=== PATIENT | female | born 1935 | race Caucasian/White ===

== ENCOUNTER 2016-09-05 15:08 | Emergency (ER) | payer MEDICARE, BC ==
[2016-09-05 16:01] VITALS: RESP 16; TEMP 97.9
--- NOTE | 2016-09-05 16:52 | ED ---
General Adult HPI - General Chief complaint: Fall Stated complaint: Fall/Arm and hip pain Time Seen by Provider: 09/05/16 16:25 Source: patient, RN notes reviewed, old records reviewed Mode of arrival: wheelchair Limitations: no limitations - History of Present Illness Initial comments: This is a 81-year-old female here for evaluation. Patient's today for evaluation of fall. Patient has follow-up with inability to ambulate, right hip pain and right wrist pain. Denied or had no loss of consciousness no blood thinners. Patient's main complaint is right wrist pain and right hip pain - Related Data Home Medications Medication Instructions Recorded Confirmed Ascorbic Acid [Vitamin C] 500 mg PO DAILY 01/14/15 09/05/16 Cholecalciferol [Vitamin D3] 1,000 unit PO DAILY 01/14/15 09/05/16 Citalopram Hydrobromide 20 mg PO DAILY 01/14/15 09/05/16 [Citalopram HBr] Cyanocobalamin [Vitamin B-12] 500 mcg PO DAILY 01/14/15 09/05/16 Lisinopril 10 mg PO DAILY 01/14/15 09/05/16 Meloxicam 15 mg PO DAILY 01/14/15 09/05/16 Multivitamins, Thera [Multivitamin 1 tab PO DAILY 01/14/15 09/05/16 (formulary)] Omeprazole 20 mg PO DAILY 01/14/15 09/05/16 Calcium Carbonate [Calcium] 600 mg PO DAILY 09/05/16 09/05/16 Fluticasone/Salmeterol [Advair 1 puff INHALATION RT-BID 09/05/16 09/05/16 250-50 Diskus] L.acidoph,Paracasei, B.lactis 1 cap PO DAILY 09/05/16 09/05/16 [Probiotic] Simethicone [Gas-X] 125 - 250 mg PO DAILY PRN 09/05/16 09/05/16 traMADol HCL [Ultram] 50 - 100 mg PO Q6HR PRN 09/05/16 09/05/16 Previous Rx's Medication Instructions Recorded HYDROcodone/APAP 5-325MG [[place] 1 tab PO Q6HR PRN #30 tab 09/05/16 5-325] Allergies Allergy/AdvReac Type Severity Reaction Status Date / Time Sulfa (Sulfonamide Allergy Rash/Hives Verified 09/05/16 16:48 Antibiotics) Review of Systems ROS Statement: Those systems with pertinent positive or pertinent negative responses have been documented in the HPI. ROS Other: All systems not noted in ROS Statement are negative. Past Medical History Past Medical History: Chest Pain / Angina, COPD, Hypertension, Osteoarthritis ( OA), Pneumonia Additional Past Medical History / Comment(s): 01/14/15 Pt presented to [facility] ER via EMS with chest pain which was a tightness across chest. Pain began 1-2 hours before arrival to ER. Other HX: IBS, UTIs, chronic back pain, scoliosis , DDD, R sided pneumonia 2013. History of Any Multi-Drug Resistant Organisms: None Reported Past Surgical History: Cholecystectomy, Joint Replacement Additional Past Surgical History / Comment(s): ovarian cyst removed, right knee replacement, colonoscopy-normal. Past Anesthesia/Blood Transfusion Reactions: No Reported Reaction Additional Past Anesthesia/Blood Transfusion Reaction / Comment(s): Pt has never recieved blood. Past Psychological History: Anxiety, Depression Additional Psychological History / Comment(s): Pt resides with her son. She is independent. She uses a walker or cane only if walking a long distance. She drives a car. Smoking Status: Former smoker Past Alcohol Use History: None Reported Additional Past Alcohol Use History / Comment(s): Pt smoked less than a ppd for about 15-20 yrs. She quit smoking in 1987. Past Drug Use History: None Reported - Past Family History Father Family Medical History: Congestive Heart Failure (CHF), Myocardial Infarction ( [place]) Additional Family Medical History / Comment(s): Father of CHF at 68yrs of age. Mother Family Medical History: CVA/TIA Additional Family Medical History / Comment(s): Mother of a massive CVA General Exam Limitations: no limitations General appearance: alert, in no apparent distress Head exam: Present: atraumatic, normocephalic, normal inspection Eye exam: Present: normal appearance, PERRL, EOMI. Absent: scleral icterus, conjunctival injection, periorbital swelling ENT exam: Present: normal exam, mucous membranes moist Neck exam: Present: normal inspection. Absent: tenderness, meningismus, lymphadenopathy Respiratory exam: Present: normal lung sounds bilaterally. Absent: respiratory distress, wheezes, rales, rhonchi, stridor Cardiovascular Exam: Present: regular rate, normal rhythm, normal heart sounds. Absent: systolic murmur, diastolic murmur, rubs, gallop, clicks GI/Abdominal exam: Present: soft, normal bowel sounds. Absent: distended, tenderness, guarding, rebound, rigid Extremities exam: Present: normal inspection, full ROM, normal capillary refill. Absent: tenderness, pedal edema, joint swelling, calf tenderness Back exam: Present: normal inspection Neurological exam: Present: alert, oriented X3, CN II-XII intact Psychiatric exam: Present: normal affect, normal mood Skin exam: Present: warm, dry, intact, normal color. Absent: rash Course Vital Signs 09/05/16 09/05/16 15:57 18:24 Temperature 97.9 F 97.9 F Pulse Rate 68 64 Respiratory 16 16 Rate Blood Pressure 130/78 159/70 O2 Sat by Pulse 98 97 Oximetry - Reevaluation(s) Reevaluation #1: Spoke with on-call orthopedics regarding issue, patient will put in splint and discharged home Procedures - Orthopedic Splinting/Casting Injury #1 Side: right Upper Extremity Injury Location: wrist Upper Extremity Immobilizer: sugar tong splint Medical Decision Making - Medical Decision Making 81 female here status post fall, mechanical fall with right wrist pain right hip pain. No hip fracture, positive right wrist contusion, possible scapholunate dissociation, patient will follow-up with orthopedics tomorrow - Radiology Data Radiology results: report reviewed (X-ray right wrist shows curious for scapholunate fracture, x-ray right hip is negative for acute disease), image reviewed Disposition Clinical Impression: Fall, Sprain of wrist, right Disposition: HOME SELF-CARE Condition: Good Instructions: Fall Prevention for Older Adults (ED), Wrist Sprain (ED) Prescriptions: HYDROcodone/APAP 5-325MG [[place] 5-325] 1 tab PO Q6HR PRN #30 tab PRN Reason: Pain Referrals: Candido Chapepll MD [Primary Care Provider] - 1-2 days
--- NOTE | 2016-09-05 16:54 | XR ---
EXAMINATION TYPE: 4 views right wrist. AP view pelvis and 2 views right hip. DATE OF EXAM: 09/05/2016 4:42 PM COMPARISON: NONE HISTORY: 81-year-old female with wrist and hip pain after fall today FINDINGS: Right wrist: There is TFC and synovial based calcification. Some dorsal soft tissue swelling is noted with lucency seen through the dorsal triquetrum on the lateral view. There is borderline widening of the scapholu janett interval at 2.1 mm. No additional acute fracture seen. Pelvis and right hip: Degenerative changes lower lumbar spine. SI joints appear symmetric and intact. Degenerative changes of the pubic symphysis. There is osteopenia without displaced fracture seen. Mild degenerative change s at the right greater than left hip. IMPRESSION: 1. Right wrist: Findings suspicious for nondisplaced dorsal triquetral fracture. Borderline widening of the scapholunate interval suggests age-indeterminate scapholunate ligament sprain. Correlate for a ny wrist instability. TFC and synovial calcifications are nonspecific but can be seen with CPPD. 2. Pelvis and right hip: Osteopenia without displaced fracture.
[2016-09-05] MEDS ORDERED: HYDROcodone/APAP 5-325MG 1 EACH TAB PO STA (18:04)
[2016-09-05 18:26] VITALS: BP 159/70; PULSE 64
== END 2016-09-05 18:27 | disposition home or self-care (01) ==
LOC: EC 15:08
DX: S63.501A Unspecified sprain of right wrist, initial encounter (principal); M25.551 Pain in right hip; I10 Essential (primary) hypertension; J44.9 Chronic obstructive pulmonary disease, unspecified; M19.90 Unspecified osteoarthritis, unspecified site; F41.9 Anxiety disorder, unspecified; Z87.891 Personal history of nicotine dependence; Z79.1 Long term (current) use of non-steroidal anti-inflammatories (NSAID); Z79.51 Long term (current) use of inhaled steroids; Z79.899 Other long term (current) drug therapy; Z88.2 Allergy status to sulfonamides; Z86.79 Personal history of other diseases of the circulatory system; Z87.19 Personal history of other diseases of the digestive system; W18.30XA Fall on same level, unspecified, initial encounter; Y92.009 Unspecified place in unspecified non-institutional (private) residence as the place of occurrence of the external cause
CPT/HCPCS: 73502; 99283

== ENCOUNTER → 2017-10-25 | Outpatient (CLI) | payer MEDICARE, BC ==
--- NOTE | 2017-10-25 11:32 | US ---
EXAMINATION TYPE: US abdomen complete DATE OF EXAM: 10/25/2017 COMPARISON: MRCP January 16, 2015 CLINICAL HISTORY: R74.8 Abnormal level of liver enzymes. Pt age 82, overlying bowel loops and kyphotic , limited scan EXAM MEASUREMENTS: Liver Length: 11.2 cm Gallbladder Wall: Surgically absent cm CBD: not seen cm Spleen: 9.4 cm Right Kidney: 7.3 x 3.0 x 2.5 cm Left Kidney: 7.5 x 3.6 x 3.4 cm Pancreas: Obscured by bowel gas gallbladder is now surgically absent Liver: Central intrahepatic biliary dilatation Gallbladder: Surgically absent Evidence for sonographic Akhtar's sign: No CBD: extra hepatic dilatation Spleen: wnl Right Kidney: wnl Left Kidney: mass medial between spleen and left kidney unable to determine what source 1.4 x 1.1 x 1.3 cm non vascular Upper IVC: wnl Abd Aorta: Obscured by overlying bowel gas The liver is homogenous. Mild to moderate central intrahepatic biliary dilatation is felt present. Bauer boptimal visualization of extra hepatic biliary system noted on images saved. The intrahepatic portio n of the IVC is within normal limits. Suboptimal evaluation of aorta on images saved due to shadowing from bowel gas. Gallbladder is now surgically absent. Common bile duct is unremarkable. The pancre as is suboptimally evaluated on images saved as there is shadowing from overlying bowel gas. The spl een is unremarkable. Technologist tristan 1.4 cm splenule between left kidney and spleen which correlat es with ultrasound. Kidneys are symmetric and free of hydronephrosis. No renal lesions are seen. IMPRESSION: Suboptimal study, there is suspected persistent mild to moderate central intrahepatic and probable extrahepatic biliary dilatation. Follow-up with CT and/or MRI is advised.
== END | disposition home or self-care (01) ==
LOC: RADUSWWP 10:09
PROVIDERS: ATTEND Family Medicine
DX: R74.8 Abnormal levels of other serum enzymes (principal)
CPT/HCPCS: 76700

== ENCOUNTER 2018-11-23 17:36 | Inpatient (IN) | payer MEDICARE, BC ==
[2018-11-23] MEDS ORDERED: SODIUM CHLORIDE 0.9% 1,000 ML IV STA ×2 (17:42)
[2018-11-23 18:11] LABS: Anisocytosis Slight; Basophils % (A) 0 %; Eosinophils # (A) 0.3 k/uL (0-0.7); Eosinophils % (A) 3 %; HCT 35.8 % (34.0-46.0); HGB 10.7 gm/dL (11.4-16.0); Hypochromasia Moderate; Lymphocytes # (A) 0.5 k/uL (1.0-4.8); Lymphocytes % (A) 6 %; MCHC 29.9 g/dL (31.0-37.0); Monocytes # (A) 0.1 k/uL (0-1.0); Monocytes % (A) 2 %; Neutrophils # (A) 7.7 k/uL (1.3-7.7); Neutrophils % (A) 89 %; Platelet Count 321 k/uL (150-450); RBC 3.98 m/uL (3.80-5.40); RDW 17.8 % (11.5-15.5); WBC 8.6 k/uL (3.8-10.6)
[2018-11-23 18:19] LABS: Albumin 3.4 g/dL (3.5-5.0); Calcium 8.9 mg/dL (8.4-10.2); Magnesium 1.8 mg/dL (1.6-2.3); Phosphorus 3.4 mg/dL (2.5-4.5); Potassium 5.9 mmol/L (3.5-5.1); Total Bilirubin 10.1 mg/dL (0.2-1.3); Total Protein 6.7 g/dL (6.3-8.2)
--- NOTE | 2018-11-23 18:20 | ED ---
Weakness HPI - General Chief complaint: Weakness Stated complaint: weakness, jaundice, fever Time Seen by Provider: 11/23/18 17:42 Source: patient, RN notes reviewed, old records reviewed Mode of arrival: EMS Limitations: no limitations - History of Present Illness Initial comments: This is an 83-year-old female the ER for evaluation. Patient resents today for evaluation of significant jaundice fever and weakness. Patient is found to be very weak and not feeling well. No recent travel history or sick contacts. Patient has no prior history of similar. Does have history of stent placement, bile duct stent placement. Denying any abdominal pain currently MD Complaint: generalized weakness -: unknown Location: generalized Severity: severe Severity scale (1-10): 9 Consistency: constant Improves with: none Worsens with: none Context: history of similar Associated Symptoms: loss of appetite, nausea/vomiting, shortness of breath - Related Data Home Medications Medication Instructions Recorded Confirmed Ascorbic Acid [Vitamin C] 500 mg PO DAILY 01/14/15 11/23/18 Cholecalciferol [Vitamin D3 (25 1,000 unit PO DAILY 01/14/15 11/23/18 Mcg = 1000 Iu)] Cyanocobalamin [Vitamin B-12] 500 mcg PO DAILY 01/14/15 11/23/18 Lisinopril 10 mg PO DAILY 01/14/15 11/23/18 Meloxicam 15 mg PO DAILY 01/14/15 11/23/18 Multivitamins, Thera [Multivitamin 1 tab PO DAILY 01/14/15 11/23/18 (formulary)] Omeprazole 20 mg PO DAILY 01/14/15 11/23/18 Calcium Carbonate [Calcium] 600 mg PO DAILY 09/05/16 11/23/18 Fluticasone/Salmeterol [Advair 1 puff INHALATION RT-BID 09/05/16 11/23/18 250-50 Diskus] L.acidoph,Paracasei, B.lactis 1 cap PO DAILY 09/05/16 11/23/18 [Probiotic] Simethicone [Gas-X] 125 - 250 mg PO DAILY PRN 09/05/16 11/23/18 traMADol HCL [Ultram] 50 mg PO Q6HR PRN 09/05/16 11/23/18 Nystatin 1 applic TOPICAL BID 11/23/18 11/23/18 Sertraline [Zoloft] 50 mg PO DAILY 11/23/18 11/23/18 Allergies Allergy/AdvReac Type Severity Reaction Status Date / Time Sulfa (Sulfonamide Allergy Rash/Hives Verified 11/23/18 19:04 Antibiotics) Review of Systems ROS Statement: Those systems with pertinent positive or pertinent negative responses have been documented in the HPI. ROS Other: All systems not noted in ROS Statement are negative. Past Medical History Past Medical History: Chest Pain / Angina, COPD, Hypertension, Osteoarthritis (OA), Pneumonia Additional Past Medical History / Comment(s): 01/14/15 Pt presented to [facility] ER via EMS with chest pain which was a tightness across chest. Pain began 1-2 hours before arrival to ER. Other HX: IBS, UTIs, chronic back pain, scoliosis, DDD, R sided pneumonia 2013. History of Any Multi-Drug Resistant Organisms: None Reported Past Surgical History: Cholecystectomy, Joint Replacement Additional Past Surgical History / Comment(s): ovarian cyst removed, right knee replacement, colonoscopy-normal. Past Anesthesia/Blood Transfusion Reactions: No Reported Reaction Additional Past Anesthesia/Blood Transfusion Reaction / Comment(s): Pt has never recieved blood. Past Psychological History: Anxiety, Depression Smoking Status: Former smoker Past Alcohol Use History: None Reported Past Drug Use History: None Reported - Past Family History Father Family Medical History: Congestive Heart Failure (CHF), Myocardial Infarction ([place]) Additional Family Medical History / Comment(s): Father of CHF at 68yrs of age. Mother Family Medical History: CVA/TIA Additional Family Medical History / Comment(s): Mother of a massive CVA General Exam - General Exam Comments Initial Comments: jaundice Limitations: no limitations General appearance: alert, in no apparent distress Head exam: Present: atraumatic, normocephalic, normal inspection Eye exam: Present: normal appearance, PERRL, EOMI. Absent: scleral icterus, conjunctival injection, periorbital swelling ENT exam: Present: normal exam, mucous membranes moist Neck exam: Present: normal inspection. Absent: tenderness, meningismus, lymphadenopathy Respiratory exam: Present: normal lung sounds bilaterally. Absent: respiratory distress, wheezes, rales, rhonchi, stridor Cardiovascular Exam: Present: regular rate, normal rhythm, normal heart sounds. Absent: systolic murmur, diastolic murmur, rubs, gallop, clicks GI/Abdominal exam: Present: soft, normal bowel sounds. Absent: distended, tenderness, guarding, rebound, rigid Extremities exam: Present: normal inspection, full ROM, normal capillary refill. Absent: tenderness, pedal edema, joint swelling, calf tenderness Back exam: Present: normal inspection Neurological exam: Present: alert, oriented X3, CN II-XII intact Psychiatric exam: Present: normal affect, normal mood Skin exam: Present: warm, dry, intact, normal color. Absent: rash Course Vital Signs 11/23/18 11/23/18 11/23/18 17:45 17:47 18:20 Temperature 100.1 F H Pulse Rate 132 H 86 Pulse Rate [ 135 H Left Sitting Drafter (Cad) Electrical ] Respiratory 18 16 Rate Blood Pressure 111/70 116/61 O2 Sat by Pulse 96 100 Oximetry 11/23/18 11/23/18 11/23/18 19:05 21:24 23:24 Temperature 98.7 F 98.4 F Pulse Rate 92 101 H 70 Pulse Rate [ Left Sitting Drafter (Cad) Electrical ] Respiratory 16 18 18 Rate Blood Pressure 116/71 122/71 132/74 O2 Sat by Pulse 99 96 95 Oximetry - Reevaluation(s) Reevaluation #1: Medical records reviewed Patient is without distress Spoke with Dr. Jack will evaluate patient in regards to possible stent placement or change placement, evaluation for infection EKG Findings - EKG Comments: EKG Findings:: EKG shows A. fib rate of 96, QRS 80, QTC 429 Medical Decision Making - Medical Decision Making 83 female the ER for evaluation, patient has possible stent migration of bile duct versus infection, patient replace on antibiotics hydration to reevaluate lab values the morning and evaluation by GI - Lab Data Result diagrams: 11/23/18 17:55 11/24/18 05:00 Lab Results 11/23/18 11/23/18 11/23/18 Range/Units 17:55 17:55 17:55 WBC 8.6 (3.8-10.6) k/uL RBC 3.98 (3.80-5.40) m/uL Hgb 10.7 L (11.4-16.0) gm/dL Hct 35.8 (34.0-46.0) % MCV 90.0 (80.0-100.0) fL MCH 27.0 (25.0-35.0) pg MCHC 29.9 L (31.0-37.0) g/dL RDW 17.8 H (11.5-15.5) % Plt Count 321 (150-450) k/uL Neutrophils % 89 % Lymphocytes % 6 % Monocytes % 2 % Eosinophils % 3 % Basophils % 0 % Neutrophils # 7.7 (1.3-7.7) k/uL Lymphocytes # 0.5 L (1.0-4.8) k/uL Monocytes # 0.1 (0-1.0) k/uL Eosinophils # 0.3 (0-0.7) k/uL Basophils # 0.0 (0-0.2) k/uL Hypochromasia Moderate Anisocytosis Slight PT (9.0-12.0) sec INR (<1.2) APTT (22.0-30.0) sec Sodium 138 (137-145) mmol/L Potassium 5.9 H (3.5-5.1) mmol/L Chloride 108 H (98-107) mmol/L Carbon Dioxide 19 L (22-30) mmol/L Anion Gap 11 mmol/L BUN 39 H (7-17) mg/dL Creatinine 1.39 H (0.52-1.04) mg/dL Est GFR (CKD-EPI)AfAm 41 (>60 ml/min/1.73 sqM) Est GFR (CKD-EPI)NonAf 36 (>60 ml/min/1.73 sqM) Glucose 93 (74-99) mg/dL Plasma Lactic Acid Kenny 1.6 (0.7-2.0) mmol/L Calcium 8.9 (8.4-10.2) mg/dL Phosphorus 3.4 (2.5-4.5) mg/dL Magnesium 1.8 (1.6-2.3) mg/dL Total Bilirubin 10.1 H (0.2-1.3) mg/dL AST 228 H (14-36) U/L ALT 100 H (9-52) U/L Alkaline Phosphatase 895 H (38-126) U/L Creatine Kinase 53 (30-135) U/L Troponin I (0.000-0.034) ng/mL Total Protein 6.7 (6.3-8.2) g/dL Albumin 3.4 L (3.5-5.0) g/dL Amylase 36 (30-110) U/L Lipase 67 (23-300) U/L Blood Type Blood Type Confirm Blood Type Recheck Antibody Screen Spec Expiration Date 11/23/18 11/23/18 11/23/18 Range/Units 17:55 17:55 17:55 WBC (3.8-10.6) k/uL RBC (3.80-5.40) m/uL Hgb (11.4-16.0) gm/dL Hct (34.0-46.0) % MCV (80.0-100.0) fL MCH (25.0-35.0) pg MCHC (31.0-37.0) g/dL RDW (11.5-15.5) % Plt Count (150-450) k/uL Neutrophils % % Lymphocytes % % Monocytes % % Eosinophils % % Basophils % % Neutrophils # (1.3-7.7) k/uL Lymphocytes # (1.0-4.8) k/uL Monocytes # (0-1.0) k/uL Eosinophils # (0-0.7) k/uL Basophils # (0-0.2) k/uL Hypochromasia Anisocytosis PT 10.9 (9.0-12.0) sec INR 1.0 (<1.2) APTT 18.7 L (22.0-30.0) sec Sodium (137-145) mmol/L Potassium (3.5-5.1) mmol/L Chloride (98-107) mmol/L Carbon Dioxide (22-30) mmol/L Anion Gap mmol/L BUN (7-17) mg/dL Creatinine (0.52-1.04) mg/dL Est GFR (CKD-EPI)AfAm (>60 ml/min/1.73 sqM) Est GFR (CKD-EPI)NonAf (>60 ml/min/1.73 sqM) Glucose (74-99) mg/dL Plasma Lactic Acid Kenny (0.7-2.0) mmol/L Calcium (8.4-10.2) mg/dL Phosphorus (2.5-4.5) mg/dL Magnesium (1.6-2.3) mg/dL Total Bilirubin (0.2-1.3) mg/dL AST (14-36) U/L ALT (9-52) U/L Alkaline Phosphatase (38-126) U/L Creatine Kinase (30-135) U/L Troponin I 0.490 H* (0.000-0.034) ng/mL Total Protein (6.3-8.2) g/dL Albumin (3.5-5.0) g/dL Amylase (30-110) U/L Lipase (23-300) U/L Blood Type O Positive Blood Type Confirm Blood Type Recheck CABO Indicated Antibody Screen NEGATIVE Spec Expiration Date 11/26/2018235411/23/18 Range/Units 18:25 WBC (3.8-10.6) k/uL RBC (3.80-5.40) m/uL Hgb (11.4-16.0) gm/dL Hct (34.0-46.0) % MCV (80.0-100.0) fL MCH (25.0-35.0) pg MCHC (31.0-37.0) g/dL RDW (11.5-15.5) % Plt Count (150-450) k/uL Neutrophils % % Lymphocytes % % Monocytes % % Eosinophils % % Basophils % % Neutrophils # (1.3-7.7) k/uL Lymphocytes # (1.0-4.8) k/uL Monocytes # (0-1.0) k/uL Eosinophils # (0-0.7) k/uL Basophils # (0-0.2) k/uL Hypochromasia Anisocytosis PT (9.0-12.0) sec INR (<1.2) APTT (22.0-30.0) sec Sodium (137-145) mmol/L Potassium (3.5-5.1) mmol/L Chloride (98-107) mmol/L Carbon Dioxide (22-30) mmol/L Anion Gap mmol/L BUN (7-17) mg/dL Creatinine (0.52-1.04) mg/dL Est GFR (CKD-EPI)AfAm (>60 ml/min/1.73 sqM) Est GFR (CKD-EPI)NonAf (>60 ml/min/1.73 sqM) Glucose (74-99) mg/dL Plasma Lactic Acid Kenny (0.7-2.0) mmol/L Calcium (8.4-10.2) mg/dL Phosphorus (2.5-4.5) mg/dL Magnesium (1.6-2.3) mg/dL Total Bilirubin (0.2-1.3) mg/dL AST (14-36) U/L ALT (9-52) U/L Alkaline Phosphatase (38-126) U/L Creatine Kinase (30-135) U/L Troponin I (0.000-0.034) ng/mL Total Protein (6.3-8.2) g/dL Albumin (3.5-5.0) g/dL Amylase (30-110) U/L Lipase (23-300) U/L Blood Type Blood Type Confirm O Positive Blood Type Recheck Antibody Screen Spec Expiration Date - Radiology Data Radiology results: report reviewed (CT of abdomen pelvis shows possible migration of bowel duct stent, ultrasound gallbladder shows significant dilation of bile duct), image reviewed Critical Care Time Critical Care Time: Yes Total Critical Care Time: 31 Disposition Clinical Impression: Fever, Dehydration, Hyperbilirubinemia, Cholangitis Disposition: ADMITTED IP TO [facility] Condition: Fair Is patient prescribed a controlled substance at d/c from ED?: No
[2018-11-23 18:41] LABS: Prothrombin Time 10.9 sec (9.0-12.0)
[2018-11-23 18:44] LABS: Partial Thromboplastin Time 18.7 sec (22.0-30.0)
--- NOTE | 2018-11-23 20:23 | CT ---
EXAMINATION TYPE: CT abdomen pelvis wo con DATE OF EXAM: 11/23/2018 COMPARISON: None HISTORY: Weakness, fever and jaundice. CT DLP: 398.6 mGycm Automated exposure control for dose reduction was used. TECHNIQUE: Helical acquisition of images was performed from the lung bases through the pelvis. FINDINGS: There is coarse interstitial density at the lung bases. There is large hiatal hernia. There is intrat horacic stomach. There is no pericardial effusion. Spleen is intact. There is no evidence of pancreat ic mass. There is biliary stent. The bile ducts appear dilated. Common bile duct is 2.3 cm. There is no definite discrete liver mass. There is no adrenal mass. Kidneys have normal size. There is no hydronephrosis. There are several sma ll calculi in the right kidney to measure up to 3 mm. There is no hydronephrosis. There is no retrope ritoneal adenopathy. Abdominal aorta is atheromatous. Ureters are not dilated. Bladder distends adriana hly. There is no free fluid in the pelvis. There is no evidence of bowel obstruction. There is no int estinal wall thickening. There is thoracolumbar dextroscoliosis. There are spondylotic changes in the thoracic and lumbar spine. There is osteopenia. Bony pelvis appears intact. IMPRESSION: DILATED BILE DUCTS WITH BILIARY STENT THAT COULD BE MALPOSITIONED IN THE COMMON HEPATIC DUCT AND COMM ON BILE DUCT. STENT DOES NOT APPEAR TO BE IN THE DUODENUM. ATHEROSCLEROTIC VASCULAR DISEASE. FIBROTIC CHANGES AT THE LUNG BASES. LARGE HIATAL HERNIA.
[2018-11-23] MEDS ORDERED: PIPERACILLIN-TAZOBACTAM 3.375 GM in SODIUM CHLORIDE 0.9% 100 ML IVPB STA (20:54)
[2018-11-23] MEDS: SODIUM CHLORIDE 0.9% 500 ML 500 ML IV SCH (22:34)
--- NOTE | 2018-11-23 22:44 | US ---
EXAM: US Abdomen Complete CLINICAL HISTORY: ITS.REASON US Reason: Pain TECHNIQUE: Real-time ultrasound of the abdomen (complete) with image documentation. COMPARISON: CT abdomen/pelvis on 11/23/2018 FINDINGS: Liver: Measures 17.5 cm, mildly enlarged. Increased echogenicity is suggestive of hepatic steatosis. No focal lesion. Gallbladder: Prior cholecystectomy. Biliary tree: Enlarged common bile duct containing echogenic material and shadowing structure, concerning for choledocholithiasis. Intrahepatic biliary dilatation. Pancreas: Visualized portions are unremarkable. Right kidney: Measures 10.0 cm in length. No hydronephrosis or stone. No mass. Peritoneal space: Normal. No free fluid. IVC: Visualized portions are unremarkable. IMPRESSION: Enlarged common bile duct containing echogenic material and shadowing structure, concerning for choledocholithiasis. Intrahepatic biliary dilatation. Further evaluation could be performed with ERCP or MRCP if clinically indicated. Mild hepatomegaly.
[2018-11-24 00:10] LABS: Glucose,Whole Blood 92 mg/dL (75-99)
[2018-11-24 00:42] VITALS: BMI 23.2
[2018-11-24] MEDS: SODIUM CHLORIDE 0.9% 1,000 ML IV SCH ×3 (04:43→12:39)
[2018-11-24 05:35] LABS: ALT 84 U/L (9-52); AST 138 U/L (14-36); African American GFR (CKD) 44 (>60 ml/min/1.73 sqM); Albumin 2.5 g/dL (3.5-5.0); Alkaline Phosphatase 709 U/L (38-126); Anion Gap 8 mmol/L; Blood Urea Nitrogen 32 mg/dL (7-17); Calcium 8.4 mg/dL (8.4-10.2); Carbon Dioxide 19 mmol/L (22-30); Chloride 113 mmol/L (98-107); Glucose 80 mg/dL (74-99); Potassium 4.4 mmol/L (3.5-5.1); Sodium 140 mmol/L (137-145); Total Bilirubin 7.3 mg/dL (0.2-1.3); Total Protein 5.3 g/dL (6.3-8.2)
[2018-11-24 05:36] LABS: Amylase <30 U/L (30-110)
[2018-11-24] MEDS ORDERED: PANTOPRAZOLE 40 MG/10 ML VIAL IV SCH (09:00)
[2018-11-24] MEDS: PIPERACILLIN-TAZOBACTAM 3.375 GM in SODIUM CHLORIDE 0.9% 100 ML IVPB SCH ×2 (09:31→16:23)
[2018-11-24] MEDS ORDERED: traMADol 50 MG TAB PO PRN (12:10)
[2018-11-24] MEDS ORDERED: SODIUM CHLORIDE 0.45% 1,000 ML IV SCH (12:15)
--- NOTE | 2018-11-24 14:19 | P.HPIM ---
History of Present Illness 83-year-old female was brought in because of generalized weakness and jaundice and found to have highly elevated bilirubin of 7.1 and found to have choledocholithiasis and was febrile probably ascending cholangeitis patient had a biliary stent in 2013 which appears to be partly misplaced may be converted into her symptoms patient was started on Zosyn. Gastroenterology evaluated the patient patient probably need to be transferred to tertiary center for the stent removal. Patient denies significant abdominal pain abdomen is soft nontender. Patient has blood cultures that are positive for gram-negative bacilli. Repeat blood cultures will be obtained here. Review of Systems REVIEW OF SYSTEMS: CONSTITUTIONAL: As mentioned in HPI HEENT: No recent visual problems or hearing problems. Denied any sore throat. CARDIOVASCULAR: No chest pain, orthopnea, PND, no palpitations, no syncope. PULMONARY: No shortness of breath, no cough, no hemoptysis. GASTROINTESTINAL: No diarrhea, no nausea, no vomiting, no abdominal pain. NEUROLOGICAL: No headaches, no weakness, no numbness. HEMATOLOGICAL: Denies any bleeding or petechiae. GENITOURINARY: Denies any burning micturition, frequency, or urgency. MUSCULOSKELETAL/RHEUMATOLOGICAL: Denies any joint pain, swelling, or any muscle pain. ENDOCRINE: Denies any polyuria or polydipsia. The rest of the 14-point review of systems is negative. Past Medical History Past Medical History: Atrial Fibrillation, Chest Pain / Angina, COPD, Hypertension, Osteoarthritis (OA), Pneumonia Additional Past Medical History / Comment(s): Other HX: IBS, UTIs, chronic back pain, scoliosis, DDD, R sided pneumonia 2013. History of Any Multi-Drug Resistant Organisms: None Reported Past Surgical History: Cholecystectomy, Joint Replacement Additional Past Surgical History / Comment(s): ovarian cyst removed, right knee replacement, colonoscopy-normal. Past Anesthesia/Blood Transfusion Reactions: No Reported Reaction Additional Past Anesthesia/Blood Transfusion Reaction / Comment(s): Pt has never recieved blood. Past Psychological History: Anxiety, Depression Additional Psychological History / Comment(s): Pt resides with her son. She is independent. She uses a walker or cane only if walking a long distance. Smoking Status: Former smoker Past Alcohol Use History: None Reported Additional Past Alcohol Use History / Comment(s): Pt smoked less than a ppd for about 15-20 yrs. She quit smoking in 1987. Past Drug Use History: None Reported - Past Family History Father Family Medical History: Congestive Heart Failure (CHF), Myocardial Infarction ([place]) Additional Family Medical History / Comment(s): Father of CHF at 68yrs of age. Mother Family Medical History: CVA/TIA Additional Family Medical History / Comment(s): Mother of a massive CVA Medications and Allergies Home Medications Medication Instructions Recorded Confirmed Type Ascorbic Acid [Vitamin C] 500 mg PO DAILY 01/14/15 11/23/18 History Cholecalciferol [Vitamin D3 (25 1,000 unit PO DAILY 01/14/15 11/23/18 History Mcg = 1000 Iu)] Cyanocobalamin [Vitamin B-12] 500 mcg PO DAILY 01/14/15 11/23/18 History Lisinopril 10 mg PO DAILY 01/14/15 11/23/18 History Meloxicam 15 mg PO DAILY 01/14/15 11/23/18 History Multivitamins, Thera [Multivitamin 1 tab PO DAILY 01/14/15 11/23/18 History (formulary)] Omeprazole 20 mg PO DAILY 01/14/15 11/23/18 History Calcium Carbonate [Calcium] 600 mg PO DAILY 09/05/16 11/23/18 History Fluticasone/Salmeterol [Advair 1 puff INHALATION RT-BID 09/05/16 11/23/18 History 250-50 Diskus] L.acidoph,Paracasei, B.lactis 1 cap PO DAILY 09/05/16 11/23/18 History [Probiotic] Simethicone [Gas-X] 125 - 250 mg PO DAILY PRN 09/05/16 11/23/18 History traMADol HCL [Ultram] 50 mg PO Q6HR PRN 09/05/16 11/23/18 History Nystatin 1 applic TOPICAL BID 11/23/18 11/23/18 History Sertraline [Zoloft] 50 mg PO DAILY 11/23/18 11/23/18 History Allergies Allergy/AdvReac Type Severity Reaction Status Date / Time Sulfa (Sulfonamide Allergy Rash/Hives Verified 11/23/18 19:04 Antibiotics) Physical Exam Vitals: Vital Signs Temp Pulse Pulse Resp BP Pulse Ox 11/24/18 12:00 97.8 F 62 16 144/65 94 L 11/24/18 10:00 56 L 18 140/68 11/24/18 09:00 97.7 F 58 L 17 147/75 11/24/18 08:00 70 12 174/80 11/24/18 07:00 63 14 134/92 11/24/18 06:00 55 L 20 128/59 11/24/18 05:00 61 14 137/74 11/24/18 04:00 58 L 18 132/83 98 11/24/18 03:00 61 15 135/65 11/24/18 02:00 75 20 11/24/18 01:00 97.9 F 70 16 142/73 99 11/24/18 00:00 20 11/23/18 23:24 98.4 F 70 18 132/74 95 11/23/18 21:24 98.7 F 101 H 18 122/71 96 11/23/18 19:05 92 16 116/71 99 11/23/18 18:20 86 16 116/61 100 11/23/18 17:47 100.1 F H 132 H 18 111/70 96 11/23/18 17:45 135 H Intake and Output 11/23/18 11/24/18 11/24/18 22:59 06:59 14:59 Output Total 150 Balance -150 Output: Urine 150 Other: Voiding Method Bedpan Bedpan # Voids 1 # Bowel Movements 1 Weight 63.503 kg 65.1 kg PHYSICAL EXAMINATION: GENERAL: The patient is alert and oriented x3, not in any acute distress. Well developed, well nourished. HEENT: Pupils are round and equally reacting to light. EOMI. does have scleral icterus. No conjunctival pallor. Normocephalic, atraumatic. No pharyngeal erythema. No thyromegaly. CARDIOVASCULAR: S1 and S2 present. No murmurs, rubs, or gallops. PULMONARY: Chest is clear to auscultation, no wheezing or crackles. ABDOMEN: Soft, nontender, nondistended, normoactive bowel sounds. No palpable organomegaly. MUSCULOSKELETAL: No joint swelling or deformity. EXTREMITIES: No cyanosis, clubbing, or pedal edema. NEUROLOGICAL: Gross neurological examination did not reveal any focal deficits. SKIN: No rashes. Results CBC & Chem 7: 11/23/18 17:55 11/24/18 05:00 Labs: Abnormal Lab Results - Last 24 Hours (Table) 11/23/18 11/23/18 11/23/18 Range/Units 17:55 17:55 17:55 Hgb 10.7 L (11.4-16.0) gm/dL MCHC 29.9 L (31.0-37.0) g/dL RDW 17.8 H (11.5-15.5) % Lymphocytes # 0.5 L (1.0-4.8) k/uL APTT 18.7 L (22.0-30.0) sec Potassium 5.9 H (3.5-5.1) mmol/L Chloride 108 H (98-107) mmol/L Carbon Dioxide 19 L (22-30) mmol/L BUN 39 H (7-17) mg/dL Creatinine 1.39 H (0.52-1.04) mg/dL Total Bilirubin 10.1 H (0.2-1.3) mg/dL AST 228 H (14-36) U/L ALT 100 H (9-52) U/L Alkaline Phosphatase 895 H (38-126) U/L Troponin I (0.000-0.034) ng/mL Total Protein (6.3-8.2) g/dL Albumin 3.4 L (3.5-5.0) g/dL Amylase (30-110) U/L 11/23/18 11/24/18 Range/Units 17:55 05:00 Hgb (11.4-16.0) gm/dL MCHC (31.0-37.0) g/dL RDW (11.5-15.5) % Lymphocytes # (1.0-4.8) k/uL APTT (22.0-30.0) sec Potassium (3.5-5.1) mmol/L Chloride 113 H (98-107) mmol/L Carbon Dioxide 19 L (22-30) mmol/L BUN 32 H (7-17) mg/dL Creatinine 1.32 H (0.52-1.04) mg/dL Total Bilirubin 7.3 H (0.2-1.3) mg/dL AST 138 H (14-36) U/L ALT 84 H (9-52) U/L Alkaline Phosphatase 709 H (38-126) U/L Troponin I 0.490 H* (0.000-0.034) ng/mL Total Protein 5.3 L (6.3-8.2) g/dL Albumin 2.5 L (3.5-5.0) g/dL Amylase <30 L (30-110) U/L Microbiology - Last 24 Hours (Table) 11/23/18 17:55 Blood Culture Gram Stain - Preliminary Blood 11/23/18 17:55 Blood Culture - Final Blood Thrombosis Risk Factor Assmnt - Choose All That Apply Any of the Below Risk Factors Present?: Yes Each Factor Represents 1 point: Abnormal pulmonary function (COPD) Other Risk Factors: Yes Each Risk Factor Represents 3 Points: Age 75 years or older Thrombosis Risk Factor Assessment Total Risk Factor Score: 4 Thrombosis Risk Factor Assessment Level: Moderate Risk Assessment and Plan Plan: Sepsis and bacteremia probably secondary to ascending cholangitis and choledocholithiasis. Patient was admitted on Zosyn IV fluids, depending and GI recommendations patient patient probably needed to be transfer to tertiary facility that was the biliary stent that was placed in 2013. -Acute renal failure: Probably seconded to sepsis possibility of acute tubular necrosis or prerenal azotemia patient regarding on IV fluids and IV fluids will be switched to half-normal saline because of hyperchloremia -Nonanion on gap metabolic acidosis secondary to hyperchloremia -Elevated liver enzymes secondary to choledocholithiasis -Mild troponin elevation without any significant EKG changes although patient appears to have significant PVCs it was read as atrial fibrillation. We'll repeat the 2 more sets of troponins if they remain stable at that level of around 0.4 no further intervention is necessary. -Hypokalemia secondary to lisinopril and acute renal failure, TERENCE will be held -Gastroesophageal reflux disease -DVT prophylaxis with subcutaneous heparin
--- NOTE | 2018-11-24 15:22 | P.CONS ---
History of Present Illness - Reason for Consult Consult date: 11/24/18 obstructive jaundice Requesting physician: Sravan Marie - Chief Complaint abdominal pain jaundice - History of Present Illness 83-year-old female with a history of calculus cholecystectomy more than 35 years ago, choledocholithiasis 2014 status post ERCP with biliary stent placement presents with acute upper abdominal pain dark colored urine jaundice fever and weakness for the past few days. Admission white count 8.6. Hemoglobin 10.7. Platelet 321. INR 1.0. BUN 39. Creatinine 1.3. Total bilirubin 10.1. AST 228. ALT 100. AP 895. Lipase 67. T-max 100.1. Blood cultures preliminarily gram-negative bacteria. ERCP January 2015 secondary to abnormal liver enzymes and MRI reported a dilated common bile duct with a large filling defect consistent with a common bile duct stone measuring approximately 2 cm in diameter. Sphincterotomy was performed however stone was not extracted placement of a 7-Russian 7 cm biliary stent. Review of medical records liver function tests one year ago were within normal limits. LFTs today total bilirubin 7.3. AST 1:30. ALT 84. AP 709. CT reported dilated common bile duct 2.3 cm with evidence of biliary stent could be malpositioned in the common hepatic duct. No pancreatic mass. Large hiatal hernia. Ultrasound of large common bile duct containing echogenic material insuring structuring concerning for choledocholithiasis with intrahepatic biliary duct dilatation. Review of Systems RConstitutional: Reports fever, denies chills, sweats, weight gain, or loss. Weakness. HEENT: Negative for migraines, blurred vision or loss, earaches, drainage, tinni tus, oral mucosal lesions, dysphagia, or odynophagia. CARDIAC: Negative for chest pain, arrhythmias, or palpitation. RESPIRATORY: Negative for shortness of breath, hemoptysis, cough, or sputum production. GI: See HPI for pertinent findings. : Negative for hematuria, urgency, frequency, polyuria, or dysuria. GYNc: Denies possibility of . Negative vaginal discharge. MUSCULOSKELETAL: Negative for muscle aches, swelling, arthritis, and arthralgias. NEUROLOGIC: Negative for stroke or TIA. ENDOCRINE: Negative for thyroid problems. SKIN: Negative for rash or itching. PSYCHIATRIC: Negative history for depression and anxietyale Past Medical History Past Medical History: Atrial Fibrillation, Chest Pain / Angina, COPD, Hypertension, Osteoarthritis (OA), Pneumonia Additional Past Medical History / Comment(s): Other HX: IBS, UTIs, chronic back pain, scoliosis, DDD, R sided pneumonia 2013. History of Any Multi-Drug Resistant Organisms: None Reported Past Surgical History: Cholecystectomy, Joint Replacement Additional Past Surgical History / Comment(s): ovarian cyst removed, right knee replacement, colonoscopy-normal. Past Anesthesia/Blood Transfusion Reactions: No Reported Reaction Additional Past Anesthesia/Blood Transfusion Reaction / Comm: Pt has never recieved blood. Past Psychological History: Anxiety, Depression Additional Psychological History / Comment(s): Pt resides with her son. She is independent. She uses a walker or cane only if walking a long distance. Smoking Status: Former smoker Past Alcohol Use History: None Reported Additional Past Alcohol Use History / Comment(s): Pt smoked less than a ppd for about 15-20 yrs. She quit smoking in 1987. Past Drug Use History: None Reported - Past Family History Father Family Medical History: Congestive Heart Failure (CHF), Myocardial Infarction ([place]) Additional Family Medical History / Comment(s): Father of CHF at 68yrs of age. Mother Family Medical History: CVA/TIA Additional Family Medical History / Comment(s): Mother of a massive CVA Medications and Allergies Home Medications Medication Instructions Recorded Confirmed Type Ascorbic Acid [Vitamin C] 500 mg PO DAILY 01/14/15 11/23/18 History Cholecalciferol [Vitamin D3 (25 1,000 unit PO DAILY 01/14/15 11/23/18 History Mcg = 1000 Iu)] Cyanocobalamin [Vitamin B-12] 500 mcg PO DAILY 01/14/15 11/23/18 History Lisinopril 10 mg PO DAILY 01/14/15 11/23/18 History Meloxicam 15 mg PO DAILY 01/14/15 11/23/18 History Multivitamins, Thera [Multivitamin 1 tab PO DAILY 01/14/15 11/23/18 History (formulary)] Omeprazole 20 mg PO DAILY 01/14/15 11/23/18 History Calcium Carbonate [Calcium] 600 mg PO DAILY 09/05/16 11/23/18 History Fluticasone/Salmeterol [Advair 1 puff INHALATION RT-BID 09/05/16 11/23/18 History 250-50 Diskus] L.acidoph,Paracasei, B.lactis 1 cap PO DAILY 09/05/16 11/23/18 History [Probiotic] Simethicone [Gas-X] 125 - 250 mg PO DAILY PRN 09/05/16 11/23/18 History traMADol HCL [Ultram] 50 mg PO Q6HR PRN 09/05/16 11/23/18 History Nystatin 1 applic TOPICAL BID 11/23/18 11/23/18 History Sertraline [Zoloft] 50 mg PO DAILY 11/23/18 11/23/18 History Allergies Allergy/AdvReac Type Severity Reaction Status Date / Time Sulfa (Sulfonamide Allergy Rash/Hives Verified 11/23/18 19:04 Antibiotics) Physical Exam Vitals: Vital Signs Temp Pulse Pulse Resp BP Pulse Ox 11/24/18 12:00 97.8 F 62 16 144/65 94 L 11/24/18 10:00 56 L 18 140/68 11/24/18 09:00 97.7 F 58 L 17 147/75 11/24/18 08:00 70 12 174/80 11/24/18 07:00 63 14 134/92 11/24/18 06:00 55 L 20 128/59 11/24/18 05:00 61 14 137/74 11/24/18 04:00 58 L 18 132/83 98 11/24/18 03:00 61 15 135/65 11/24/18 02:00 75 20 11/24/18 01:00 97.9 F 70 16 142/73 99 11/24/18 00:00 20 11/23/18 23:24 98.4 F 70 18 132/74 95 11/23/18 21:24 98.7 F 101 H 18 122/71 96 11/23/18 19:05 92 16 116/71 99 11/23/18 18:20 86 16 116/61 100 11/23/18 17:47 100.1 F H 132 H 18 111/70 96 11/23/18 17:45 135 H Intake and Output 11/23/18 11/24/18 11/24/18 22:59 06:59 14:59 Output Total 150 Balance -150 Output: Urine 150 Other: Voiding Method Bedpan Bedpan # Voids 1 # Bowel Movements 1 Weight 63.503 kg 65.1 kg General appearance: The patient is alert, oriented, in no acute distress. Jaundice. HET: Head is normocephalic and atraumatic. Pupils are equal and reactive. Sclerae icterus. Oropharynx is clear without lesions. Neck: Supple without lymphadenopathy. Trachea midline. Heart: S1 S2. Regular rate and rhythm. Lungs: No crackles or wheezes are heard. Abdomen: Soft, minimal tenderness midepigastrium, nondistended with bowel sounds. No peritoneal signs. No palpable organomegaly or masses. Extremities: Jaundice. Normal skin color and turgor. No cyanosis, rash, ulceration, clubbing, or edema. Radial and pedal pulses are 2/4 bilaterally. Neurological: No focal deficits. Strength and sensation are grossly intact. Results CBC & Chem 7: 11/23/18 17:55 11/24/18 05:00 Labs: Abnormal Lab Results - Last 24 Hours (Table) 11/23/18 11/23/18 11/23/18 Range/Units 17:55 17:55 17:55 Hgb 10.7 L (11.4-16.0) gm/dL MCHC 29.9 L (31.0-37.0) g/dL RDW 17.8 H (11.5-15.5) % Lymphocytes # 0.5 L (1.0-4.8) k/uL APTT 18.7 L (22.0-30.0) sec Potassium 5.9 H (3.5-5.1) mmol/L Chloride 108 H (98-107) mmol/L Carbon Dioxide 19 L (22-30) mmol/L BUN 39 H (7-17) mg/dL Creatinine 1.39 H (0.52-1.04) mg/dL Total Bilirubin 10.1 H (0.2-1.3) mg/dL AST 228 H (14-36) U/L ALT 100 H (9-52) U/L Alkaline Phosphatase 895 H (38-126) U/L Troponin I (0.000-0.034) ng/mL Total Protein (6.3-8.2) g/dL Albumin 3.4 L (3.5-5.0) g/dL Amylase (30-110) U/L 11/23/18 11/24/18 Range/Units 17:55 05:00 Hgb (11.4-16.0) gm/dL MCHC (31.0-37.0) g/dL RDW (11.5-15.5) % Lymphocytes # (1.0-4.8) k/uL APTT (22.0-30.0) sec Potassium (3.5-5.1) mmol/L Chloride 113 H (98-107) mmol/L Carbon Dioxide 19 L (22-30) mmol/L BUN 32 H (7-17) mg/dL Creatinine 1.32 H (0.52-1.04) mg/dL Total Bilirubin 7.3 H (0.2-1.3) mg/dL AST 138 H (14-36) U/L ALT 84 H (9-52) U/L Alkaline Phosphatase 709 H (38-126) U/L Troponin I 0.490 H* (0.000-0.034) ng/mL Total Protein 5.3 L (6.3-8.2) g/dL Albumin 2.5 L (3.5-5.0) g/dL Amylase <30 L (30-110) U/L Microbiology - Last 24 Hours (Table) 11/23/18 17:55 Blood Culture Gram Stain - Preliminary Blood 11/23/18 17:55 Blood Culture - Final Blood CT scan - abdomen: report reviewed (Dr. Jack) US - abdomen: report reviewed (Dr. Fuentes) Assessment and Plan (1) Obstructive jaundice Narrative/Plan: 83-year-old female with a history of his cholecystectomy 1 and 35 years ago and previous history of obstructive jaundice secondary to choledocholithiasis 2015 status post ERCP with biliary stent placement unable to perform stone extraction admitted with weakness new-onset of jaundice fever with elevated liver enzymes and gram-negative bacteremia consistent with acute sepsis cholangitis most likely from persistent choledocholithiasis and/or possible biliary stent occlusion. CT abdominal imaging as well as ultrasound reported dilated common bile duct with echogenic material suggestive of choledocholithiasis with redemonstration of biliary stent which appears to be in the common hepatic duct. Current Visit: Yes Status: Acute Code(s): K83.1 - OBSTRUCTION OF BILE DUCT SNOMED Code(s): 16066545 (2) Choledocholithiasis Current Visit: Yes Status: Acute Code(s): K80.50 - CALCULUS OF BILE DUCT W/O CHOLANGITIS OR CHOLECYST W/O OBST SNOMED Code(s): 871914191 (3) Gram-negative bacteremia Current Visit: Yes Status: Acute Code(s): R78.81 - BACTEREMIA SNOMED Code(s): 134377690231 (4) Cholangitis Current Visit: Yes Status: Acute Code(s): K83.09 - OTHER CHOLANGITIS SNOMED Code(s): 00111432 (5) Fever Current Visit: Yes Status: Acute Code(s): R50.9 - FEVER, UNSPECIFIED SNOMED Code(s): 377744465 (6) History of biliary stent insertion Current Visit: Yes Status: Acute Code(s): Z98.890 - OTHER SPECIFIED POSTPROCEDURAL STATES SNOMED Code(s): 315663760 (7) History of cholecystectomy Current Visit: Yes Status: Acute Code(s): Z90.49 - ACQUIRED ABSENCE OF OTHER SPECIFIED PARTS OF DIGESTIVE TRACT SNOMED Code(s): 865608734 Plan: 1. Nothing by mouth. 2. Continue with IV antibiotics. 3. Dr. Jack is recommending transfer to tertiary center for ERCP/hepatobiliary consult. Thank you for this kind referral and the opportunity to participate in the care of your patient. This consultation was discussed with Dr. Jack. The impression and plan of care have been directed as dictated.
[2018-11-24 16:30] VITALS: BP 145/75
[2018-11-24] MEDS: SYMBICORT 80-4.5 MCG INHALER INHALATION SCH (19:31)
[2018-11-24 20:41] VITALS: PULSE 63; RESP 34; TEMP 98.4
[2018-11-24] MEDS ORDERED: NYSTATIN 100,000 UNIT/GM OINT 30 GM TUBE TOPICAL SCH (21:00)
[2018-11-25] MEDS: SYMBICORT 80-4.5 MCG INHALER INHALATION SCH (07:39)
[2018-11-25] MEDS ORDERED: SERTRALINE 50 MG TAB PO SCH (09:00)
--- NOTE | 2018-11-25 15:35 | P.DS ---
Providers Date of admission: 11/23/18 20:54 Expected date of discharge: 11/24/18 Attending physician: Joie Osuna Consults: 11/23/18 21:02 Consult Physician Routine Consulting Provider: Neo Jack Consult Reason/Comments: hyperbili Do you want consulting provider notified?: Yes Primary care physician: Candido Chappell [facility] Course: Patient was later transferred to [facility] for possible removal of biliary stent and requirement of higher level of care. Patient Condition at Discharge: Fair Plan - Discharge Summary New Discharge Prescriptions: No Action Omeprazole 20 mg PO DAILY Meloxicam 15 mg PO DAILY Lisinopril 10 mg PO DAILY Multivitamins, Thera [Multivitamin (formulary)] 1 tab PO DAILY Cyanocobalamin [Vitamin B-12] 500 mcg PO DAILY Cholecalciferol [Vitamin D3 (25 Mcg = 1000 Iu)] 1,000 unit PO DAILY Ascorbic Acid [Vitamin C] 500 mg PO DAILY traMADol HCL [Ultram] 50 mg PO Q6HR PRN PRN Reason: Pain Simethicone [Gas-X] 125 - 250 mg PO DAILY PRN PRN Reason: Indigestion Fluticasone/Salmeterol [Advair 250-50 Diskus] 1 puff INHALATION RT-BID Calcium Carbonate [Calcium] 600 mg PO DAILY L.acidoph,Paracasei, B.lactis [Probiotic] 1 cap PO DAILY Sertraline [Zoloft] 50 mg PO DAILY Nystatin 1 applic TOPICAL BID Discharge Medication List Ascorbic Acid [Vitamin C] 500 mg PO DAILY 01/14/15 [History] Cholecalciferol [Vitamin D3 (25 Mcg = 1000 Iu)] 1,000 unit PO DAILY 01/14/15 [History] Cyanocobalamin [Vitamin B-12] 500 mcg PO DAILY 01/14/15 [History] Lisinopril 10 mg PO DAILY 01/14/15 [History] Meloxicam 15 mg PO DAILY 01/14/15 [History] Multivitamins, Thera [Multivitamin (formulary)] 1 tab PO DAILY 01/14/15 [History] Omeprazole 20 mg PO DAILY 01/14/15 [History] Calcium Carbonate [Calcium] 600 mg PO DAILY 09/05/16 [History] Fluticasone/Salmeterol [Advair 250-50 Diskus] 1 puff INHALATION RT-BID 09/05/16 [History] L.acidoph,Paracasei, B.lactis [Probiotic] 1 cap PO DAILY 09/05/16 [History] Simethicone [Gas-X] 125 - 250 mg PO DAILY PRN 09/05/16 [History] traMADol HCL [Ultram] 50 mg PO Q6HR PRN 09/05/16 [History] Nystatin 1 applic TOPICAL BID 11/23/18 [History] Sertraline [Zoloft] 50 mg PO DAILY 11/23/18 [History] Follow up Appointment(s)/Referral(s): Candido Chappell MD [Primary Care Provider] - 1-2 days Discharge Disposition: OTHER INSTITUTION NOT DEFINED
== END 2018-11-24 21:30 | disposition short-term general hospital (02) | DRG 871 ==
LOC: EC 17:36 → 3SCARD 20:54 → 2SICU 11-24 00:11
PROVIDERS: ADMIT Hospitalist; ATTEND Hospitalist
DX: A41.50 Gram-negative sepsis, unspecified (principal); N17.0 Acute kidney failure with tubular necrosis; T85.520A Displacement of bile duct prosthesis, initial encounter; E87.2 Acidosis; K80.31 Calculus of bile duct with cholangitis, unspecified, with obstruction; Y73.8 Miscellaneous gastroenterology and urology devices associated with adverse incidents, not elsewhere classified; E86.0 Dehydration; E87.6 Hypokalemia; E87.8 Other disorders of electrolyte and fluid balance, not elsewhere classified; F32.9 Major depressive disorder, single episode, unspecified; F41.9 Anxiety disorder, unspecified; I10 Essential (primary) hypertension; I48.91 Unspecified atrial fibrillation; I49.3 Ventricular premature depolarization; J44.9 Chronic obstructive pulmonary disease, unspecified; K21.9 Gastro-esophageal reflux disease without esophagitis; K44.9 Diaphragmatic hernia without obstruction or gangrene; K58.9 Irritable bowel syndrome, unspecified; M41.9 Scoliosis, unspecified; T46.4X5A Adverse effect of angiotensin-converting-enzyme inhibitors, initial encounter; Z79.1 Long term (current) use of non-steroidal anti-inflammatories (NSAID); Z79.899 Other long term (current) drug therapy; Z82.3 Family history of stroke; Z82.49 Family history of ischemic heart disease and other diseases of the circulatory system; Z87.01 Personal history of pneumonia (recurrent); Z87.891 Personal history of nicotine dependence; Z90.49 Acquired absence of other specified parts of digestive tract; Z96.651 Presence of right artificial knee joint; Z88.2 Allergy status to sulfonamides
CPT/HCPCS: 36415; 74176; 76705; 80053; 82150; 82550; 83605; 83690; 83735; 84100; 84484; 85025; 85610; 85730; 86850; 86900; 86901; 87040; 87077; 87186; 93005; 94640; 96361; 96365; 96367; 99291

== ENCOUNTER 2019-01-23 14:09 | Inpatient (IN) | payer MEDICARE, BC ==
[2019-01-23] MEDS ORDERED: methylPREDNISolone SOD SUCCI 125 MG/2 ML VIAL IV STA (15:03)
[2019-01-23] MEDS ORDERED: IPRATROPIUM 0.5 MG/2.5 ML NEBU INHALATION STA (15:03)
[2019-01-23] MEDS ORDERED: ALBUTEROL NEBULIZED 2.5 MG/3 ML INHALATION STA (15:03)
[2019-01-23 15:26] LABS: Anisocytosis Slight; Basophils # (A) 0.1 k/uL (0-0.2); Basophils % (A) 2 %; Eosinophils # (A) 0.3 k/uL (0-0.7); Eosinophils % (A) 3 %; Hypochromasia Marked; Lymphocytes # (A) 1.2 k/uL (1.0-4.8); Lymphocytes % (A) 12 %; MCH 25.8 pg (25.0-35.0); MCHC 31.3 g/dL (31.0-37.0); Mean Platelet Volume 8.3; Monocytes # (A) 0.6 k/uL (0-1.0); Monocytes % (A) 6 %; Neutrophils # (A) 7.5 k/uL (1.3-7.7); Neutrophils % (A) 77 %; Platelet Count 319 k/uL (150-450); Poikilocytosis Slight; RBC 4.26 m/uL (3.80-5.40); RDW 17.2 % (11.5-15.5); WBC 9.8 k/uL (3.8-10.6)
[2019-01-23 15:33] LABS: Albumin 3.3 g/dL (3.5-5.0); Calcium 9.1 mg/dL (8.4-10.2); Magnesium 1.5 mg/dL (1.6-2.3); Potassium 4.5 mmol/L (3.5-5.1); Total Bilirubin 1.2 mg/dL (0.2-1.3); Total Protein 6.6 g/dL (6.3-8.2)
--- NOTE | 2019-01-23 15:34 | ED ---
General Adult HPI - General Chief complaint: Shortness of Breath Stated complaint: SOB/irregular heartbeat Time Seen by Provider: 01/23/19 14:10 Source: patient, RN notes reviewed Mode of arrival: wheelchair Limitations: no limitations - History of Present Illness Initial comments: This is an 83-year-old female presents emergency Department complaining of shortness of breath per patient states she has a history of COPD. Patient states this morning she woke up and she was short of breath and continues to be. Patient denies any chest pain or palpitations. Patient denies any fever chills or cough. Patient states this feels like a typical COPD. Patient denies any abdominal pain. Patient denies any vomiting or diarrhea. Patient denies headache patient denies numbness weakness. Patient denies any leg swelling or calf tenderness. Patient denies any recent injury or trauma. - Related Data Home Medications Medication Instructions Recorded Confirmed Cholecalciferol [Vitamin D3 (25 1,000 unit PO DAILY 01/14/15 01/23/19 Mcg = 1000 Iu)] Omeprazole 20 mg PO DAILY 01/14/15 01/23/19 traMADol HCL [Ultram] 50 mg PO Q6HR PRN 09/05/16 01/23/19 Sertraline [Zoloft] 50 mg PO DAILY 11/23/18 01/23/19 Apixaban [Eliquis] 2.5 mg PO BID 01/23/19 01/23/19 Metoprolol Tartrate [Lopressor] 25 mg PO BID 01/23/19 01/23/19 Allergies Allergy/AdvReac Type Severity Reaction Status Date / Time Sulfa (Sulfonamide Allergy Rash/Hives Verified 01/23/19 14:12 Antibiotics) Review of Systems ROS Statement: Those systems with pertinent positive or pertinent negative responses have been documented in the HPI. ROS Other: All systems not noted in ROS Statement are negative. Past Medical History Past Medical History: Atrial Fibrillation, Chest Pain / Angina, COPD, Hy pertension, Osteoarthritis (OA), Pneumonia Additional Past Medical History / Comment(s): 01/14/15 Pt presented to [facility] ER via EMS with chest pain which was a tightness across chest. Pain began 1-2 hours before arrival to ER. Other HX: IBS, UTIs, chronic back pain, scolios is, DDD, R sided pneumonia 2013. History of Any Multi-Drug Resistant Organisms: None Reported Past Surgical History: Cholecystectomy, Joint Replacement Additional Past Surgical History / Comment(s): ovarian cyst removed, right knee replacement, colonoscopy-normal. Past Anesthesia/Blood Transfusion Reactions: No Reported Reaction Additional Past Anesthesia/Blood Transfusion Reaction / Comment(s): Pt has never recieved blood. Past Psychological History: Anxiety, Depression Smoking Status: Former smoker Past Alcohol Use History: None Reported Past Drug Use History: None Reported - Past Family History Father Family Medical History: Congestive Heart Failure (CHF), Myocardial Infarction (DC) Additional Family Medical History / Comment(s): Father of CHF at 68yrs of age. Mother Family Medical History: CVA/TIA Additional Family Medical History / Comment(s): Mother of a massive CVA General Exam - General Exam Comments Initial Comments: GENERAL: Patient is well-developed and well-nourished. Patient is nontoxic and well- hydrated and is in mild distress. ENT: Neck is soft and supple. No significant lymphadenopathy is noted. Oropharynx is clear. Moist mucous membranes. Neck has full range of motion without eliciting any pain. EYES: The sclera were anicteric and conjunctiva were pink and moist. Extraocular movements were intact and pupils were equal round and reactive to light. Eyelids were unremarkable. PULMONARY: Patient has a very wheezing diffusely. CARDIOVASCULAR: There is a regular rate and rhythm without any murmurs gallops or rubs. ABDOMEN: Soft and nontender with normal bowel sounds. No palpable organomegaly was noted. There is no palpable pulsatile mass. SKIN: Skin is clear with no lesions or rashes and otherwise unremarkable. NEUROLOGIC: Patient is alert and oriented x3. Cranial nerves II through XII are grossly intact. Motor and sensory are also intact. Normal speech, volume and content. Symmetrical smile. MUSCULOSKELETAL: Normal extremities with adequate strength and full range of motion. No lower e xtremity swelling or edema. No calf tenderness. LYMPHATICS: No significant lymphadenopathy is noted PSYCHIATRIC: Normal psychiatric evaluation. Limitations: no limitations Course Vital Signs 01/23/19 01/23/19 01/23/19 14:12 14:36 15:48 Temperature 97.0 F L Pulse Rate 94 120 H 116 H Respiratory 18 16 Rate Blood Pressure 91/76 O2 Sat by Pulse 95 86 L Oximetry 01/23/19 01/23/19 01/23/19 15:50 16:06 17:01 Temperature Pulse Rate 116 H 112 H 122 H Respiratory 20 20 Rate Blood Pressure 111/53 107/61 O2 Sat by Pulse 96 98 Oximetry Medical Decision Making - Medical Decision Making EKG shows atrial fibrillation at a rate of 102 bpm QRS is 80 QT intervals 316 QTC is 427. Patient's EKG shows no ST segment elevation or depression. Chest x-ray showed pulmonary fibrosis. CT showed no pulmonary embolism but did again show pulmonary fibrosis and no signs of pulmonary edema. CT also showed a possible stomach volvulus however the patient was having no problems swallowing patient was having no chest pain or abdominal pain. I will back and if the patient received steroids and breathing treatments she felt considerably better with statin 95-96% on 3 L. I spoke with Dr. Chappell he agreed to admit the patient admitted the patient wrote admitting orders - Lab Data Result diagrams: 01/23/19 14:40 01/23/19 14:40 Lab Results 01/23/19 01/23/19 01/23/19 Range/Units 14:40 14:40 14:40 WBC 9.8 (3.8-10.6) k/uL RBC 4.26 (3.80-5.40) m/uL Hgb 11.0 L (11.4-16.0) gm/dL Hct 35.0 (34.0-46.0) % MCV 82.3 D (80.0-100.0) fL MCH 25.8 (25.0-35.0) pg MCHC 31.3 (31.0-37.0) g/dL RDW 17.2 H (11.5-15.5) % Plt Count 319 (150-450) k/uL Neutrophils % 77 % Lymphocytes % 12 % Monocytes % 6 % Eosinophils % 3 % Basophils % 2 % Neutrophils # 7.5 (1.3-7.7) k/uL Lymphocytes # 1.2 (1.0-4.8) k/uL Monocytes # 0.6 (0-1.0) k/uL Eosinophils # 0.3 (0-0.7) k/uL Basophils # 0.1 (0-0.2) k/uL Hypochromasia Marked Poikilocytosis Slight Anisocytosis Slight PT 10.8 (9.0-12.0) sec INR 1.0 (<1.2) APTT 27.2 (22.0-30.0) sec D-Dimer 1.57 H (<0.60) mg/L FEU Sodium 137 (137-145) mmol/L Potassium 4.5 (3.5-5.1) mmol/L Chloride 100 (98-107) mmol/L Carbon Dioxide 29 (22-30) mmol/L Anion Gap 8 mmol/L BUN 18 H (7-17) mg/dL Creatinine 0.78 (0.52-1.04) mg/dL Est GFR (CKD-EPI)AfAm 83 (>60 ml/min/1.73 sqM) Est GFR (CKD-EPI)NonAf 72 (>60 ml/min/1.73 sqM) Glucose 102 H (74-99) mg/dL Calcium 9.1 (8.4-10.2) mg/dL Magnesium 1.5 L (1.6-2.3) mg/dL Total Bilirubin 1.2 (0.2-1.3) mg/dL AST 30 (14-36) U/L ALT 12 (9-52) U/L Alkaline Phosphatase 86 (38-126) U/L Troponin I (0.000-0.034) ng/mL NT-Pro-B Natriuret Pep pg/mL Total Protein 6.6 (6.3-8.2) g/dL Albumin 3.3 L (3.5-5.0) g/dL Urine Color Urine Appearance (Clear) Urine pH (5.0-8.0) Ur Specific L[place]y (1.001-1.035) Urine Protein (Negative) Urine Glucose (UA) (Negative) Urine Ketones (Negative) Urine Blood (Negative) Urine Nitrite (Negative) Urine Bilirubin (Negative) Urine Urobilinogen (<2.0) mg/dL Ur Leukocyte Esterase (Negative) Urine RBC (0-5) /hpf Urine WBC (0-5) /hpf Ur Squamous Epith Cells (0-4) /hpf Urine Mucus (None) /hpf 01/23/19 01/23/19 01/23/19 Range/Units 14:40 14:40 17:20 WBC (3.8-10.6) k/uL RBC (3.80-5.40) m/uL Hgb (11.4-16.0) gm/dL Hct (34.0-46.0) % MCV (80.0-100.0) fL MCH (25.0-35.0) pg MCHC (31.0-37.0) g/dL RDW (11.5-15.5) % Plt Count (150-450) k/uL Neutrophils % % Lymphocytes % % Monocytes % % Eosinophils % % Basophils % % Neutrophils # (1.3-7.7) k/uL Lymphocytes # (1.0-4.8) k/uL Monocytes # (0-1.0) k/uL Eosinophils # (0-0.7) k/uL Basophils # (0-0.2) k/uL Hypochromasia Poikilocytosis Anisocytosis PT (9.0-12.0) sec INR (<1.2) APTT (22.0-30.0) sec D-Dimer (<0.60) mg/L FEU Sodium (137-145) mmol/L Potassium (3.5-5.1) mmol/L Chloride (98-107) mmol/L Carbon Dioxide (22-30) mmol/L Anion Gap mmol/L BUN (7-17) mg/dL Creatinine (0.52-1.04) mg/dL Est GFR (CKD-EPI)AfAm (>60 ml/min/1.73 sqM) Est GFR (CKD-EPI)NonAf (>60 ml/min/1.73 sqM) Glucose (74-99) mg/dL Calcium (8.4-10.2) mg/dL Magnesium (1.6-2.3) mg/dL Total Bilirubin (0.2-1.3) mg/dL AST (14-36) U/L ALT (9-52) U/L Alkaline Phosphatase (38-126) U/L Troponin I <0.012 (0.000-0.034) ng/mL NT-Pro-B Natriuret Pep 1520 pg/mL Total Protein (6.3-8.2) g/dL Albumin (3.5-5.0) g/dL Urine Color Yellow Urine Appearance Clear (Clear) Urine pH 6.0 (5.0-8.0) Ur Specific L[place] 1.022 (1.001-1.035) Urine Protein Negative (Negative) Urine Glucose (UA) Negative (Negative) Urine Ketones Negative (Negative) Urine Blood Negative (Negative) Urine Nitrite Negative (Negative) Urine Bilirubin Negative (Negative) Urine Urobilinogen 2.0 (<2.0) mg/dL Ur Leukocyte Esterase Small H (Negative) Urine RBC 6 H (0-5) /hpf Urine WBC 4 (0-5) /hpf Ur Squamous Epith Cells 1 (0-4) /hpf Urine Mucus Rare H (None) /hpf Disposition Clinical Impression: COPD exacerbation, Pulmonary fibrosis Disposition: ADMITTED IP TO THIS HOSP Referrals: Candido Chappell MD [Primary Care Provider] - 1-2 days Time of Disposition: 18:51
[2019-01-23 15:38] LABS: Partial Thromboplastin Time 27.2 sec (22.0-30.0); Prothrombin Time 10.8 sec (9.0-12.0)
[2019-01-23 15:41] LABS: MCV 82.3 fL (80.0-100.0)
--- NOTE | 2019-01-23 15:43 | XR ---
EXAMINATION TYPE: XR chest 2V DATE OF EXAM: 01/23/2019 COMPARISON: Chest x-ray January 14, 2015. HISTORY: Difficulty in breathing. TECHNIQUE: Frontal and lateral views of the chest are obtained. FINDINGS: There is background reticular interstitial changes with increasing lower lung alveolar int erstitial opacities extending along lateral aspect of the right lung. No pleural effusion or pneumoth orax is noted bilaterally. The cardiac silhouette size is felt upper limits of normal. Retrocardiac opacities consistent with moderate to large sized hiatal hernia is redemonstrated. The osseous stru ctures are intact. IMPRESSION: There is alveolar and interstitial edema and/or infiltrates lower lungs and periphery id entified bilaterally on background chronic parenchymal changes.
[2019-01-23 15:48] LABS: D-Dimer 1.57 mg/L FEU (<0.60)
[2019-01-23] MEDS ORDERED: FUROSEMIDE 10 MG/ML 4 ML VIAL IV STA (16:16)
--- NOTE | 2019-01-23 17:06 | CT ---
EXAMINATION TYPE: CT chest angio for PE DATE OF EXAM: 01/23/2019 COMPARISON: None HISTORY: Shortness of breath. CT DLP: 228.9 mGycm Automated exposure control for dose reduction was used. CONTRAST: CT Chest for pulmonary embolism performed with with IV Contrast, patient injected with 100 mL of Isov ue 370. FINDINGS: There are 3-D post processed images. There is large hiatal hernia with intrathoracic stomach. There i s possible volvulus of the stomach. There is extensive reticular interstitial infiltrate throughout the lungs with honeycomb pattern seen diffusely in the upper and lower lobes. There is lower lobe bronchiectasis. There is mild pulmonary emphysema. Thoracic aorta is atheromatous. There is no aneurysm. There is normal contrast opacification of the p ulmonary arteries. I see no filling defect. There are numerous mediastinal and bronchial lymph nodes that measure up to 2 cm. There is pleural thickening at the posterior lung bases. There is biliary st ent noted. There is air in the anterior biliary tree. IMPRESSION: Extensive pulmonary interstitial fibrosis. No evidence of pulmonary embolism. There is possible volvulus of the intrathoracic stomach. Limited upper GI exam would be helpful for f urther evaluation if clinically indicated. Stomach is not dilated and I do not see evidence of an obs truction.
[2019-01-23 17:37] LABS: Appearance,Urine Clear (Clear); Bilirubin,Urine Negative (Negative); Blood,Urine Negative (Negative); Color,Urine Yellow; Glucose,Urine (UA) Negative (Negative); Ketones,Urine Negative (Negative); Leukocyte Esterase,Urine Small (Negative); Mucus,Urine Rare /hpf; Nitrite,Urine Negative (Negative); Protein,Urine Negative (Negative); RBC,Urine 6 /hpf (0-5); Specific Gravity,Urine 1.022 (1.001-1.035); Squamous Epithelial Cell,Urine 1 /hpf (0-4)
[2019-01-23] MEDS ORDERED: IPRATROPIUM-ALBUTEROL 3 ML NEB INHALATION PRN (18:52)
[2019-01-23] MEDS ORDERED: METOPROLOL TARTRATE 25 MG TAB PO STA (19:07)
[2019-01-23] MEDS ORDERED: traMADol 50 MG TAB PO PRN (20:27)
--- NOTE | 2019-01-23 21:42 | HP ---
HISTORY AND PHYSICAL DATE OF SERVICE: 01/23/2019 CHIEF COMPLAINT: Shortness of breath. HISTORY OF PRESENT ILLNESS: This 83-year-old woman with a past medical history of multiple medical illnesses, atrial fibrillation, history of COPD, history of DJD, history of hypertension, history of pneumonia, history of cholecystectomy, being followed by Dr. Candido Chappell in the outpatient setting, the patient was recently admitted to [facility] with cholangitis, sepsis, and patient was transferred to [facility] where a biliary stent was removed and replaced. Currently after getting out from [facility], the patient was having weakness, shortness of breath. The patient was receiving rehab in [facility], but because of increased shortness of breath, the patient came to [facility] and was admitted for further evaluation and treatment. The patient underwent a CT angio of the chest which showed no evidence of pulmonary embolism, but showed multiple other findings including large hiatal hernia with intrathoracic stomach and possible volvulus and also extensive reticular interstitial infiltrates through the lungs with honeycomb appearance and numerous mediastinal bronchial lymph nodes also noted. The patient admitted for further evaluation and treatment. There is no history of fever, rigors or chills. No history of headache, loss of consciousness or seizures at this time. PAST MEDICAL HISTORY: History of atrial fibrillation, history of chest pain, CHF, COPD, hypertension, DJD, history of pneumonia, cholecystectomy, anxiety, depression. MEDICATIONS: Home medications are: 1. Ultram 50 mg q.6h p.r.n. 2. Zoloft 50 mg p.o. daily. 3. Omeprazole 20 mg p.o. daily. 4. Lopressor 25 mg p.o. b.i.d. 5. Vitamin D3 1000 daily. 6. Eliquis 2.5 mg p.o. b.i.d. ALLERGIES: SULFA. FAMILY HISTORY: History of CHF, myocardial infarction. SOCIAL HISTORY: Previous history of smoking. No history of current smoking or alcohol intake. REVIEW OF SYSTEMS: ENT diminished hearing. Diminished vision. CARDIOVASCULAR as mentioned earlier. RESPIRATORY: As mentioned earlier. GI as mentioned earlier. : No dysuria or hematuria. NERVOUS SYSTEM: No numbness or weakness. ALLERGY/IMMUNOLOGY: No asthma or hayfever. MUSCULOSKELETAL as mentioned earlier. HEMATOLOGY/ONCOLOGY: No history of anemia. ENDOCRINE: No history of diabetes or hypothyroidism. CONSTITUTIONAL: As mentioned earlier. DERMATOLOGY: Negative. RHEUMATOLOGY negative. PSYCHIATRY as mentioned earlier. PHYSICAL EXAMINATION: The patient is alert and oriented x3. Pulse is 125, irregular. Blood pressure 120/66, respirations 29, temperature normal. Pulse ox 98% on 3 L. HEENT is conjunctivae normal. Oral mucosa moist. Neck is no jugular venous distention. No carotid bruit. No lymph node enlargement. Cardiovascular system: S1, S2, tachycardic irregular. RESPIRATIONS: Breath sounds diminished in the bases. Bilateral scattered rhonchi and crackles. Expiratory wheezing also present. ABDOMEN: Soft, mild diffuse distention. Nontender. No guarding. No rigidity. No mass palpable. LEGS: No edema, no swelling. NERVOUS SYSTEM: Higher functions as mentioned earlier. Moves all 4 limbs. No focal motor or sensory deficits. LYMPHATICS: No lymph nodes palpable in the neck, axillae or groin. SKIN: No ulcer, no rashes and no bleeding. JOINTS: No active deforming arthropathy. LAB STUDIES: WBC 9.2, hemoglobin 11. D-dimer is 1.57. Glucose is 102, magnesium is 1.5, albumin is 3.3. ASSESSMENT: 1. Shortness of breath with possible chronic obstructive pulmonary disease acute exacerbation with acute bilateral bronchopneumonia possibly hospital-acquired. 2. Anemia. 3. Elevated D-dimer with no evidence of pulmonary embolism. 4. Large hiatal hernia with intrathoracic stomach with suspicious volvulus. 5. Hypomagnesemia. 6. History of recent ERCP and stent replacement from [facility]. 7. Atrial fibrillation with fast ventricular rate. 8. History of chronic obstructive pulmonary disease. 9. Hypertension. 10.History of degenerative joint disease. 11.History of pneumonia. 12.History of multiple urinary tract infections. 13.History of back pain/degenerative joint disease. 14.History of cholecystectomy. 15.History of anxiety, depression. 16.Remote history of nicotine dependence. RECOMMENDATIONS AND DISCUSSION: In this 83-year-old woman who presented with multiple complex medical issues, we will monitor the patient closely. Continue the current medications, management and symptomatic treatment. We will initiate broad-spectrum IV antibiotics, bronchodilators, IV steroids. Also recommend cardiology and cardiothoracic surgery evaluation also. The overall prognosis guarded because of multiple complex medical issues and further recommendations to follow and we will resume the home medications. DVT prophylaxis. See orders for details. Proton pump inhibitors. Copy of this dictation being forwarded to Dr. Candido Chappell who is the primary physician. MMODL / IJN: [id number] /
[2019-01-23 22:00] VITALS: BMI 24.3
[2019-01-23] MEDS: METOPROLOL TARTRATE 25 MG TAB PO SCH (22:15)
[2019-01-23] MEDS: APIXABAN 2.5 MG TABLET PO SCH (22:43)
[2019-01-23] MEDS: PANTOPRAZOLE 40 MG/10 ML VIAL IVP SCH (22:43)
[2019-01-23] MEDS: PIPERACILLIN-TAZOBACTAM 3.375 GM in SODIUM CHLORIDE 0.9% 100 ML IVPB SCH (23:26)
[2019-01-23] MEDS: methylPREDNISolone SOD SUCCI 125 MG/2 ML VIAL IV SCH (23:26)
[2019-01-24] MEDS: METOPROLOL TARTRATE 25 MG TAB PO SCH ×3 (00:21→21:41)
[2019-01-24] MEDS: methylPREDNISolone SOD SUCCI 125 MG/2 ML VIAL IV SCH ×2 (05:08→12:14)
[2019-01-24 07:05] LABS: Glucose,Whole Blood 162 mg/dL (75-99)
[2019-01-24 07:24] LABS: Anisocytosis Slight; Basophils % (A) 1 %; Eosinophils % (A) 1 %; HCT 33.3 % (34.0-46.0); HGB 10.4 gm/dL (11.4-16.0); Hypochromasia Moderate; Lymphocytes # (A) 1.1 k/uL (1.0-4.8); Lymphocytes % (A) 18 %; MCH 25.2 pg (25.0-35.0); MCHC 31.2 g/dL (31.0-37.0); MCV 80.7 fL (80.0-100.0); Mean Platelet Volume 7.4; Microcytosis Slight; Monocytes # (A) 0.1 k/uL (0-1.0); Monocytes % (A) 2 %; Neutrophils # (A) 4.5 k/uL (1.3-7.7); Neutrophils % (A) 78 %; Platelet Count 289 k/uL (150-450); RBC 4.12 m/uL (3.80-5.40); RDW 17.2 % (11.5-15.5); WBC 5.7 k/uL (3.8-10.6)
[2019-01-24 07:41] LABS: Calcium 9.1 mg/dL (8.4-10.2)
[2019-01-24] MEDS: APIXABAN 2.5 MG TABLET PO SCH ×2 (09:00→21:41)
[2019-01-24] MEDS: PANTOPRAZOLE 40 MG/10 ML VIAL IVP SCH (09:00)
[2019-01-24] MEDS: PIPERACILLIN-TAZOBACTAM 3.375 GM in SODIUM CHLORIDE 0.9% 100 ML IVPB SCH (09:00)
[2019-01-24] MEDS: CHOLECALCIFEROL 1,000 UNIT TAB PO SCH (09:01)
[2019-01-24] MEDS: SERTRALINE 50 MG TAB PO SCH (09:01)
[2019-01-24] MEDS: BUDESONIDE 1 MG/2 ML NEBU INHALATION SCH ×2 (09:06→21:09)
[2019-01-24] MEDS: IPRATROPIUM-ALBUTEROL 3 ML NEB INHALATION SCH ×4 (09:06→21:09)
[2019-01-24] MEDS: FORMOTEROL FUMARATE 20 MCG/2 ML NEBU INHALATION SCH ×2 (09:06→21:09)
--- NOTE | 2019-01-24 10:07 | CDI ---
Documentation Clarification Form Date: 01/24/2019 9:57:18 AM From: Renetta Mcarthur RN, CCDS Admit Date: 01/23/2019 6:52:00 PM Patient Name: Christy Glover Visit Number: [id number] ATTENTION: The Clinical Documentation Specialists (CDI) and [facility] Coding Staff appreciate your assistance in clarifying documentation. Please respond to the clarification below the line at the bottom and electronically sign. The CDI & [facility] Coding staff will review the response and follow-up if needed. Please note: Queries are made part of the Legal Health Record. If you have any questions, please contact the author of this message via ITS. Dr. Osuna A diagnosis of anemia lacks specificity to accurately reflect your patients severity of condition and clarification is needed. History/Risk Factors: COPD, Bronchopneumonia, Atrial FIb Clinical indicators: 01/23 H&P: "Anemia" Hemoglobin: 11/10.4 Hematocrit: 35/33.3 Treatment: Monitoring labs In order to capture the severity of condition, please clarify the type of anemia and etiology if known: Acute blood loss anemia Acute on chronic blood loss anemia Chronic blood loss anemia Iron deficiency anemia Drug induced anemia Nutritional anemia Anemia of chronic disease Unable to determine Other, please specify (Last Revision: February 2017) Anemia of chronic disease MTDD
--- NOTE | 2019-01-24 10:15 | CDI ---
Documentation Clarification Form Date: 01/24/2019 10:07:45 AM From: Renetta Mcarthur RN, CCDS Admit Date: 01/23/2019 6:52:00 PM Patient Name: Christy Glover Visit Number: [id number] ATTENTION: The Clinical Documentation Specialists (CDI) and [facility] Coding Staff appreciate your assistance in clarifying documentation. Please respond to the clarification below the line at the bottom and electronically sign. The CDI & [facility] Coding staff will review the response and follow-up if needed. Please note: Queries are made part of the Legal Health Record. If you have any questions, please contact the author of this message via ITS. Dr. Joie Osuna Atrial Fibrillation is documented in the H& and requires further specificity History/Risk Factors: Atrial Fib, Chest pain, CHF, COPD, HTN, Anxiety, depression Clinical Indicators: EKG/telemetry: Atrial Fib with RVR Treatment: Consults: cardiology Eliquis 2.5 mg PO BID Lopressor 25 mg PO BID In your professional opinion, can you please clarify the type of Atrial Fibrillation, if known? Chronic/Permanent Paroxysmal Persistent Other, please specify Unable to determine (Last Revision: August 2017) Chronic/Permanent MTDD
--- NOTE | 2019-01-24 10:57 | P.GSCN ---
History of Present Illness Consult date: 01/24/19 Reason for Consult: Hiatal hernia, surgical recommendations Requesting physician: Joie Osuna History of present illness: This is an 83-year-old female patient who follows on an outpatient basis with Dr. Candido Chappell. She has a previous medical history of hypertension, COPD with home oxygen use at 2 L/m, deep pressure, pneumonia, recent diagnosis of new onset atrial fibrillation on Eliquis for anticoagulation, previous tobacco dependence, and cholangitis with ERCP and stent placement at [facility]. She is also debilitated, she lives with her son, and has been wheel-chair dependent for quite a while. She was recently hospitalized in November 2018 [facility] for cholangitis and sepsis and was transferred to [facility] where previous biliary stent was removed and replaced. Upon discharge from [facility] she went to a rehab facility and has been home from that facility for the previous 2 weeks. She presented to [facility] emergency room again yesterday after a visiting nurse was concerned regarding her heart rate and breathing. Per the patient she has been short of breath with exertion for the previous 6 months. She did also complain of lightheadedness, dizziness, and palpitations. She does complain of lower back pain with standing and attempting to walk which has been ongoing for quite some time. She denied any abdominal pain, nausea, or vomiting. Chest x-ray was completed in the emergency room demonstrating alveolar and interstitial edema. Chest CTA was also completed which ruled out pulmonary embolism, however she was noted to have pulmonary chronic interstitial fibrosis and a large hiatal hernia with intrathoracic stomach with possible volvulus of the stomach. EKG showed uncontrolled atrial fibrillation with heart rate in the low 100s. She was admitted for evaluation and treatment of acute exacerbation of COPD. Due to hiatal hernia consultation was placed to Dr. Norman from cardiothoracic surgery for treatment recommendations. Review of Systems Review of systems was completed and was negative except as noted. - Constitutional Reports weakness - Cardiovascular Reports dyspnea on exertion, Reports irregular heart beat, Reports lightheadedness - Musculoskeletal Reports low back pain Past Medical History Past Medical History: Atrial Fibrillation, Chest Pain / Angina, COPD, Hypertension, Osteoarthritis (OA), Pneumonia Additional Past Medical History / Comment(s): 01/14/15 Pt presented to [facility] ER via EMS with chest pain which was a tightness across chest. Pain began 1-2 hours before arrival to ER. Other HX: IBS, UTIs, chronic back pain, scoliosis, DDD, R sided pneumonia 2013. History of Any Multi-Drug Resistant Organisms: None Reported Past Surgical History: Cholecystectomy, Joint Replacement Additional Past Surgical History / Comment(s): ovarian cyst removed, right knee replacement, colonoscopy-normal. Past Anesthesia/Blood Transfusion Reactions: No Reported Reaction Additional Past Anesthesia/Blood Transfusion Reaction / Comm: Pt has never recieved blood. Past Psychological History: Anxiety, Depression Additional Psychological History / Comment(s): Pt resides with her son. She is independent. She uses a walker or cane only if walking a long distance. Smoking Status: Former smoker Past Alcohol Use History: None Reported Additional Past Alcohol Use History / Comment(s): Pt smoked less than a ppd for about 15-20 yrs. She quit smoking in 1987. Past Drug Use History: None Reported - Past Family History Father Family Medical History: Congestive Heart Failure (CHF), Myocardial Infarction (DC) Additional Family Medical History / Comment(s): Father of CHF at 68yrs of age. Mother Family Medical History: CVA/TIA Additional Family Medical History / Comment(s): Mother of a massive CVA Sister(s) Family Medical History: Diabetes Mellitus Medications and Allergies Home Medications Medication Instructions Recorded Confirmed Type Cholecalciferol [Vitamin D3 (25 1,000 unit PO DAILY 01/14/15 01/23/19 History Mcg = 1000 Iu)] Omeprazole 20 mg PO DAILY 01/14/15 01/23/19 History traMADol HCL [Ultram] 50 mg PO Q6HR PRN 09/05/16 01/23/19 History Sertraline [Zoloft] 50 mg PO DAILY 11/23/18 01/23/19 History Apixaban [Eliquis] 2.5 mg PO BID 01/23/19 01/23/19 History Metoprolol Tartrate [Lopressor] 25 mg PO BID 01/23/19 01/23/19 History Allergies Allergy/AdvReac Type Severity Reaction Status Date / Time Sulfa (Sulfonamide Allergy Rash/Hives Verified 01/23/19 14:12 Antibiotics) Surgical - Exam Vital Signs Pulse Resp Pulse Ox 94 18 95 01/23/19 14:12 01/23/19 14:12 09/17/19 14:12 - General well developed, well nourished, no distress, no pain - Eyes normal ocular movement - ENT decreased hearing - Neck no masses, no bruits, trachea midline - Respiratory Lungs sounds diminished bilaterally. Respirations even, nonlabored. Currently on 2 L nasal cannula with oxygen saturation 100%. - Cardiovascular S1, S2 present. Irregular rate and rhythm, atrial fibrillation on telemetry. Palpable peripheral pulses bilaterally. No edema present. No calf pain or tenderness noted. - Abdomen No organomegaly Abdomen: soft, non tender, bowel sounds - Genitourinary Deferred - Rectum Deferred - Integumentary no rash, no growths - Neurologic normal sensation - Musculoskeletal normal posture - Psychiatric oriented to time, oriented to person, oriented to place, speech is normal, memory intact Results - Labs 01/24/19 06:55 01/24/19 06:55 Abnormal Lab Results - Last 24 Hours (Table) 01/23/19 01/23/19 01/23/19 Range/Units 14:40 14:40 14:40 Hgb 11.0 L (11.4-16.0) gm/dL Hct (34.0-46.0) % RDW 17.2 H (11.5-15.5) % D-Dimer 1.57 H (<0.60) mg/L FEU Carbon Dioxide (22-30) mmol/L BUN 18 H (7-17) mg/dL Glucose 102 H (74-99) mg/dL POC Glucose (mg/dL) (75-99) mg/dL Magnesium 1.5 L (1.6-2.3) mg/dL Albumin 3.3 L (3.5-5.0) g/dL Ur Leukocyte Esterase (Negative) Urine RBC (0-5) /hpf Urine Mucus (None) /hpf 01/23/19 01/24/19 01/24/19 Range/Units 17:20 06:53 06:55 Hgb 10.4 L (11.4-16.0) gm/dL Hct 33.3 L (34.0-46.0) % RDW 17.2 H (11.5-15.5) % D-Dimer (<0.60) mg/L FEU Carbon Dioxide (22-30) mmol/L BUN (7-17) mg/dL Glucose (74-99) mg/dL POC Glucose (mg/dL) 162 H (75-99) mg/dL Magnesium (1.6-2.3) mg/dL Albumin (3.5-5.0) g/dL Ur Leukocyte Esterase Small H (Negative) Urine RBC 6 H (0-5) /hpf Urine Mucus Rare H (None) /hpf 01/24/19 Range/Units 06:55 Hgb (11.4-16.0) gm/dL Hct (34.0-46.0) % RDW (11.5-15.5) % D-Dimer (<0.60) mg/L FEU Carbon Dioxide 32 H (22-30) mmol/L BUN 22 H (7-17) mg/dL Glucose 149 H (74-99) mg/dL POC Glucose (mg/dL) (75-99) mg/dL Magnesium (1.6-2.3) mg/dL Albumin (3.5-5.0) g/dL Ur Leukocyte Esterase (Negative) Urine RBC (0-5) /hpf Urine Mucus (None) /hpf Diabetes panel 01/23/19 01/24/19 Range/Units 14:40 06:55 Sodium 137 139 (137-145) mmol/L Potassium 4.5 4.0 (3.5-5.1) mmol/L Chloride 100 99 (98-107) mmol/L Carbon Dioxide 29 32 H (22-30) mmol/L BUN 18 H 22 H (7-17) mg/dL Creatinine 0.78 0.97 (0.52-1.04) mg/dL Glucose 102 H 149 H (74-99) mg/dL Calcium 9.1 9.1 (8.4-10.2) mg/dL AST 30 (14-36) U/L ALT 12 (9-52) U/L Alkaline Phosphatase 86 (38-126) U/L Total Protein 6.6 (6.3-8.2) g/dL Albumin 3.3 L (3.5-5.0) g/dL Calcium panel 01/23/19 01/24/19 Range/Units 14:40 06:55 Calcium 9.1 9.1 (8.4-10.2) mg/dL Albumin 3.3 L (3.5-5.0) g/dL Pituitary panel 01/23/19 01/24/19 Range/Units 14:40 06:55 Sodium 137 139 (137-145) mmol/L Potassium 4.5 4.0 (3.5-5.1) mmol/L Chloride 100 99 (98-107) mmol/L Carbon Dioxide 29 32 H (22-30) mmol/L BUN 18 H 22 H (7-17) mg/dL Creatinine 0.78 0.97 (0.52-1.04) mg/dL Glucose 102 H 149 H (74-99) mg/dL Calcium 9.1 9.1 (8.4-10.2) mg/dL Adrenal panel 01/23/19 01/24/19 Range/Units 14:40 06:55 Sodium 137 139 (137-145) mmol/L Potassium 4.5 4.0 (3.5-5.1) mmol/L Chloride 100 99 (98-107) mmol/L Carbon Dioxide 29 32 H (22-30) mmol/L BUN 18 H 22 H (7-17) mg/dL Creatinine 0.78 0.97 (0.52-1.04) mg/dL Glucose 102 H 149 H (74-99) mg/dL Calcium 9.1 9.1 (8.4-10.2) mg/dL Total Bilirubin 1.2 (0.2-1.3) mg/dL AST 30 (14-36) U/L ALT 12 (9-52) U/L Alkaline Phosphatase 86 (38-126) U/L Total Protein 6.6 (6.3-8.2) g/dL Albumin 3.3 L (3.5-5.0) g/dL - Imaging Chest x-ray: report reviewed, image reviewed CT scan - chest: report reviewed, image reviewed EKG: image reviewed Assessment and Plan Assessment: 1. Large hiatal hernia 2. Acute on chronic COPD, home O2 dependent 3. History of hypertension 4. History of pneumonia 5. Atrial fibrillation on Eliquis for anticoagulation 6. Previous tobacco 7. Recent cholangitis with ERCP and stent replacement at [facility] Plan: The patient was seen and examined at the bedside. Chart/diagnostics were reviewed, including a previous CT of the chest that was completed in November [address] The case was discussed in detail with Dr. Norman by phone, and she will be seen and films reviewed by Dr. Chandler today. At this time the patient is in no acute distress, she is sitting up in bed and denies any pain. She is tolerating oral diet. She is debilitated and has other diagnoses which are more acute. No surgical intervention is warranted at this time. She may follow-up outpatient. Medical management of other comorbidities per primary care service. Dr. Osuna for this consult. Please call us with any further questions. Time with Patient: Greater than 30
[2019-01-24 11:58] LABS: Glucose,Whole Blood 163 mg/dL (75-99)
[2019-01-24] MEDS ORDERED: Magnesium Replacement Protocol 1 EACH MISC MISCELLANE PRN (12:17)
--- NOTE | 2019-01-24 12:28 | P.CRDCN ---
History of Present Illness History of present illness: This is a pleasant 83-year-old female past medical history significant for paroxysmal atrial fibrillation on longterm anticoagulation, COPD, hypertension and recent biliary stent replacement at November 2018. She denies history of coronary artery disease, dyslipidemia or diabetes mellitus in the past. We have been asked to see her in consultation for atrial fibrillation. She has a visiting nurse coming to the house and was noted to have hypoxia and elevated blood pressure. She was advised to come in to the ED. Upon arrival her heart rate was 120 and blood pressure 91/76. Telemetry tracings and EKG reveal underlying sinus mechanism with multi-focal atrial tachycardia. She states she was diagnosed with a-fib at [facility] and was placed on anti-coagulation. EKG reveals sinus mechanism with multifocal atrial tachycardia. Chest x-ray alveolar and interstitial edema/infiltrates of the bilateral lower lungs, chronic parenchymal changes noted. CTA chest reveals extensive pulmonary interstitial fibrosis, no evidence of pulmonary embolism. Erythematous thoracic aorta with no aneurysm noted. Laboratory data reviewed, WBC 5.7, hemoglobin 10.4, platelets 289, d-dimer 1.57, sodium 139, potassium 4.0, creatinine 0.97, magnesium 1.5, proBNP 1520, cardiac enzymes negative 1. Current daily cardiac medications include Eliquis 2.5 mg twice a day, Lopressor 25 mg twice a day. Most recent stress test performed in 2014 reveals preserved LV systolic function with ejection fraction 55-60%, apical septal LV wall motion hypokinesia. Most recent stress test performed in 2015 with a Lexiscan stress test was negative for reversible cardiac ischemia. At the time of my exam: CONSTITUTIONAL: Denies fever. Denies chills. EYES: Denies blurred vision. Denies vision changes. Denies eye pain. EARS, NOSE, MOUTH & THROAT: Denies headache. Denies sore throat. Denies ear pain. CARDIOVASCULAR: Denies chest pain. Complains of shortness of breath. Denies orthopnea. Denies PND. Denies palpitations. RESPIRATORY: Complains of cough. GASTROINTESTINAL: Denies abdominal pain. Denies diarrhea. Denies constipation. Denies nausea. Denies vomiting. MUSCULOSKELETAL: Denies myalgias. INTEGUMENTARY: Denies pruitis. Denies rash. NEUROLOGIC: Denies numbness. Denies tingling. Denies weakness. PSYCHIATRIC: Denies anxiety. Denies depression. ENDOCRINE: Denies fatigue. Denies weight change. Denies polydipsia. Denies polyurina. GENITOURINARY: Denies burning, hematuria or urgency with micturation. HEMATOLOGIC: Denies history of anemia. Denies bleeding. Blood pressure 121/66 heart rate 104, afebrile maintaining oxygen saturation on nasal cannula GENERAL: This is a 83-year-old female in no apparent distress at the time of my examination. HEENT: Head is atraumatic, normocephalic. Pupils are equal, round. Sclerae anicteric. Conjunctivae are clear. Mucous membranes of the mouth are moist. Neck is supple. There is no jugular venous distention. No carotid bruit is heard. LUNGS: Scattered rhonchi, faint rales bibasilar, no wheezes. No chest wall tenderness is noted on palpation or with deep breathing. HEART: Irregular rate and rhythm without murmurs, rubs or gallops. S1 and S2 heard. ABDOMEN: Soft, nontender. Bowel sounds are heard. No organomegaly noted. EXTREMITIES: No evidence of peripheral edema and no calf tenderness noted. VASCULAR: Radial and dorsalis pedis pulses palpated, no evidence of clubbing. NEUROLOGIC: Patient is awake, alert and oriented x3. ASSESSMENT Paroxysmal atrial fibrillation on long-term anticoagulation. Per the patient th is was diagnosed by Dr. Chappell and then reconfirmed at . EKG and telemetry tracings reviewed, multifocal atrial tachycardia with underlying sinus rhythm. Hypertension Pulmonary fibrosis Hypomagnesemia COPD, acute on chronic Bilateral pneumonia PLAN Thus far on review of EKG's present and past as well as telemetry tracings reveal multi-focal atrial tachycardia. No a-fib seen. There may be an underlying a-fib that was previously diagnosed however there has been no atrial fibril lation noted here. We have requested records from [facility] for further review. Replace magnesium per protocol. Obtain 2D echocardiogram and doppler study to assess cardiac structure and function. Further recommendations to follow. Thank you kindly for this consultation. Nurse Practitioner note has been reviewed, I agree with a documented findings and plan of care. Patient was seen and examined. Past Medical History Past Medical History: Atrial Fibrillation, Chest Pain / Angina, COPD, Hypertension, Osteoarthritis (OA), Pneumonia Additional Past Medical History / Comment(s): 01/14/15 Pt presented to [facility] ER via EMS with chest pain which was a tightness across chest. Pain began 1-2 hours before arrival to ER. Other HX: IBS, UTIs, chronic back pain, scoliosis, DDD, R sided pneumonia 2013. History of Any Multi-Drug Resistant Organisms: None Reported Past Surgical History: Cholecystectomy, Joint Replacement Additional Past Surgical History / Comment(s): ovarian cyst removed, right knee replacement, colonoscopy-normal. Past Anesthesia/Blood Transfusion Reactions: No Reported Reaction Additional Past Anesthesia/Blood Transfusion Reaction / Comment(s): Pt has never recieved blood. Past Psychological History: Anxiety, Depression Additional Psychological History / Comment(s): Pt resides with her son. She is independent. She uses a walker or cane only if walking a long distance. Smoking Status: Former smoker Past Alcohol Use History: None Reported Additional Past Alcohol Use History / Comment(s): Pt smoked less than a ppd for about 15-20 yrs. She quit smoking in 1987. Past Drug Use History: None Reported - Past Family History Sister(s) Family Medical History: Diabetes Mellitus Father Family Medical History: Congestive Heart Failure (CHF), Myocardial Infarction (SC) Additional Family Medical History / Comment(s): Father of CHF at 68yrs of age. Mother Family Medical History: CVA/TIA Additional Family Medical History / Comment(s): Mother of a massive CVA Medications and Allergies Home Medications Medication Instructions Recorded Confirmed Type Cholecalciferol [Vitamin D3 (25 1,000 unit PO DAILY 01/14/15 01/23/19 History Mcg = 1000 Iu)] Omeprazole 20 mg PO DAILY 01/14/15 01/23/19 History traMADol HCL [Ultram] 50 mg PO Q6HR PRN 09/05/16 01/23/19 History Sertraline [Zoloft] 50 mg PO DAILY 11/23/18 01/23/19 History Apixaban [Eliquis] 2.5 mg PO BID 01/23/19 01/23/19 History Metoprolol Tartrate [Lopressor] 25 mg PO BID 01/23/19 01/23/19 History Allergies Allergy/AdvReac Type Severity Reaction Status Date / Time Sulfa (Sulfonamide Allergy Rash/Hives Verified 01/23/19 14:12 Antibiotics) Physical Exam Vitals: Vital Signs Temp Pulse Pulse Resp BP BP Pulse Ox 01/24/19 09:27 104 H 01/24/19 09:17 100 01/24/19 09:16 100 01/24/19 09:06 100 01/24/19 08:35 66 15 01/24/19 07:00 97.6 F 89 16 121/66 100 01/24/19 03:28 14 01/24/19 01:09 98.0 F 66 18 107/69 97 01/23/19 23:04 80 15 01/23/19 21:43 98.7 F 80 15 116/51 97 01/23/19 21:24 77 16 100/53 96 01/23/19 19:05 112 H 20 111/67 98 01/23/19 18:30 138 H 32 H 107/65 98 01/23/19 18:00 125 H 29 H 128/61 100 01/23/19 17:30 123 H 16 104/69 98 01/23/19 17:01 122 H 20 107/61 98 01/23/19 16:30 99 22 109/55 97 01/23/19 16:06 112 H 01/23/19 16:00 93 18 111/53 99 01/23/19 15:50 116 H 20 111/53 96 01/23/19 15:48 116 H 01/23/19 15:00 120 H 12 91/76 98 01/23/19 14:36 97.0 F L 120 H 16 91/76 86 L 01/23/19 14:15 22 01/23/19 14:12 94 18 95 Intake and Output 01/23/19 01/24/19 01/24/19 22:59 06:59 14:59 Intake Total 100 Balance 100 Intake: Intake, IV Titration 100 Amount Piperacillin-Tazobactam 3 100 .375 gm In Sodium Chloride 0.9% 100 ml @ 25 mls/hr IVPB Q8HR [facility] Rx# :[id number] Other: Voiding Method Toilet Toilet Bedpan Bedpan # Voids 1 2 Results 01/24/19 06:55 01/24/19 06:55 Cardiac Enzymes 01/23/19 01/23/19 Range/Units 14:40 14:40 AST 30 (14-36) U/L Troponin I <0.012 (0.000-0.034) ng/mL Coagulation 01/23/19 Range/Units 14:40 PT 10.8 (9.0-12.0) sec APTT 27.2 (22.0-30.0) sec CBC 01/23/19 01/24/19 Range/Units 14:40 06:55 WBC 9.8 5.7 (3.8-10.6) k/uL RBC 4.26 4.12 (3.80-5.40) m/uL Hgb 11.0 L 10.4 L (11.4-16.0) gm/dL Hct 35.0 33.3 L (34.0-46.0) % Plt Count 319 289 (150-450) k/uL Comprehensive Metabolic Panel 01/23/19 01/24/19 Range/Units 14:40 06:55 Sodium 137 139 (137-145) mmol/L Potassium 4.5 4.0 (3.5-5.1) mmol/L Chloride 100 99 (98-107) mmol/L Carbon Dioxide 29 32 H (22-30) mmol/L BUN 18 H 22 H (7-17) mg/dL Creatinine 0.78 0.97 (0.52-1.04) mg/dL Glucose 102 H 149 H (74-99) mg/dL Calcium 9.1 9.1 (8.4-10.2) mg/dL AST 30 (14-36) U/L ALT 12 (9-52) U/L Alkaline Phosphatase 86 (38-126) U/L Total Protein 6.6 (6.3-8.2) g/dL Albumin 3.3 L (3.5-5.0) g/dL Current Medications Generic Name Dose Route Start Last Admin Trade Name Freq PRN Reason Stop Dose Admin Albuterol/Ipratropium 3 ml 01/23/19 18:52 Duoneb 0.5 Mg-3 Mg/3 Ml Soln INHALATION RT-Q4H PRN Shortness Of Breath Or Wheezing Albuterol/Ipratropium 3 ml 01/24/19 08:00 01/24/19 09:06 Duoneb 0.5 Mg-3 Mg/3 Ml Soln INHALATION 3 ml RT-QID ALLIE Administration Apixaban 2.5 mg 01/23/19 21:00 01/24/19 09:00 Eliquis PO 2.5 mg BID ALLIE Administration Budesonide 1 mg 01/24/19 08:00 01/24/19 09:06 Pulmicort INHALATION 1 mg RT-BID ALLIE Administration Cholecalciferol 1,000 unit 01/24/19 09:00 01/24/19 09:01 Vitamin D3 (25 Mcg = 1000 Iu) PO 1,000 unit DAILY ALLIE Administration Formoterol Fumarate 20 mcg 01/24/19 08:00 01/24/19 09:06 Perforomist INHALATION 20 mcg RT-BID ALLIE Administration Piperacillin Sod/Tazobactam 100 mls @ 25 mls/hr 01/24/19 00:00 01/24/19 09:00 Sod 3.375 gm/ Sodium Chloride IVPB 25 mls/hr Q8HR ALLIE Administration Methylprednisolone Sodium Succinate 60 mg 01/24/19 00:00 01/24/19 05:08 Solu-Medrol IV 60 mg Q6HR ALLIE Administration Metoprolol Tartrate 25 mg 01/23/19 21:00 01/24/19 09:01 Lopressor PO 25 mg BID [facility] Administration Pantoprazole Sodium 40 mg 01/23/19 20:30 01/24/19 09:00 Protonix IVP 40 mg DAILY ALLIE Administration Sertraline HCl 50 mg 01/24/19 09:00 01/24/19 09:01 Zoloft PO 50 mg DAILY ALLIE Administration Tramadol HCl 50 mg 01/23/19 20:27 Ultram PO Q6HR PRN Pain Intake and Output 01/23/19 01/24/19 01/24/19 22:59 06:59 14:59 Intake Total 100 Balance 100 Intake: Intake, IV Titration 100 Amount Piperacillin-Tazobactam 3 100 .375 gm In Sodium Chloride 0.9% 100 ml @ 25 mls/hr IVPB Q8HR [facility] Rx# :[id number] Other: Voiding Method Toilet Toilet Bedpan Bedpan # Voids 1 2 01/24/19 06:55 01/24/19 06:55
--- NOTE | 2019-01-24 12:52 | ECHOF ---
Referral Reason:afib MEASUREMENTS -------- HEIGHT: 157.5 cm WEIGHT: 58.1 kg BP: RVIDd: 2.4 cm (< 3.3) IVSd: 1.7 cm (0.6 - 1.1) LVIDd: 2.6 cm (3.9 - 5.3) LVPWd: 1.5 cm (0.6 - 1.1) IVSs: 2.0 cm LVIDs: 1.7 cm LVPWs: 1.7 cm LAESV Index (A-L): 45.05 ml/m Ao Diam: 3.1 cm (2.0 - 3.7) AV Cusp: 1.8 cm (1.5 - 2.6) EPSS: 0.9 cm MV E Jayden: 0.74 m/s MV DecT: 241 ms MV A Jayden: 0.90 m/s MV E/A Ratio: 0.83 RAP: 5.00 mmHg RVSP: 43.39 mmHg MV EF SLOPE: 31.20 mm/s (70 - 150) MV EXCURSION: 1.05 cm (> 18.000) FINDINGS -------- Sinus rhythm with extra systolic beats. This was a technically adequate study. The left ventricular size is normal. There is moderate concentric left ventricular hypertrophy. O verall left ventricular systolic function is low-normal with, an EF between 50 - 55 %. The diastoli c filling pattern is normal for the age of the patient. The right ventricle is normal in size. Left atrium is severely dilated by volume. The right atrial size is normal. Interatrial and interventricular septum intact. The aortic valve was not well visualized. There is no evidence of aortic regurgitation. There is no evidence of aortic stenosis. The mitral valve leaflets are mildly thickened. [id number] mitral regurgitation is present. Mild tricuspid regurgitation present. There is mild pulmonary hypertension. The right ventricular systolic pressure, as measured by Doppler, is 43.39mmHg. The pulmonic valve was not well visualized. There is no pulmonic regurgitation present. The aortic root size is normal. IVC not well visualized There is no pericardial effusion. CONCLUSIONS -------- 1. Sinus rhythm with extra systolic beats. 2. The left ventricular size is normal. 3. There is moderate concentric left ventricular hypertrophy. 4. Overall left ventricular systolic function is low-normal with, an EF between 50 - 55 %. 5. The diastolic filling pattern is normal for the age of the patient. 6. Left atrium is severely dilated by volume. 7. The aortic valve was not well visualized. 8. There is no evidence of aortic regurgitation. 9. There is no evidence of aortic stenosis. 10. [id number] mitral regurgitation is present. 11. Mild tricuspid regurgitation present. 12. There is mild pulmonary hypertension. 13. There is no pulmonic regurgitation present. 14. The aortic root size is normal. 15. IVC not well visualized 16. There is no pericardial effusion. VP INFORMATICS: Bhakti Fallon RDCS
--- NOTE | 2019-01-24 16:37 | XR ---
EXAMINATION TYPE: XR chest 1V portable DATE OF EXAM: 01/24/2019 COMPARISON: Yesterday HISTORY: Short of breath TECHNIQUE: Single frontal view of the chest is obtained. FINDINGS: There is extensive pulmonary interstitial density. There is poor inspiration and elevated right diaphragm. Heart appears borderline enlarged. Pulmonary vascularity is difficult to evaluate be cause of extensive interstitial lung disease. There are chest leads. There is no definite pleural eff usion. IMPRESSION: Pulmonary interstitial fibrosis. Mild heart failure not entirely excluded. No significan t change compared to yesterday.
[2019-01-24 16:46] LABS: Glucose,Whole Blood 123 mg/dL (75-99)
[2019-01-24] MEDS: FUROSEMIDE 10 MG/ML 4 ML VIAL IV SCH (17:10)
[2019-01-24] MEDS: MAGNESIUM SULFATE-D5W PMX 1 GM in DEXTROSE/WATER 1 100ML.BAG IVPB SCH ×2 (17:10→18:59)
--- NOTE | 2019-01-24 18:37 | PN ---
PROGRESS NOTE DATE OF SERVICE: 01/24/2019 This 83-year-old woman who was admitted with shortness of breath with COPD, acute exacerbation, with acute bilateral bronchopneumonia, possibly hospital-acquired, is being closely monitored at this time. The patient is still short of breath. D-dimer was elevated, but there was no evidence of pulmonary embolism. A 2D echo with Doppler was done which showed an ejection fraction about 50% to 55% and severe dilation of the left atrium, mild to moderate mitral regurgitation. The patient is being closely monitored at this time. Past medical history reviewed. Cardiothoracic Surgery has seen the patient and recommended continuing with the current medications; no surgical intervention currently. REVIEW OF SYSTEMS: CARDIOVASCULAR SYSTEM: No angina, palpitations. RESPIRATORY SYSTEM: As mentioned earlier. GI: As mentioned earlier. : No dysuria or retention. NERVOUS SYSTEM: No numbness, weakness. CURRENT MEDICATIONS: Reviewed. They include: 1. DuoNeb q.i.d. and p.r.n. 2. Augmentin 500 mg p.o. b.i.d. 3. Eliquis 2.5 mg b.i.d. 4. Pulmicort 1 mg b.i.d. 5. Vitamin D3 1000 daily. 6. Perforomist 20 mg b.i.d. 7. Lopressor 25 mg b.i.d. 8. Magnesium protocol. 9. Protonix 40 mg daily. 10.Zoloft 50 mg daily. 11.Ultram 50 mg q.6 p.r.n. PHYSICAL EXAMINATION: Patient is alert, oriented x3. Pulse 62, blood pressure 106/67, respirations 16, temperature 98.7, pulse ox 79% on room air. HEENT: Conjunctivae normal. Oral mucosa moist. NECK: No jugular venous distention. No carotid bruit. No lymph node enlargement. CARDIOVASCULAR SYSTEM: S1, S2 muffled. RESPIRATORY SYSTEM: Breath sounds diminished at the bases. A few scattered rhonchi and crackles. ABDOMEN: Soft, non-tender. No mass palpable. LEGS: No edema. No swelling. NERVOUS SYSTEM: Mild diffuse weakness. LYMPHATICS: No lymph node palpable in neck, axillae or groin. SKIN: No ulcer, rash, bleeding. LABS: Labs at this time show WBC 5.6, hemoglobin 10.4. Sodium 139, potassium 3.9. ASSESSMENT: 1. Shortness of breath; possibly chronic obstructive pulmonary disease, acute exacerbation, as well as acute bilateral bronchopneumonia, possibly hospital- acquired. 2. Rule out congestive heart failure, acute exacerbation, with acute on chronic diastolic dysfunction. 3. Paroxysmal atrial fibrillation. 4. Anemia. 5. Elevated D-dimer with no evidence of pulmonary embolism. 6. Large hiatal hernia with intrathoracic stomach with suspicious volvulus, on medical treatment per Cardiothoracic Surgery. 7. Hypomagnesemia. 8. History of recent ERCP and stent replacement in [facility]. 9. Atrial fibrillation with fast ventricular rate. 10.History of chronic obstructive pulmonary disease. 11.Hypertension. 12.History of degenerative joint disease. 13.History of pneumonia. 14.History of multiple urinary tract infections. 15.History of back pain and degenerative joint disease. 16.History of cholecystectomy. 17.History of anxiety, depression. 18.Remote history of nicotine dependence. RECOMMENDATIONS AND DISCUSSION: In this 83-year-old woman who presented with multiple complex medical issues, we will monitor the patient closely, continue the current management, continue with symptomatic treatment. I would recommend adding diuretics to the current regimen. Will check magnesium. Also recommend cardiology consultation for re-evaluation of the CHF and atrial fibrillation. Otherwise, we will continue to monitor. See orders for further details. Guarded prognosis. Further recommendations to follow. Continue the rest of the medications. Overall prognosis guarded. PT/OT evaluation. DAMEON / KRISTI: [id number] /
[2019-01-24 20:31] LABS: Glucose,Whole Blood 234 mg/dL (75-99)
[2019-01-24] MEDS: INSULIN ASPART (NovoLOG) 100 UNIT/ML VIAL SQ SCH (20:33)
--- NOTE | 2019-01-24 20:49 | CONS ---
CONSULTATION PULMONARY/CRITICAL CARE CONSULTATION: This is an 83-year-old female who looks much older even than her stated age of 83. She apparently presented to the emergency room via wheelchair with complaints of increasing shortness of breath. She has had shortness of breath for a number of months now, and apparently it has gotten much worse. She states that her shortness of breath occurs primarily when she exerts herself. She is not particularly active, though. She also has a bit of a dry non-productive cough. She denied any chest pain or pressure. She denied any fever, chills or phlegm production. The patient apparently has a vague diagnosis of COPD. She did smoke in the past. I do not believe she has ever seen a lung doctor. Her primary care physician, I believe, is Dr. Candido Chappell. She denies any headache. There is no nausea, vomiting or diarrhea. No genitourinary complaints. No leg swelling or calf tenderness. The patient's chest x-ray and CT scan in my opinion show primarily interstitial lung disease/pulmonary fibrosis. There may be a component of COPD as well. She did smoke for about 30 years many years back. She has never seen a lung doctor or had pulmonary function testing. MEDICATIONS: Currently her medications include: 1. Vitamin D3. 2. Omeprazole. 3. Ultram. 4. Zoloft. 5. Eliquis. 6. Lopressor. ALLERGIES: ALLERGIES include SULFA ANTIBIOTICS. MEDICAL HISTORY: Medical history includes: 1. Atrial fibrillation. 2. Occasional angina. 3. Possible COPD. 4. Hypertension. 5. DJD. 6. Pneumonia. 7. Probable interstitial lung disease/pulmonary fibrosis. 8. Irritable bowel syndrome. 9. Chronic back pain. 10.UTIs. 11.Scoliosis. 12.Degenerative disc disease. 13.A prior episode of pneumonia back in 2013. SURGICAL HISTORY: Surgical history includes: 1. Cholecystectomy. 2. Joint replacement. 3. Ovarian cyst removal. 4. Right knee replacement. 5. Colonoscopy. SOCIAL HISTORY: Positive for previous tobacco use. She smoked for about 30 years. She started at a young age of about 12 and quit smoking when she was about 42. She has not smoked since about the age of 42 or 43. She has smoked much less than a pack a day. She denies any alcohol or illicit drug use. FAMILY HISTORY: Father with congestive heart failure and myocardial infarction. Mother had a stroke. REVIEW OF SYSTEMS: CONSTITUTIONAL: Negative. NEUROLOGIC: Negative. HEENT: Negative. CARDIOVASCULAR: Negative. PULMONARY: Shortness of breath and dry cough. GI: Negative. : Negative. RHEUMATOLOGIC: Negative. IMMUNOLOGIC: Negative. ENDOCRINOLOGIC: Negative. DERMATOLOGIC: Negative. PHYSICAL EXAMINATION: VITAL SIGNS: Current vital signs are reviewed. Temperature is 97, heart rate 62, respiratory rate 16, blood pressure 106/67, mean 80, and saturations on nasal cannula are in the mid to high 80s. GENERAL: Appears in no acute distress. No conversational dyspnea. No audible wheezing. No use of accessory muscles. HEENT: HEENT examination is grossly unremarkable. Mucous membranes are moist. No oral lesions. NECK: Supple. Full range of motion. No adenopathy or thyromegaly. Neck veins are flat. CARDIOVASCULAR: Cardiovascular examination reveals regular rhythm and rate. Heart rate in the mid 60s. S1, S2 normal. No distinct murmur noted. Heart sounds are distant. LUNGS: Lungs reveal some bibasilar crackles. She is restricted in her breathing. No rhonchi or wheezes. Breath sounds are equal bilaterally. ABDOMEN: Soft. Bowel sounds are heard. EXTREMITIES: Intact. No cyanosis, clubbing or edema. SKIN: Without rash. NEUROLOGIC: Neurologic examination is brief but nonfocal. IMAGING: Her chest x-ray shows, in my opinion, diffuse interstitial changes which could be consistent with interstitial fibrosis and/or interstitial edema. A CT angiogram was done. It showed no evidence of pulmonary embolism. There was extensive pulmonary interstitial fibrosis. LAB DATA: Lab data include a white count of 5.7, hemoglobin 10.4, hematocrit 33.3, platelet count 389,000. Sodium, potassium, chloride normal. CO2 32. Anion gap 8. BUN and creatinine were 22 and 0.97. Urine is essentially negative. N-terminal proBNP 1520. Troponin less than 0.012. MEDICATIONS: Medications are reviewed. She is on: 1. Eliquis. 2. Pulmicort. 3. Vitamin D3. 4. Perforomist. 5. DuoNeb. 6. Magnesium replacement. 7. Solu-Medrol. 8. Metoprolol. 9. Protonix. 10.Zosyn. 11.Zoloft. 12.Tramadol. ASSESSMENT: 1. Shortness of breath, likely multifactorial, but predominantly caused by interstitial lung disease/pulmonary fibrosis which is likely quite severe, as well as possible underlying chronic obstructive pulmonary disease from 30 years of tobacco use. I believe the COPD is a minor component as it relates to her chronic and progressive shortness of breath. 2. No evidence of pulmonary embolism on CT angiogram. 3. History of atrial fibrillation. 4. History of angina pectoris. 5. History of hypertension. 6. Degenerative joint disease. 7. Prior history of pneumonia. 8. Degenerative disc disease. 9. Chronic back pain. 10.Irritable bowel syndrome. 11.History of urinary tract infections. PLAN: The patient's medications are reviewed. The corticosteroid can be discontinued. Additional recommendations and suggestions are forthcoming. I believe, because of the patient's age, a lung biopsy would be unnecessary and too extreme. In addition, corticosteroids have not been shown to be beneficial in patients with idiopathic pulmonary fibrosis or interstitial lung disease in general. The updrafts are okay. Do not feel that she needs to use them all the time. There is probably a component of COPD. The only way to sort that out would be to do pulmonary function testing in our office. Additional recommendations and suggestions are forthcoming. I gave her my card. She can feel free to see me in the office after discharge. Additional recommendations and suggestions are forthcoming. Prognosis is guarded. MMODL / IJN: [id number] /
[2019-01-24] MEDS: AMOXIC-POT CLAV 500-125 MG 1 EACH TAB PO SCH (21:41)
[2019-01-24] MEDS ORDERED: METOPROLOL TARTRATE 25 MG TAB PO STA (23:22)
[2019-01-25 07:05] LABS: Glucose,Whole Blood 106 mg/dL (75-99)
[2019-01-25] MEDS: INSULIN ASPART (NovoLOG) 100 UNIT/ML VIAL SQ SCH ×4 (07:25→20:46)
[2019-01-25] MEDS: CHOLECALCIFEROL 1,000 UNIT TAB PO SCH (07:41)
[2019-01-25] MEDS: METOPROLOL TARTRATE 25 MG TAB PO SCH ×2 (07:41→20:47)
[2019-01-25] MEDS: AMOXIC-POT CLAV 500-125 MG 1 EACH TAB PO SCH ×2 (07:41→20:55)
[2019-01-25] MEDS: FUROSEMIDE 10 MG/ML 4 ML VIAL IV SCH (07:41)
[2019-01-25] MEDS: SERTRALINE 50 MG TAB PO SCH (07:41)
[2019-01-25] MEDS: PANTOPRAZOLE 40 MG TABLET PO SCH (07:42)
[2019-01-25] MEDS: APIXABAN 2.5 MG TABLET PO SCH ×2 (07:42→20:47)
[2019-01-25 08:22] LABS: Anisocytosis Slight; Basophils # (A) 0.1 k/uL (0-0.2); Basophils % (A) 0 %; Eosinophils % (A) 0 %; HCT 33.9 % (34.0-46.0); Hypochromasia Moderate; Lymphocytes # (A) 1.4 k/uL (1.0-4.8); Lymphocytes % (A) 10 %; MCH 26.1 pg (25.0-35.0); MCHC 32.3 g/dL (31.0-37.0); MCV 80.7 fL (80.0-100.0); Mean Platelet Volume 7.6; Microcytosis Slight; Monocytes # (A) 0.8 k/uL (0-1.0); Monocytes % (A) 6 %; Neutrophils # (A) 11.3 k/uL (1.3-7.7); Neutrophils % (A) 83 %; Platelet Count 333 k/uL (150-450); RDW 17.6 % (11.5-15.5); WBC 13.6 k/uL (3.8-10.6)
[2019-01-25 08:25] LABS: Calcium 8.8 mg/dL (8.4-10.2); Magnesium 2.1 mg/dL (1.6-2.3); Potassium 3.2 mmol/L (3.5-5.1)
[2019-01-25] MEDS: BUDESONIDE 1 MG/2 ML NEBU INHALATION SCH ×2 (09:26→20:09)
[2019-01-25] MEDS: IPRATROPIUM-ALBUTEROL 3 ML NEB INHALATION SCH ×4 (09:26→20:09)
[2019-01-25] MEDS: FORMOTEROL FUMARATE 20 MCG/2 ML NEBU INHALATION SCH ×2 (09:26→20:09)
[2019-01-25 11:36] LABS: Glucose,Whole Blood 96 mg/dL (75-99)
--- NOTE | 2019-01-25 13:53 | P.PN ---
Subjective Progress Note Date: 01/25/19 Principal diagnosis: Shortness of breath multifactorial, related to interstitial lung disease/pulmonary fibrosis and COPD On 01/25/2019 patient seen in follow-up on medical surgical floor. She is calm and comfortable, in no acute distress, she remains on supplemental oxygen, cu rrently at 3 L. Denies any worsening dyspnea, she is afebrile, hemodynamically stable, noncompressive chest pain, patient has been ambulating in the room, tolerating activity fairly well, today's chest x-ray has been reviewed showing no significant change compared to yesterday. No acute events overnight, today's labs have been reviewed, showing white blood cell count of 13.6, hemoglobin of 11.0, serum sodium of 139, potassium is 3.2, chloride is 95, CO2 is 37, BUN of 25 creatinine is 1.08. Objective - Vital Signs Vital signs: Vital Signs Temp 98.8 F 01/25/19 07:00 Pulse 70 01/25/19 13:32 Resp 16 01/25/19 08:00 BP 140/58 01/25/19 07:00 Pulse Ox 97 01/25/19 07:00 Intake & Output 01/24/19 01/25/19 01/25/19 18:59 06:59 18:59 Intake Total 120 1280 Balance 120 1280 Intake: Intake, IV Titration 200 Amount Magnesium Sulfate-D5w Pmx 200 1 gm In Dextrose/Water 1 100ml.bag @ 100 mls/hr IVPB Q1H [facility], [facility]–1983 Rx#: [id number] Oral 120 1080 Other: Voiding Method Toilet Toilet Bedpan Bedpan # Voids 1 1 3 # Bowel Movements 1 1 - Exam GENERAL EXAM: Alert, oriented 3, 83-year-old female, on 3 L of oxygen the pulse ox of 97% comfortable in no apparent distress. HEAD: Normocephalic/atraumatic. EYES: Normal reaction of pupils, equal size. Conjunctiva pink, sclera white. NOSE: Clear with pink turbinates. THROAT: No erythema or exudates. NECK: No masses, no JVD, no thyroid enlargement, no adenopathy. CHEST: No chest wall deformity. Symmetrical expansion. LUNGS: Equal air entry with bibasilar crackles, but no wheeze, no rhonchi or dullness. CVS: Regular rate and rhythm, normal S1 and S2, no gallops, no murmurs, no rubs ABDOMEN: Soft, nontender. No hepatosplenomegaly, normal bowel sounds, no guarding or rigidity. EXTREMITIES: No clubbing, no edema, no cyanosis, 2+ pulses and upper and lower extremities. MUSCULOSKELETAL: Muscle strength and tone normal. SPINE: No scoliosis or deformity SKIN: No rashes CENTRAL NERVOUS SYSTEM: Alert and oriented -3. No focal deficits, tone is normal in all 4 extremities. PSYCHIATRIC: Alert and oriented -3. Appropriate affect. Intact judgment and insight. - Labs CBC & Chem 7: 01/25/19 07:13 01/25/19 07:13 Labs: Abnormal Lab Results - Last 24 Hours (Table) 01/24/19 01/24/19 01/25/19 Range/Units 16:41 20:19 07:03 WBC (3.8-10.6) k/uL Hgb (11.4-16.0) gm/dL Hct (34.0-46.0) % RDW (11.5-15.5) % Neutrophils # (1.3-7.7) k/uL Potassium (3.5-5.1) mmol/L Chloride (98-107) mmol/L Carbon Dioxide (22-30) mmol/L BUN (7-17) mg/dL Creatinine (0.52-1.04) mg/dL POC Glucose (mg/dL) 123 H 234 H 106 H (75-99) mg/dL 01/25/19 01/25/19 Range/Units 07:13 07:13 WBC 13.6 H (3.8-10.6) k/uL Hgb 11.0 L (11.4-16.0) gm/dL Hct 33.9 L (34.0-46.0) % RDW 17.6 H (11.5-15.5) % Neutrophils # 11.3 H (1.3-7.7) k/uL Potassium 3.2 L (3.5-5.1) mmol/L Chloride 95 L (98-107) mmol/L Carbon Dioxide 37 H (22-30) mmol/L BUN 25 H (7-17) mg/dL Creatinine 1.08 H (0.52-1.04) mg/dL POC Glucose (mg/dL) (75-99) mg/dL Microbiology - Last 24 Hours (Table) 01/23/19 15:48 Blood Culture - Preliminary Blood No Growth after 24 hours Assessment and Plan Plan: Assessment: #1. Shortness of breath, multifactorial, predominantly related to interstitial lung disease/pulmonary fibrosis, which is likely quite severe, as well as possibility of underlying chronic obstructive pulmonary disease from 30 years of tobacco use. #2. Mildly elevated d-dimer, but his CT chest without evidence of pulmonary embolism #3. History of atrial fibrillation #4. History of angina pectoris #5. History of hypertension #6. Degenerative joint disease #7. Prior history of pneumonia #8. Chronic back pain #9. Irritable bowel syndrome #10. History of UTIs Plan: Continue current medical treatment, breathing treatments, and antibiotics, patient is currently pretty comfortable, in no acute distress, she has been up to the bedside commode, tolerating activity fairly well, no acute events overnight. Breathing is improving, will need outpatient follow-up with Dr. Dr. Poon in the office I performed a history & physical examination of the patient and discussed their management with my nurse practitioner, Marisela Yee. I reviewed the nurse practitioner's note and agree with the documented findings and plan of care. Lung sounds are positive for a few scattered rhonchi. The findings and the impression was discussed with the patient. I attest to the documentation by the nurse practitioner. Time with Patient: Less than 30
--- NOTE | 2019-01-25 14:01 | P.PN ---
Subjective This is a pleasant 83-year-old female past medical history significant for paroxysmal atrial fibrillation on skilled nursing anticoagulation, COPD, hypertension and recent biliary stent replacement at [facility] November 2018. She denies history of coronary artery disease, dyslipidemia or diabetes mellitus in the past. We have been asked to see her in consultation for atrial fibrillation. She is seen and examined sitting up in the chair in no acute distress. She continues to have some mild shortness of breath that is improving. She denies chest pain, palpitations or dizziness. No PND or orthopnea. Laboratory data reviewed, WBC 13.6, hgb 11.0, plt 333, sodium 139, potassium 3.2, creatinine 1.08 and magnesium 2.1. Blood pressure 140/58 heart rate 76 afebrile and maintaining oxygen saturation nasal cannula. Repeat chest xray reveals pulmonary fibrosis. Echocardiogram obtained preserved LV systolic function with ejection fraction 50-55%, severely dilated left atrium, mild to moderate mitral regurgitation, mild tricuspid regurgitation and mild pulmonary hypertension with an RVSP of 43 mmHg. Documents obtained from reviewed, unfortunately they did not send an EKG. We would like to see this specifically. Thus far there has been no documented atrial fibrillation only mult-focal atrial tachycardia. It is quite possible this has been misinterpreted in the past and a-fib diagnosis placed. GENERAL: This is a 83-year-old female in no apparent distress at the time of my examination. HEENT: Head is atraumatic, normocephalic. Pupils are equal, round. Sclerae anicteric. Conjunctivae are clear. Mucous membranes of the mouth are moist. Neck is supple. There is no jugular venous distention. No carotid bruit is heard. LUNGS: Scattered rhonchi, no rales or wheezes. No chest wall tenderness is noted on palpation or with deep breathing. HEART: Irregular rate and rhythm without murmurs, rubs or gallops. S1 and S2 heard. EXTREMITIES: No evidence of peripheral edema and no calf tenderness noted. ASSESSMENT Multi-focal atrial tachycardia. No documented a-fib Hypertension Pulmonary fibrosis Hypomagnesemia COPD, acute on chronic Bilateral pneumonia PLAN Thus far there has been no documented atrial fibrillation only mult-focal atrial tachycardia. It is quite possible this has been misinterpreted in the past and a-fib diagnosis placed. We will again request an EKG from for review. If this diagnosis cannot be confirmed there is no need for skilled nursing anti- coagulation. Nurse Practitioner note has been reviewed, I agree with a documented findings and plan of care. Patient was seen and examined. Objective - Vital Signs Vital signs: Vital Signs Temp 98.8 F 01/25/19 07:00 Pulse 70 01/25/19 13:32 Resp 16 01/25/19 08:00 BP 140/58 01/25/19 07:00 Pulse Ox 97 01/25/19 07:00 Intake & Output 01/24/19 01/25/19 01/25/19 18:59 06:59 18:59 Intake Total 120 1280 Balance 120 1280 Intake: Intake, IV Titration 200 Amount Magnesium Sulfate-D5w Pmx 200 1 gm In Dextrose/Water 1 100ml.bag @ 100 mls/hr IVPB Q1H [facility] Rx#: [id number] Oral 120 1080 Other: Voiding Method Toilet Toilet Bedpan Bedpan # Voids 1 1 3 # Bowel Movements 1 1 - Labs CBC & Chem 7: 01/25/19 07:13 01/25/19 07:13 Labs: Abnormal Lab Results - Last 24 Hours (Table) 01/24/19 01/24/19 01/25/19 Range/Units 16:41 20:19 07:03 WBC (3.8-10.6) k/uL Hgb (11.4-16.0) gm/dL Hct (34.0-46.0) % RDW (11.5-15.5) % Neutrophils # (1.3-7.7) k/uL Potassium (3.5-5.1) mmol/L Chloride (98-107) mmol/L Carbon Dioxide (22-30) mmol/L BUN (7-17) mg/dL Creatinine (0.52-1.04) mg/dL POC Glucose (mg/dL) 123 H 234 H 106 H (75-99) mg/dL 01/25/19 01/25/19 Range/Units 07:13 07:13 WBC 13.6 H (3.8-10.6) k/uL Hgb 11.0 L (11.4-16.0) gm/dL Hct 33.9 L (34.0-46.0) % RDW 17.6 H (11.5-15.5) % Neutrophils # 11.3 H (1.3-7.7) k/uL Potassium 3.2 L (3.5-5.1) mmol/L Chloride 95 L (98-107) mmol/L Carbon Dioxide 37 H (22-30) mmol/L BUN 25 H (7-17) mg/dL Creatinine 1.08 H (0.52-1.04) mg/dL POC Glucose (mg/dL) (75-99) mg/dL Microbiology - Last 24 Hours (Table) 01/23/19 15:48 Blood Culture - Preliminary Blood No Growth after 24 hours
--- NOTE | 2019-01-25 16:20 | PN ---
PROGRESS NOTE DATE OF SERVICE: 01/25/2019 This 83-year-old woman who was admitted with shortness of breath is being evaluated for possible CHF, also. The patient is being treated with multiple medications. Multiple consultants are following the patient closely. The patient also has a significant hiatal hernia. No surgical treatment is being planned at this time. A chest x-ray showed still significant lesions at this time. Multiple consultants are following the patient closely, including Pulmonary and Cardiology. Past medical history reviewed. CT angio showed no evidence of pulmonary embolism. REVIEW OF SYSTEMS: CARDIOVASCULAR SYSTEM: No angina, palpitations. RESPIRATORY SYSTEM: As mentioned earlier. GI: No nausea, vomiting. : No dysuria or retention. NERVOUS SYSTEM: No numbness, weakness. CURRENT MEDICATIONS: 1. DuoNeb q.i.d. and p.r.n. 2. Augmentin 500 mg b.i.d. 3. Eliquis 2.5 mg b.i.d. 4. Pulmicort 1 mg b.i.d. 5. Vitamin D3 1000 daily. 6. Perforomist 20 mg b.i.d. 7. Lasix 40 mg IV daily. 8. NovoLog. 9. Lopressor 25 mg b.i.d. 10.Magnesium protocols. 11.Protonix. 12.Zoloft. 13.Ultram. PHYSICAL EXAMINATION: Patient is alert and oriented x3. Pulse 59, blood pressure 103/66, respirations 16, temperature 98.6, pulse ox 93% on room air. HEENT: Conjunctivae normal. NECK: No jugular venous distention. CARDIOVASCULAR SYSTEM: S1, S2 muffled. RESPIRATORY SYSTEM: Breath sounds diminished at the bases. A few scattered rhonchi and crackles. ABDOMEN: Soft, non-tender. No mass palpable. LEGS: No edema. No swelling. NERVOUS SYSTEM: No focal deficit. LABS: WBC 13.6, hemoglobin 11. Sodium 139, potassium 3.2. ASSESSMENT: 1. Shortness of breath; possible chronic obstructive pulmonary disease, acute exacerbation, as well as bilateral bronchopneumonia, possibly hospital-acquired. 2. Congestive heart failure, acute exacerbation, possibly acute on chronic diastolic dysfunction. 3. Paroxysmal atrial fibrillation. 4. Anemia. 5. Elevated D-dimer with no evidence of pulmonary embolus. 6. Large hiatal hernia with intrathoracic stomach with volvulus unlikely per Cardiothoracic Surgery, on medical treatment. 7. Hypomagnesemia. 8. History of recent ERCP and stent replacement in [facility]. 9. Atrial fibrillation with fast ventricular rate. 10.History of chronic obstructive pulmonary disease. 11.Hypertension. 12.History of degenerative joint disease. 13.History of pneumonia. 14.History of multiple urinary tract infections. 15.History of back pain and degenerative joint disease. 16.History of cholecystectomy. 17.History of anxiety, depression. 18.Remote history of nicotine dependence. RECOMMENDATIONS AND DISCUSSION: At this time I recommend to continue current medications, continue with the monitoring, symptomatic treatment. Continue with the bronchodilators. Continue with diuretics. Also continue with empiric antibiotics. Closely follow. PT/OT evaluation. Evaluate for the home rehab. Follow closely with multiple consultants. Guarded prognosis. Further recommendations to follow. MMLEELA / KEITHN: [id number] /
[2019-01-25 16:51] LABS: Glucose,Whole Blood 137 mg/dL (75-99)
[2019-01-25 20:14] LABS: Glucose,Whole Blood 103 mg/dL (75-99)
[2019-01-25] MEDS ORDERED: METOPROLOL TARTRATE 25 MG TAB PO STA (21:47)
[2019-01-26 07:26] LABS: Glucose,Whole Blood 106 mg/dL (75-99)
[2019-01-26] MEDS: INSULIN ASPART (NovoLOG) 100 UNIT/ML VIAL SQ SCH ×2 (07:45→14:16)
[2019-01-26 07:56] LABS: Anisocytosis Slight; Basophils # (A) 0.1 k/uL (0-0.2); Basophils % (A) 1 %; Eosinophils # (A) 0.5 k/uL (0-0.7); Eosinophils % (A) 4 %; HCT 38.8 % (34.0-46.0); HGB 12.6 gm/dL (11.4-16.0); Hypochromasia Moderate; Lymphocytes # (A) 1.8 k/uL (1.0-4.8); Lymphocytes % (A) 17 %; MCH 26.4 pg (25.0-35.0); MCHC 32.4 g/dL (31.0-37.0); MCV 81.5 fL (80.0-100.0); Mean Platelet Volume 7.3; Microcytosis Slight; Monocytes # (A) 0.8 k/uL (0-1.0); Monocytes % (A) 7 %; Neutrophils # (A) 7.6 k/uL (1.3-7.7); Neutrophils % (A) 70 %; Platelet Count 379 k/uL (150-450); RBC 4.76 m/uL (3.80-5.40); RDW 17.6 % (11.5-15.5); WBC 10.8 k/uL (3.8-10.6)
[2019-01-26] MEDS: METOPROLOL TARTRATE 25 MG TAB PO SCH ×2 (08:05→20:18)
[2019-01-26] MEDS: CHOLECALCIFEROL 1,000 UNIT TAB PO SCH (08:05)
[2019-01-26] MEDS: AMOXIC-POT CLAV 500-125 MG 1 EACH TAB PO SCH ×2 (08:06→20:18)
[2019-01-26] MEDS: SERTRALINE 50 MG TAB PO SCH (08:06)
[2019-01-26] MEDS: FUROSEMIDE 10 MG/ML 4 ML VIAL IV SCH (08:06)
[2019-01-26] MEDS: APIXABAN 2.5 MG TABLET PO SCH ×2 (08:06→20:18)
[2019-01-26] MEDS: PANTOPRAZOLE 40 MG TABLET PO SCH (08:06)
[2019-01-26 08:09] LABS: Potassium 3.4 mmol/L (3.5-5.1)
[2019-01-26] MEDS: IPRATROPIUM-ALBUTEROL 3 ML NEB INHALATION SCH ×4 (08:57→19:08)
[2019-01-26] MEDS: FORMOTEROL FUMARATE 20 MCG/2 ML NEBU INHALATION SCH (08:57)
[2019-01-26] MEDS: BUDESONIDE 1 MG/2 ML NEBU INHALATION SCH (08:58)
--- NOTE | 2019-01-26 11:37 | P.PN ---
Subjective Progress Note Date: 01/26/19 Principal diagnosis: Shortness of breath multifactorial, related to interstitial lung disease/pulmonary fibrosis and COPD On 01/25/2019 patient seen in follow-up on medical surgical floor. She is calm and comfortable, in no acute distress, she remains on supplemental oxygen, cu rrently at 3 L. Denies any worsening dyspnea, she is afebrile, hemodynamically stable, noncompressive chest pain, patient has been ambulating in the room, tolerating activity fairly well, today's chest x-ray has been reviewed showing no significant change compared to yesterday. No acute events overnight, today's labs have been reviewed, showing white blood cell count of 13.6, hemoglobin of 11.0, serum sodium of 139, potassium is 3.2, chloride is 95, CO2 is 37, BUN of 25 creatinine is 1.08. On 01/26/2019 patient seen in follow-up on medical surgical floor. She is awake and alert, in no acute distress, vital signs are stable, pulse ox on 2 L of oxygen is 97%. Complaints of worsening dyspnea, no complaint of chest pain, no significant cough or congestion, lung sounds reveal Velcro-like crackles at bilateral lower lobes, and up to the middle lobe. Vital signs are stable, patient has been afebrile, today's labs have been reviewed, showing limits oh, 10.8, hemoglobin 12.6, serum sodium is 139, potassium is 3.4, chloride is 94, CO2 37, B1 is 27, creatinine is 1.06. Blood culture showed no growth, no acute events overnight. Objective - Vital Signs Vital signs: Vital Signs Temp 97.6 F 01/26/19 07:00 Pulse 74 01/26/19 09:20 Resp 16 01/26/19 08:00 BP 111/69 01/26/19 07:00 Pulse Ox 97 01/26/19 08:58 Intake & Output 01/25/19 01/26/19 01/26/19 18:59 06:59 18:59 Intake Total 440 Output Total 500 400 Balance -500 40 Intake: Oral 440 Output: Urine 500 400 Other: Voiding Method Toilet Toilet Bedpan Bedpan # Voids 5 # Bowel Movements 1 - Exam GENERAL EXAM: Alert, oriented 3, 83-year-old female, on 2 L of oxygen the pulse ox of 97% comfortable in no apparent distress. HEAD: Normocephalic/atraumatic. EYES: Normal reaction of pupils, equal size. Conjunctiva pink, sclera white. NOSE: Clear with pink turbinates. THROAT: No erythema or exudates. NECK: No masses, no JVD, no thyroid enlargement, no adenopathy. CHEST: No chest wall deformity. Symmetrical expansion. LUNGS: Equal air entry with bibasilar crackles, but no wheeze, no rhonchi or dullness. CVS: Regular rate and rhythm, normal S1 and S2, no gallops, no murmurs, no rubs ABDOMEN: Soft, nontender. No hepatosplenomegaly, normal bowel sounds, no guarding or rigidity. EXTREMITIES: No clubbing, no edema, no cyanosis, 2+ pulses and upper and lower extremities. MUSCULOSKELETAL: Muscle strength and tone normal. SPINE: No scoliosis or deformity SKIN: No rashes CENTRAL NERVOUS SYSTEM: Alert and oriented -3. No focal deficits, tone is normal in all 4 extremities. PSYCHIATRIC: Alert and oriented -3. Appropriate affect. Intact judgment and insight. - Labs CBC & Chem 7: 01/26/19 07:29 01/26/19 07:29 Labs: Abnormal Lab Results - Last 24 Hours (Table) 01/25/19 01/25/19 01/26/19 Range/Units 16:48 20:13 07:21 WBC (3.8-10.6) k/uL RDW (11.5-15.5) % Potassium (3.5-5.1) mmol/L Chloride (98-107) mmol/L Carbon Dioxide (22-30) mmol/L BUN (7-17) mg/dL Creatinine (0.52-1.04) mg/dL POC Glucose (mg/dL) 137 H 103 H 106 H (75-99) mg/dL 01/26/19 01/26/19 Range/Units 07:29 07:29 WBC 10.8 H (3.8-10.6) k/uL RDW 17.6 H (11.5-15.5) % Potassium 3.4 L (3.5-5.1) mmol/L Chloride 94 L (98-107) mmol/L Carbon Dioxide 37 H (22-30) mmol/L BUN 27 H (7-17) mg/dL Creatinine 1.06 H (0.52-1.04) mg/dL POC Glucose (mg/dL) (75-99) mg/dL Microbiology - Last 24 Hours (Table) 01/23/19 15:48 Blood Culture - Preliminary Blood No Growth after 48 hours Assessment and Plan Plan: Assessment: #1. Shortness of breath, multifactorial, predominantly related to interstitial lung disease/pulmonary fibrosis, which is likely quite severe, as well as possibility of underlying chronic obstructive pulmonary disease from 30 years of tobacco use. #2. Mildly elevated d-dimer, but his CT chest without evidence of pulmonary embolism #3. History of atrial fibrillation #4. History of angina pectoris #5. History of hypertension #6. Degenerative joint disease #7. Prior history of pneumonia #8. Chronic back pain #9. Irritable bowel syndrome #10. History of UTIs Plan: Patient remains stable, breathing is improving, no acute events overnight, no fever or chills, from pulmonary perspective she can be considered for discharge home today on oral antibiotics, DuoNeb breathing treatments and Symbicort. Follow-up with Dr. Poon in the office in 7-10 days. I performed a history & physical examination of the patient and discussed their management with my nurse practitioner, Marisela Yee. I reviewed the nurse practitioner's note and agree with the documented findings and plan of care. Lung sounds are positive for a few scattered rhonchi. The findings and the imp ression was discussed with the patient. I attest to the documentation by the nurse practitioner. Time with Patient: Less than 30
--- NOTE | 2019-01-26 13:03 | PN ---
PROGRESS NOTE Mrs. Glover is an 83-year-old female who was admitted to the hospital with symptoms of progressive dyspnea. She has history of pulmonary fibrosis as well as COPD. She is feeling better this morning. Her breathing is stable. She denies any symptoms of chest pain. She denies any dizziness or palpitations. I reviewed the EKGs that are available to me from [facility] and I have only seen sinus mechanism. Patient here had episode of multifocal atrial tachycardia, but no evidence of atrial fibrillation documented. She continues to be at this time on Eliquis 2.5 mg twice a day, metoprolol 25 mg twice a day and Lasix 40 mg IV daily. PHYSICAL EXAMINATION: Blood pressure 111/60 with the heart rate in the 60s. LUNGS: With mild rhonchi, no wheezes. HEART: Regular rate and rhythm. S1, S2. No S3. No rub. ABDOMEN: Soft, nontender. EXTREMITIES: No edema. LAB DATA: Lab data revealed BUN and creatinine 27 and 1.06, potassium 3.4, hemoglobin 12.6. IMPRESSION: 1. Symptoms of progressive dyspnea, most likely related to exacerbation of chronic obstructive pulmonary disease and pulmonary fibrosis. 2. Atrial arrhythmia with multifocal atrial tachycardia, but no documented atrial fibrillation available to me so far. 3. History of biliary stent followed at [facility]. RECOMMENDATION: From the cardiac standpoint, I will stop her IV Lasix, switch her to low-dose oral. I will leave it up to her primary care physician regarding the indication for anticoagulation. At this time from the cardiac standpoint, I do not see clear indication for anticoagulation based on the EKGs available to me. MMODL / IJN: [id number] /
--- NOTE | 2019-01-26 17:57 | P.PN ---
Subjective Progress Note Date: 01/26/19 01/26/2019 patient seen in follow-up on medical surgical floor. She is awake and alert, in no acute distress, vital signs are stable, pulse ox on 2 L of oxygen is 97%. Complaints of worsening dyspnea, no complaint of chest pain, no significant cough or congestion, lung sounds reveal Velcro-like crackles at bilateral lower lobes, and up to the middle lobe. Vital signs are stable, patient has been afebrile, today's labs have been reviewed, showing limits oh, 10.8, hemoglobin 12.6, serum sodium is 139, potassium is 3.4, chloride is 94, CO2 37, B1 is 27, creatinine is 1.06. Blood culture showed no growth, no acute events overnight Objective - Vital Signs Vital signs: Vital Signs Temp 97.6 F 01/26/19 07:00 Pulse 74 01/26/19 09:20 Resp 16 01/26/19 08:00 BP 111/69 01/26/19 07:00 Pulse Ox 97 01/26/19 08:58 Intake & Output 01/25/19 01/26/19 01/26/19 18:59 06:59 18:59 Intake Total 440 Output Total 500 400 Balance -500 40 Intake: Oral 440 Output: Urine 500 400 Other: Voiding Method Toilet Toilet Bedpan Bedpan # Voids 5 # Bowel Movements 1 - Exam PHYSICAL EXAMINATION: GENERAL: The patient is alert and oriented x3, not in any acute distress. Well developed, well nourished. HEENT: Pupils are round and equally reacting to light. EOMI. No scleral icterus. No conjunctival pallor. Normocephalic, atraumatic. No pharyngeal erythema. No thyromegaly. CARDIOVASCULAR: S1 and S2 present. No murmurs, rubs, or gallops. PULMONARY: Chest is clear to auscultation, no wheezing or crackles. ABDOMEN: Soft, nontender, nondistended, normoactive bowel sounds. No palpable organomegaly. MUSCULOSKELETAL: No joint swelling or deformity. EXTREMITIES: No cyanosis, clubbing, or pedal edema. NEUROLOGICAL: Gross neurological examination did not reveal any focal deficits. SKIN: No rashes. - Labs CBC & Chem 7: 01/26/19 07:29 01/26/19 07:29 Labs: Abnormal Lab Results - Last 24 Hours (Table) 01/25/19 01/25/19 01/26/19 Range/Units 16:48 20:13 07:21 WBC (3.8-10.6) k/uL RDW (11.5-15.5) % Potassium (3.5-5.1) mmol/L Chloride (98-107) mmol/L Carbon Dioxide (22-30) mmol/L BUN (7-17) mg/dL Creatinine (0.52-1.04) mg/dL POC Glucose (mg/dL) 137 H 103 H 106 H (75-99) mg/dL 01/26/19 01/26/19 Range/Units 07:29 07:29 WBC 10.8 H (3.8-10.6) k/uL RDW 17.6 H (11.5-15.5) % Potassium 3.4 L (3.5-5.1) mmol/L Chloride 94 L (98-107) mmol/L Carbon Dioxide 37 H (22-30) mmol/L BUN 27 H (7-17) mg/dL Creatinine 1.06 H (0.52-1.04) mg/dL POC Glucose (mg/dL) (75-99) mg/dL Microbiology - Last 24 Hours (Table) 01/23/19 15:48 Blood Culture - Preliminary Blood No Growth after 48 hours Assessment and Plan Assessment: 1. Shortness of breath, multifactorial, predominantly related to interstitial lung disease/pulmonary fibrosis, which is likely quite severe, as well as possibility of underlying chronic obstructive pulmonary disease from 30 years of tobacco use. 2. Mildly elevated d-dimer, but his CT chest without evidence of pulmonary embolism 3. History of atrial fibrillation 4. Hypertension 5. Degenerative joint disease 6. Chronic back pain 7. Irritable bowel syndrome 8. History of UTIs Plan: Patient remains on DuoNeb nebulizer treatments and Symbicort; patient has been/to oral antibiotics by pulmonary service; we will continue with current management; possible discharge in next 24-48 hours if remains stable Time with Patient: Greater than 30
[2019-01-26] MEDS: SYMBICORT 160-4.5 MCG INHALER INHALATION SCH (19:08)
[2019-01-27] MEDS: SERTRALINE 50 MG TAB PO SCH (08:09)
[2019-01-27] MEDS: CHOLECALCIFEROL 1,000 UNIT TAB PO SCH (08:09)
[2019-01-27] MEDS: PANTOPRAZOLE 40 MG TABLET PO SCH (08:09)
[2019-01-27] MEDS: FUROSEMIDE 20 MG TAB PO SCH (08:09)
[2019-01-27] MEDS: METOPROLOL TARTRATE 25 MG TAB PO SCH ×2 (08:09→20:58)
[2019-01-27] MEDS: AMOXIC-POT CLAV 500-125 MG 1 EACH TAB PO SCH ×2 (08:09→20:58)
[2019-01-27] MEDS: APIXABAN 2.5 MG TABLET PO SCH ×2 (08:09→20:58)
[2019-01-27] MEDS: SYMBICORT 160-4.5 MCG INHALER INHALATION SCH ×2 (08:25→20:23)
[2019-01-27] MEDS: IPRATROPIUM-ALBUTEROL 3 ML NEB INHALATION SCH ×4 (08:25→20:22)
[2019-01-27 09:41] LABS: Anisocytosis Slight; Basophils # (A) 0.1 k/uL (0-0.2); Basophils % (A) 1 %; Eosinophils # (A) 1.2 k/uL (0-0.7); Eosinophils % (A) 11 %; HCT 38.2 % (34.0-46.0); HGB 12.4 gm/dL (11.4-16.0); Hypochromasia Moderate; Lymphocytes # (A) 2.4 k/uL (1.0-4.8); Lymphocytes % (A) 21 %; MCH 26.4 pg (25.0-35.0); MCHC 32.4 g/dL (31.0-37.0); MCV 81.4 fL (80.0-100.0); Mean Platelet Volume 7.3; Microcytosis Slight; Monocytes # (A) 0.7 k/uL (0-1.0); Monocytes % (A) 6 %; Neutrophils # (A) 6.7 k/uL (1.3-7.7); Neutrophils % (A) 60 %; Platelet Count 364 k/uL (150-450); RDW 17.5 % (11.5-15.5); WBC 11.3 k/uL (3.8-10.6)
[2019-01-27 09:57] LABS: Calcium 9.1 mg/dL (8.4-10.2); Potassium 3.5 mmol/L (3.5-5.1)
--- NOTE | 2019-01-27 13:09 | P.PN ---
Subjective Progress Note Date: 01/27/19 Principal diagnosis: Dyspnea; multifactorial; interstitial lung disease/pulmonary fibrosis; COPD Acute onset diarrhea; rule out C. diff colitis 01/26/2019 patient seen in follow-up on medical surgical floor. She is awake and alert, in no acute distress, vital signs are stable, pulse ox on 2 L of oxygen is 97%. Complaints of worsening dyspnea, no complaint of chest pain, no significant cough or congestion, lung sounds reveal Velcro-like crackles at bilateral lower lobes, and up to the middle lobe. Vital signs are stable, patient has been afebrile, today's labs have been reviewed, showing limits oh, 10.8, hemoglobin 12.6, serum sodium is 139, potassium is 3.4, chloride is 94, CO2 37, B1 is 27, creatinine is 1.06. Blood culture showed no growth, no acute events overnight 01/27/2019 Patient is seen and evaluated in the room at bedside; continues to complain of multiple episodes of diarrhea; complains of extreme weakness Vital signs remained stable with a temperature of 98.1, pulse 117 improving to 60, respiration 12 and blood pressure of 144/80 Laboratory review shows continued L4 trend and white blood count from 10.8 yesterday to 11.3 this morning; sodium 139 with potassium of 3.5, BUN/creatinine of 23/1.08 We will send stool for C. diff toxin; continue with IV fluid hydration; continue with oral antibiotic therapy in form of Augmentin 5001 25 mg twice a day Possible discharge in next 24 hours if remains stable Objective - Vital Signs Vital signs: Vital Signs Temp 98.1 F 01/27/19 06:44 Pulse 60 01/27/19 08:39 Resp 12 01/27/19 06:44 BP 144/80 01/27/19 06:44 Pulse Ox 97 01/27/19 08:25 Intake & Output 01/26/19 01/27/19 01/27/19 18:59 06:59 18:59 Intake Total 220 Balance 220 Intake: Oral 220 Other: Voiding Method Toilet Toilet Bedside Commode Bedpan Bedpan # Voids 2 # Bowel Movements 2 - Exam PHYSICAL EXAMINATION: GENERAL: The patient is alert and oriented x3, not in any acute distress. Well developed, well nourished. HEENT: Pupils are round and equally reacting to light. EOMI. No scleral icterus. No conjunctival pallor. Normocephalic, atraumatic. No pharyngeal erythema. No thyromegaly. CARDIOVASCULAR: S1 and S2 present. No murmurs, rubs, or gallops. PULMONARY: Chest is clear to auscultation, no wheezing or crackles. ABDOMEN: Soft, nontender, nondistended, normoactive bowel sounds. No palpable organomegaly. MUSCULOSKELETAL: No joint swelling or deformity. EXTREMITIES: No cyanosis, clubbing, or pedal edema. NEUROLOGICAL: Gross neurological examination did not reveal any focal deficits. SKIN: No rashes. - Labs CBC & Chem 7: 01/27/19 09:18 01/27/19 09:18 Labs: Microbiology - Last 24 Hours (Table) 01/23/19 15:48 Blood Culture - Preliminary Blood No Growth after 72 hours Assessment and Plan Assessment: 1. Shortness of breath, multifactorial, predominantly related to interstitial lung disease/pulmonary fibrosis, which is likely quite severe, as well as possibility of underlying chronic obstructive pulmonary disease from 30 years of tobacco use. 2. Mildly elevated d-dimer, but his CT chest without evidence of pulmonary embolism 3. History of atrial fibrillation 4. Hypertension 5. Degenerative joint disease 6. Chronic back pain 7. Irritable bowel syndrome 8. History of UTIs Plan: Patient remains on DuoNeb nebulizer treatments and Symbicort; patient has been/to oral antibiotics by pulmonary service; we will continue with current management; possible discharge in next 24-48 hours if remains stable
[2019-01-28 07:17] VITALS: BP 118/62; TEMP 97.6
[2019-01-28 07:55] VITALS: RESP 18
[2019-01-28] MEDS: IPRATROPIUM-ALBUTEROL 3 ML NEB INHALATION SCH (08:50)
[2019-01-28] MEDS: SYMBICORT 160-4.5 MCG INHALER INHALATION SCH (08:50)
[2019-01-28 08:57] VITALS: PULSE 68
[2019-01-28] MEDS: APIXABAN 2.5 MG TABLET PO SCH (09:16)
[2019-01-28] MEDS: PANTOPRAZOLE 40 MG TABLET PO SCH (09:16)
[2019-01-28] MEDS: AMOXIC-POT CLAV 500-125 MG 1 EACH TAB PO SCH (09:16)
[2019-01-28] MEDS: SERTRALINE 50 MG TAB PO SCH (09:16)
[2019-01-28] MEDS: METOPROLOL TARTRATE 25 MG TAB PO SCH (09:16)
[2019-01-28] MEDS: CHOLECALCIFEROL 1,000 UNIT TAB PO SCH (09:16)
[2019-01-28] MEDS: FUROSEMIDE 20 MG TAB PO SCH (09:16)
--- NOTE | 2019-01-28 12:00 | P.DS ---
Providers Date of admission: 01/23/19 18:52 Expected date of discharge: 01/28/19 Attending physician: Candido Chappell Consults: 01/23/19 18:52 Consult Physician Routine Consulting Provider: Demian Poon Consult Reason/Comments: COPD, pulmonary fibrosis Do you want consulting provider notified?: Yes 01/23/19 20:27 Consult Physician Routine Consulting Provider: Stacey Beard Consult Reason/Comments: afib Do you want consulting provider notified?: Yes Consult Physician Routine Consulting Provider: Brian Norman Consult Reason/Comments: hiatal hernia Do you want consulting provider notified?: Yes Primary care physician: Candido Chappell Hospital Course: 83-year-old female past medical history significant for paroxysmal atrial fibrillation on half-way anticoagulation, COPD, hypertension and recent biliary stent replacement at [facility] November 2018. She denies history of coronary artery disease, dyslipidemia or diabetes mellitus in the past. We have been asked to see her in consultation for atrial fibrillation. She is seen and examined sitting up in the chair in no acute distress. She continues to have some mild shortness of breath that is improving. She denies chest pain, palpitations or dizziness. No PND or orthopnea. Laboratory data reviewed, WBC 13.6, hgb 11.0, plt 333, sodium 139, potassium 3.2, creatinine 1.08 and magnesium 2.1. Blood pressure 140/58 heart rate 76 afebrile and maintaining oxygen saturation nasal cannula. Repeat chest xray reveals pulmonary fibrosis. Echocardiogram obtained preserved LV systolic function with ejection fraction 50-55%, severely dilated left atrium, mild to moderate mitral regurgitation, mild tricuspid regurgitation and mild pulmonary hypertension with an RVSP of 43 mmHg. Documents obtained from HF reviewed, unfortunately they did not send an EKG. We would like to see this specifically. Thus far there has been no documented atrial fibrillation only mult-focal atrial tachycardia. It is quite possible this has been misinterpreted in the past and a-fib diagnosis placed. 01/26/2019 patient seen in follow-up on medical surgical floor. She is awake and alert, in no acute distress, vital signs are stable, pulse ox on 2 L of oxygen is 97%. Complaints of worsening dyspnea, no complaint of chest pain, no significant cough or congestion, lung sounds reveal Velcro-like crackles at bilateral lower lobes, and up to the middle lobe. Vital signs are stable, patient has been afebrile, today's labs have been reviewed, showing limits oh, 10.8, hemoglobin 12.6, serum sodium is 139, potassium is 3.4, chloride is 94, CO2 37, B1 is 27, creatinine is 1.06. Blood culture showed no growth, no acute events overnight 01/27/2019 Patient is seen and evaluated in the room at bedside; continues to complain of multiple episodes of diarrhea; complains of extreme weakness Vital signs remained stable with a temperature of 98.1, pulse 117 improving to 60, respiration 12 and blood pressure of 144/80 Laboratory review shows continued L4 trend and white blood count from 10.8 yesterday to 11.3 this morning; sodium 139 with potassium of 3.5, BUN/creatinine of 23/1.08 We will send stool for C. diff toxin; continue with IV fluid hydration; continue with oral antibiotic therapy in form of Augmentin 5001 25 mg twice a day Possible discharge in next 24 hours if remains stable 01/28/2019; patient remained stable without any specific complaints; has been/to oral antibiotic therapy; C. diff toxin is negative; diarrhea is resolved; discharge patient home in a stable condition Plan - Discharge Summary Discharge Rx Participant: No New Discharge Prescriptions: New Amoxic-Pot Clav 500-125 mg [Augmentin 500-125 mg] 1 each PO BID #4 tab Furosemide [Lasix] 20 mg PO DAILY #30 tab Budesonide-Formot 160-4.5 Mcg [Symbicort 160-4.5 Mcg Inhaler] 2 puff INHALATION RT-BID #1 puff Continue Omeprazole 20 mg PO DAILY Cholecalciferol [Vitamin D3 (25 Mcg = 1000 Iu)] 1,000 unit PO DAILY traMADol HCL [Ultram] 50 mg PO Q6HR PRN PRN Reason: Pain Sertraline [Zoloft] 50 mg PO DAILY Metoprolol Tartrate [Lopressor] 25 mg PO BID Apixaban [Eliquis] 2.5 mg PO BID Discharge Medication List Cholecalciferol [Vitamin D3 (25 Mcg = 1000 Iu)] 1,000 unit PO DAILY 01/14/15 [History] Omeprazole 20 mg PO DAILY 01/14/15 [History] traMADol HCL [Ultram] 50 mg PO Q6HR PRN 09/05/16 [History] Sertraline [Zoloft] 50 mg PO DAILY 11/23/18 [History] Apixaban [Eliquis] 2.5 mg PO BID 01/23/19 [History] Metoprolol Tartrate [Lopressor] 25 mg PO BID 01/23/19 [History] Amoxic-Pot Clav 500-125 mg [Augmentin 500-125 mg] 1 each PO BID #4 tab 01/28/19 [Rx] Budesonide-Formot 160-4.5 Mcg [Symbicort 160-4.5 Mcg Inhaler] 2 puff INHALATION RT-BID #1 puff 01/28/19 [Rx] Furosemide [Lasix] 20 mg PO DAILY #30 tab 01/28/19 [Rx] Follow up Appointment(s)/Referral(s): Candido Chappell MD [Primary Care Provider] - 1-2 days (Office closed at time of discharge. Please call office and make appt.) [facility] [NON-STAFF] - As Needed Patient Instructions/Handouts: Pulmonary Fibrosis (DC), COPD (Chronic Obstructive Pulmonary Disease) (DC) Discharge Disposition: HOME WITH HOME HEALTH SERVICES
== END 2019-01-28 11:59 | disposition home health service (06) | DRG 196 ==
LOC: EC 14:09 → 4SSUR 18:52
PROVIDERS: ADMIT Family Medicine; ATTEND Family Medicine
DX: J84.10 Pulmonary fibrosis, unspecified (principal); I50.33 Acute on chronic diastolic (congestive) heart failure; I47.1 Supraventricular tachycardia; J44.1 Chronic obstructive pulmonary disease with (acute) exacerbation; D64.9 Anemia, unspecified; E83.42 Hypomagnesemia; G89.29 Other chronic pain; I27.20 Pulmonary hypertension, unspecified; I34.0 Nonrheumatic mitral (valve) insufficiency; K44.9 Diaphragmatic hernia without obstruction or gangrene; I11.0 Hypertensive heart disease with heart failure; K58.9 Irritable bowel syndrome, unspecified; M19.90 Unspecified osteoarthritis, unspecified site; M41.9 Scoliosis, unspecified; Z96.651 Presence of right artificial knee joint; Z79.899 Other long term (current) drug therapy; Z79.01 Long term (current) use of anticoagulants; Z82.49 Family history of ischemic heart disease and other diseases of the circulatory system; Z82.3 Family history of stroke; Z83.3 Family history of diabetes mellitus; Z87.01 Personal history of pneumonia (recurrent); Z87.440 Personal history of urinary (tract) infections; Z87.891 Personal history of nicotine dependence; Z90.49 Acquired absence of other specified parts of digestive tract; Z99.81 Dependence on supplemental oxygen; Z88.2 Allergy status to sulfonamides
CPT/HCPCS: 36415; 71045; 71046; 71275; 80048; 80053; 81001; 83735; 83880; 84484; 85025; 85379; 85610; 85730; 87040; 87324; 93005; 93306; 94640; 94760; 96374; 96375; 99285

== ENCOUNTER 2019-03-13 07:54 | Inpatient (IN) | payer MEDICARE, BC ==
[2019-03-13] MEDS ORDERED: IPRATROPIUM-ALBUTEROL 3 ML NEB INHALATION STA (08:14)
--- NOTE | 2019-03-13 08:31 | ED ---
SOB HPI - General Source: patient, EMS, RN notes reviewed Mode of arrival: EMS Limitations: physical limitation <Cam Cobos - Last Filed: 03/13/19 10:15> <Zachery Prince - Last Filed: 03/13/19 10:33> - General Chief Complaint: Shortness of Breath Stated Complaint: NARENDRA Time Seen by Provider: 03/13/19 08:09 - History of Present Illness Initial Comments: This is an 83-year-old female presents emergency department via EMS chief complaint of increased shortness of breath. Patient states last 24 hours she's had no swelling crease of breath. She does wear home O2 and which she states she is on 2 and half liters. Patient has known COPD. Patient denies any current fever, chills, leg swelling no history of CHF. Patient states she has a slight cough and mild discomfort associated with this. Patient states that her oxygen does help her. She has not been recently recently. Patient offers no other complaints at this time. (Cam Cobos) - Related Data Home Medications Medication Instructions Recorded Confirmed Cholecalciferol [Vitamin D3 (25 1,000 unit PO DAILY 01/14/15 03/13/19 Mcg = 1000 Iu)] Omeprazole 20 mg PO DAILY 01/14/15 03/13/19 traMADol HCL [Ultram] 50 mg PO Q6HR PRN 09/05/16 03/13/19 Apixaban [Eliquis] 2.5 mg PO BID 01/23/19 03/13/19 Metoprolol Tartrate [Lopressor] 25 mg PO BID 01/23/19 03/13/19 Albuterol Inhaler [Ventolin Hfa 2 puff INHALATION RT-Q6H PRN 03/13/19 03/13/19 Inhaler] Fluticasone/Umeclidin/Vilanter 1 puff INHALATION RT-BID 03/13/19 03/13/19 [Trelegy Ellipta 100-62.5-25] Ipratropium [place] 0.06%Nasal 1 spray EA NOSTRIL DAILY 03/13/19 03/13/19 [Atrovent Nasal 0.06%] Sertraline HCl [Zoloft] 100 mg PO DAILY 03/13/19 03/13/19 Previous Rx's Medication Instructions Recorded Furosemide [Lasix] 20 mg PO DAILY #30 tab 01/28/19 Allergies Allergy/AdvReac Type Severity Reaction Status Date / Time Sulfa (Sulfonamide Allergy Rash/Hives Verified 03/13/19 09:01 Antibiotics) Review of Systems ROS Other: All systems not noted in ROS Statement are negative. <Cam Cobos - Last Filed: 03/13/19 10:15> ROS Other: All systems not noted in ROS Statement are negative. <Zachery Prince - Last Filed: 03/13/19 10:33> ROS Statement: Those systems with pertinent positive or pertinent negative responses have been documented in the HPI. Past Medical History Past Medical History: Atrial Fibrillation, Chest Pain / Angina, COPD, Hypertension, Osteoarthritis (OA), Pneumonia Additional Past Medical History / Comment(s): 01/14/15 Pt presented to [facility] ER via EMS with chest pain which was a tightness across chest. Pain began 1-2 hours before arrival to ER. Other HX: IBS, UTIs, chronic back pain, scoliosis, DDD, R sided pneumonia 2013. History of Any Multi-Drug Resistant Organisms: None Reported Past Surgical History: Cholecystectomy, Joint Replacement Additional Past Surgical History / Comment(s): ovarian cyst removed, right knee replacement, colonoscopy-normal. Past Anesthesia/Blood Transfusion Reactions: No Reported Reaction Additional Past Anesthesia/Blood Transfusion Reaction / Comment(s): Pt has never recieved blood. Past Psychological History: Anxiety, Depression Smoking Status: Former smoker Past Alcohol Use History: None Reported Past Drug Use History: None Reported - Past Family History Sister(s) Family Medical History: Diabetes Mellitus Father Family Medical History: Congestive Heart Failure (CHF), Myocardial Infarction ([place]) Additional Family Medical History / Comment(s): Father of CHF at 68yrs of age. Mother Family Medical History: CVA/TIA Additional Family Medical History / Comment(s): Mother of a massive CVA <Cam Cobos - Last Filed: 03/13/19 10:15> General Exam Limitations: physical limitation General appearance: alert, in no apparent distress Head exam: Present: atraumatic, normocephalic, normal inspection Eye exam: Present: normal appearance, PERRL, EOMI. Absent: scleral icterus, conjunctival injection, periorbital swelling ENT exam: Present: normal oropharynx, mucous membranes moist, TM's normal bilaterally, other. Absent: normal exam Neck exam: Present: normal inspection, full ROM. Absent: tenderness, meningismus, lymphadenopathy Respiratory exam: Present: wheezes (Minimal), decreased breath sounds. Absent: normal lung sounds bilaterally, respiratory distress (No distress), rales, rhonchi, stridor Cardiovascular Exam: Present: regular rate, normal rhythm, normal heart sounds. Absent: systolic murmur, diastolic murmur, rubs, gallop, clicks <Cam Cobos - Last Filed: 03/13/19 10:15> Course Vital Signs 03/13/19 03/13/19 03/13/19 07:56 08:35 08:45 Temperature 97.5 F L Pulse Rate 85 77 78 Respiratory 20 Rate Blood Pressure 120/74 O2 Sat by Pulse 94 L Oximetry Medical Decision Making - Lab Data Result diagrams: 03/13/19 08:15 03/13/19 08:15 - EKG Data -: EKG Interpreted by Wi <Cam Cobos - Last Filed: 03/13/19 10:15> - Lab Data Result diagrams: 03/13/19 08:15 03/13/19 08:15 <Zachery Prince - Last Filed: 03/13/19 10:33> - Medical Decision Making Chest x-ray shows chronic changes. Patient continues to have some dyspnea and mild wheezing. Patient will be admitted for IV steroids, breathing treatments. (Cam Cobos) Patient reexamined and reevaluated by myself, Dr. Prince. I do agree with PAs findings. This includes diagnostic interpretation treatment plan. Patient has decreased air exchange. Patient states she does feel somewhat better than previous. Case was discussed in detail with Dr. Chappell, who will admit his patient with consult for Dr. thakkar who has previously seen this patient. (Zachery Prince) - Lab Data Lab Results 03/13/19 03/13/19 03/13/19 Range/Units 08:15 08:15 08:15 WBC 8.0 (3.8-10.6) k/uL RBC 4.31 (3.80-5.40) m/uL Hgb 10.7 L (11.4-16.0) gm/dL Hct 34.8 (34.0-46.0) % MCV 80.8 (80.0-100.0) fL MCH 24.7 L (25.0-35.0) pg MCHC 30.6 L (31.0-37.0) g/dL RDW 17.8 H (11.5-15.5) % Plt Count 299 (150-450) k/uL Neutrophils % 72 % Lymphocytes % 15 % Monocytes % 5 % Eosinophils % 6 % Basophils % 1 % Neutrophils # 5.8 (1.3-7.7) k/uL Lymphocytes # 1.2 (1.0-4.8) k/uL Monocytes # 0.4 (0-1.0) k/uL Eosinophils # 0.4 (0-0.7) k/uL Basophils # 0.1 (0-0.2) k/uL Hypochromasia Marked Anisocytosis Slight Microcytosis Slight PT (9.0-12.0) sec INR (<1.2) APTT (22.0-30.0) sec Sodium 138 (137-145) mmol/L Potassium 3.9 (3.5-5.1) mmol/L Chloride 100 (98-107) mmol/L Carbon Dioxide 29 (22-30) mmol/L Anion Gap 9 mmol/L BUN 25 H (7-17) mg/dL Creatinine 0.92 (0.52-1.04) mg/dL Est GFR (CKD-EPI)AfAm 68 (>60 ml/min/1.73 sqM) Est GFR (CKD-EPI)NonAf 59 (>60 ml/min/1.73 sqM) Glucose 68 L (74-99) mg/dL Calcium 9.1 (8.4-10.2) mg/dL Magnesium 1.8 (1.6-2.3) mg/dL Total Bilirubin 0.8 (0.2-1.3) mg/dL AST 30 (14-36) U/L ALT 20 (9-52) U/L Alkaline Phosphatase 97 (38-126) U/L Troponin I (0.000-0.034) ng/mL NT-Pro-B Natriuret Pep 1520 pg/mL Total Protein 6.4 (6.3-8.2) g/dL Albumin 3.4 L (3.5-5.0) g/dL 03/13/19 03/13/19 Range/Units 08:15 08:15 WBC (3.8-10.6) k/uL RBC (3.80-5.40) m/uL Hgb (11.4-16.0) gm/dL Hct (34.0-46.0) % MCV (80.0-100.0) fL MCH (25.0-35.0) pg MCHC (31.0-37.0) g/dL RDW (11.5-15.5) % Plt Count (150-450) k/uL Neutrophils % % Lymphocytes % % Monocytes % % Eosinophils % % Basophils % % Neutrophils # (1.3-7.7) k/uL Lymphocytes # (1.0-4.8) k/uL Monocytes # (0-1.0) k/uL Eosinophils # (0-0.7) k/uL Basophils # (0-0.2) k/uL Hypochromasia Anisocytosis Microcytosis PT 10.6 (9.0-12.0) sec INR 1.0 (<1.2) APTT 28.1 (22.0-30.0) sec Sodium (137-145) mmol/L Potassium (3.5-5.1) mmol/L Chloride (98-107) mmol/L Carbon Dioxide (22-30) mmol/L Anion Gap mmol/L BUN (7-17) mg/dL Creatinine (0.52-1.04) mg/dL Est GFR (CKD-EPI)AfAm (>60 ml/min/1.73 sqM) Est GFR (CKD-EPI)NonAf (>60 ml/min/1.73 sqM) Glucose (74-99) mg/dL Calcium (8.4-10.2) mg/dL Magnesium (1.6-2.3) mg/dL Total Bilirubin (0.2-1.3) mg/dL AST (14-36) U/L ALT (9-52) U/L Alkaline Phosphatase (38-126) U/L Troponin I 0.016 (0.000-0.034) ng/mL NT-Pro-B Natriuret Pep pg/mL Total Protein (6.3-8.2) g/dL Albumin (3.5-5.0) g/dL - EKG Data EKG Comments: EKG performed at 8:25 sinus rhythm rate of 83 AL 134 QRS 76 QT status QTC 374/439 (Cam Cobos) Disposition <Cam Cobos - Last Filed: 03/13/19 10:15> <Zachery Prince - Last Filed: 03/13/19 10:33> Clinical Impression: COPD exacerbation, Pulmonary fibrosis Disposition: ADMITTED IP TO THIS HOSP Condition: Fair Referrals: Candido Chappell MD [Primary Care Provider] - 1-2 days
[2019-03-13 08:32] LABS: Anisocytosis Slight; Basophils # (A) 0.1 k/uL (0-0.2); Basophils % (A) 1 %; Eosinophils # (A) 0.4 k/uL (0-0.7); Eosinophils % (A) 6 %; HCT 34.8 % (34.0-46.0); HGB 10.7 gm/dL (11.4-16.0); Hypochromasia Marked; Lymphocytes # (A) 1.2 k/uL (1.0-4.8); Lymphocytes % (A) 15 %; MCH 24.7 pg (25.0-35.0); MCHC 30.6 g/dL (31.0-37.0); MCV 80.8 fL (80.0-100.0); Mean Platelet Volume 6.6; Microcytosis Slight; Monocytes # (A) 0.4 k/uL (0-1.0); Monocytes % (A) 5 %; Neutrophils # (A) 5.8 k/uL (1.3-7.7); Neutrophils % (A) 72 %; Platelet Count 299 k/uL (150-450); RBC 4.31 m/uL (3.80-5.40); RDW 17.8 % (11.5-15.5)
[2019-03-13 08:39] LABS: Albumin 3.4 g/dL (3.5-5.0); Calcium 9.1 mg/dL (8.4-10.2); Magnesium 1.8 mg/dL (1.6-2.3); Partial Thromboplastin Time 28.1 sec (22.0-30.0); Potassium 3.9 mmol/L (3.5-5.1); Prothrombin Time 10.6 sec (9.0-12.0); Total Bilirubin 0.8 mg/dL (0.2-1.3); Total Protein 6.4 g/dL (6.3-8.2)
--- NOTE | 2019-03-13 09:19 | XR ---
EXAMINATION TYPE: XR chest 2V DATE OF EXAM: 03/13/2019 COMPARISON: Chest x-ray January 24, 2019. CT chest January 23, 2019. HISTORY: Difficulty in breathing. TECHNIQUE: Frontal and lateral views of the chest are obtained. FINDINGS: Osseous structures remain demineralized. Exaggerated thoracic kyphosis redemonstrated. Car diac silhouette size is stable and within normal limits. Retrocardiac opacity consistent with moderat e to large size hiatal hernia again seen background reticular fibrotic changes most prominent in the lower lungs redemonstrated some right-sided volume loss with mediastinal shift again seen. No new foc al airspace opacity, pleural effusion, or pneumothorax. Overlying EKG leads. IMPRESSION: Chronic parenchymal fibrotic changes without new acute pulmonary process.
[2019-03-13] MEDS ORDERED: methylPREDNISolone SOD SUCCI 125 MG/2 ML VIAL IV STA (10:17)
[2019-03-13] MEDS ORDERED: AZITHROMYCIN 500 MG in SODIUM CHLORIDE 0.9% 250 ML IVPB STA (10:18)
--- NOTE | 2019-03-13 11:11 | P.HPIM ---
History of Present Illness 83-year-old female presented to the emergency room with complaints of increasing shortness of breath. Worse last night. Patient has chronic COPD with home O2 at 2-1/2 L. Patient has a history of atrial fibrillation hypertension anxiety depression Review of Systems Respiratory: Reports cough, Reports dyspnea Gastrointestinal: Reports loss of appetite Past Medical History Past Medical History: Atrial Fibrillation, Chest Pain / Angina, COPD, Hypertension, Osteoarthritis (OA), Pneumonia Additional Past Medical History / Comment(s): 01/14/15 Pt presented to [facility] ER via EMS with chest pain which was a tightness across chest. Pain began 1-2 hours before arrival to ER. Other HX: IBS, UTIs, chronic back pain, scoliosis, DDD, R sided pneumonia 2013. History of Any Multi-Drug Resistant Organisms: None Reported Past Surgical History: Cholecystectomy, Joint Replacement Additional Past Surgical History / Comment(s): ovarian cyst removed, right knee replacement, colonoscopy-normal. Past Anesthesia/Blood Transfusion Reactions: No Reported Reaction Additional Past Anesthesia/Blood Transfusion Reaction / Comment(s): Pt has never recieved blood. Past Psychological History: Anxiety, Depression Smoking Status: Former smoker Past Alcohol Use History: None Reported Past Drug Use History: None Reported - Past Family History Sister(s) Family Medical History: Diabetes Mellitus Father Family Medical History: Congestive Heart Failure (CHF), Myocardial Infarction ([place]) Additional Family Medical History / Comment(s): Father of CHF at 68yrs of age. Mother Family Medical History: CVA/TIA Additional Family Medical History / Comment(s): Mother of a massive CVA Medications and Allergies Home Medications Medication Instructions Recorded Confirmed Type Cholecalciferol [Vitamin D3 (25 1,000 unit PO DAILY 01/14/15 03/13/19 History Mcg = 1000 Iu)] Omeprazole 20 mg PO DAILY 01/14/15 03/13/19 History traMADol HCL [Ultram] 50 mg PO Q6HR PRN 09/05/16 03/13/19 History Apixaban [Eliquis] 2.5 mg PO BID 01/23/19 03/13/19 History Metoprolol Tartrate [Lopressor] 25 mg PO BID 01/23/19 03/13/19 History Furosemide [Lasix] 20 mg PO DAILY #30 tab 01/28/19 03/13/19 Rx Albuterol Inhaler [Ventolin Hfa 2 puff INHALATION RT-Q6H PRN 03/13/19 03/13/19 History Inhaler] Fluticasone/Umeclidin/Vilanter 1 puff INHALATION RT-BID 03/13/19 03/13/19 History [Treleyvette Ellipta 100-62.5-25] Ipratropium [place] 0.06%Nasal 1 spray EA NOSTRIL DAILY 03/13/19 03/13/19 History [Atrovent Nasal 0.06%] Sertraline HCl [Zoloft] 100 mg PO DAILY 03/13/19 03/13/19 History Allergies Allergy/AdvReac Type Severity Reaction Status Date / Time Sulfa (Sulfonamide Allergy Rash/Hives Verified 03/13/19 09:01 Antibiotics) Physical Exam Vitals: Vital Signs Temp Pulse Resp BP Pulse Ox 03/13/19 08:45 78 03/13/19 08:35 77 03/13/19 07:56 97.5 F L 85 20 120/74 94 L Intake and Output 03/12/19 03/13/19 03/13/19 22:59 06:59 14:59 Other: Weight 54.431 kg - Constitutional General appearance: mild distress - EENT Eyes: PERRLA Ears: bilateral: normal - Neck Neck: normal ROM - Respiratory Respiratory: bilateral: diminished - Cardiovascular Rhythm: regularly irregular - Gastrointestinal General gastrointestinal: normal bowel sounds, soft - Integumentary Integumentary: normal - Neurologic Neurologic: CNII-XII intact - Musculoskeletal Kyphosis Musculoskeletal: generalized weakness - Psychiatric Psychiatric: A&O x's 3, appropriate affect, intact judgment & insight Results CBC & Chem 7: 03/13/19 08:15 03/13/19 08:15 Labs: Abnormal Lab Results - Last 24 Hours (Table) 03/13/19 03/13/19 Range/Units 08:15 08:15 Hgb 10.7 L (11.4-16.0) gm/dL MCH 24.7 L (25.0-35.0) pg MCHC 30.6 L (31.0-37.0) g/dL RDW 17.8 H (11.5-15.5) % BUN 25 H (7-17) mg/dL Glucose 68 L (74-99) mg/dL Albumin 3.4 L (3.5-5.0) g/dL Abdominal x-ray: report reviewed (No acute changes chronic) Assessment and Plan Plan: Assessment Acute on chronic COPD on home O2 Pulmonary fibrosis History of intermittent atrial fibrillation Hypertension Osteoarthritis Anxiety/depression Plan Consultation with Dr. Poon On antibiotics steroids and bronchodilators
[2019-03-13] MEDS ORDERED: INFLUENZA VACCINE (6 MOS+) 60 MCG/0.5 ML SYRINGE IM ONE (11:37)
--- NOTE | 2019-03-13 12:09 | P.CNPUL ---
History of Present Illness Consult date: 03/13/19 Reason for consult: dyspnea, COPD, pulmonary fibrosis History of present illness: Is an 83-year-old female patient with COPD and pulmonary fibrosis and chronic hypoxic respiratory failure maintained on oxygen at 2-1/2 L per minute nasal cannula. The patient also has severe kyphoscoliosis of the thoracolumbar spine, a large hiatal hernia with difficulties with swallowing and episodic reflux and she has been gradually losing weight. At other medical problems and comorbidities include chronic atrial fibrillation, hypertension, and chronic a nxiety/depression. Patient was also in the hospital back in November 2018 for a biliary stone that was unable to be extracted by gastroenterology and based on that the patient was transferred to [facility] with the procedure was done successfully. At that time the patient was also septic with gram-negative bacillus. Following that she has been hospitalization back in January 2019 for an acute worsening of her chronic shortness of breath attributed to be related to exacerbation of COPD/pulmonary fibrosis. Her echocardiogram showed a moderate LVH with an ejection fraction of 55% and there is no significant valvular abnormalities During this current admission, the patient become progressively more weak, her oral intake has diminished and the patient has been losing weight. She has been having exertional dyspnea. No chest pain. No pleurisy. No hemoptysis. She has a chronic cough without any significant sputum production. No fever. No chills. The renal function is stable. No significant leukocytosis. Correlation profile is within normal limits. EKG showing a normal sinus rhythm. The chest x-ray is showing chronic parenchymal fibrotic changes without any acute cardio pulmonary process. Review of Systems Constitutional: Reports fatigue, Reports poor appetite, Reports weakness, Reports weight loss Eyes: denies blurred vision, denies bulging eye, denies decreased vision Ears: deny: decreased hearing, ear discharge, earache, tinnitus Ears, nose, mouth and throat: Denies headache, Denies sore throat Cardiovascular: Reports decreased exercise tolerance, Reports shortness of breath Respiratory: Reports cough, Reports dyspnea Gastrointestinal: Reports as per HPI (Large hiatal hernia), Reports heartburn Genitourinary: Reports as per HPI Menstruation: Reports as per HPI Musculoskeletal: Reports as per HPI Musculoskeletal: absent: ankle pain, ankle stiffness, ankle swelling Integumentary: Reports as per HPI Neurological: Reports as per HPI Psychiatric: Reports as per HPI Endocrine: Reports as per HPI, Reports fatigue Hematologic/Lymphatic: Reports as per HPI Allergic/Immunologic: Reports as per HPI Past Medical History Past Medical History: Atrial Fibrillation, Chest Pain / Angina, COPD, GERD/Reflux, Hypertension, Osteoarthritis (OA), Pneumonia Additional Past Medical History / Comment(s): Paroxysmal Afib, echo 01/2019 showed EF 50-55%, chronic respiratory failure with home oxygen at 2.5L/NC ATC, pulmonary fibrosis, chronic entire back pain, scoliosis, DDD, IBS, UTIs, seasonal allergies. History of Any Multi-Drug Resistant Organisms: None Reported Past Surgical History: Cholecystectomy, Joint Replacement Additional Past Surgical History / Comment(s): 11/2018 biliary stent at [facility], ovarian cyst removed, right knee replacement, colonoscopy-normal. Past Anesthesia/Blood Transfusion Reactions: No Reported Reaction Additional Past Anesthesia/Blood Transfusion Reaction / Comment(s): Pt has never recieved blood. Smoking Status: Former smoker - Past Family History Sister(s) Family Medical History: Diabetes Mellitus Father Family Medical History: Congestive Heart Failure (CHF), Myocardial Infarction ([place]) Additional Family Medical History / Comment(s): Father of CHF at 68yrs of age. Mother Family Medical History: CVA/TIA Additional Family Medical History / Comment(s): Mother of a massive CVA and of it at the age of 76yrs. Medications and Allergies Home Medications Medication Instructions Recorded Confirmed Type Cholecalciferol [Vitamin D3 (25 1,000 unit PO DAILY 01/14/15 03/13/19 History Mcg = 1000 Iu)] Omeprazole 20 mg PO DAILY 01/14/15 03/13/19 History traMADol HCL [Ultram] 50 mg PO Q6HR PRN 09/05/16 03/13/19 History Apixaban [Eliquis] 2.5 mg PO BID 01/23/19 03/13/19 History Metoprolol Tartrate [Lopressor] 25 mg PO BID 01/23/19 03/13/19 History Furosemide [Lasix] 20 mg PO DAILY #30 tab 01/28/19 03/13/19 Rx Albuterol Inhaler [Ventolin Hfa 2 puff INHALATION RT-Q6H PRN 03/13/19 03/13/19 History Inhaler] Fluticasone/Umeclidin/Vilanter 1 puff INHALATION RT-BID 03/13/19 03/13/19 History [Trelegy Ellipta 100-62.5-25] Ipratropium [place] 0.06%Nasal 1 spray EA NOSTRIL DAILY 03/13/19 03/13/19 History [Atrovent Nasal 0.06%] Sertraline HCl [Zoloft] 100 mg PO DAILY 03/13/19 03/13/19 History Allergies Allergy/AdvReac Type Severity Reaction Status Date / Time Sulfa (Sulfonamide Allergy Rash/Hives Verified 03/13/19 09:01 Antibiotics) Physical Exam Vitals: Vital Signs Temp Pulse Pulse Resp BP BP Pulse Ox 03/13/19 11:40 97.5 F L 80 14 130/58 100 03/13/19 11:23 77 18 111/56 100 03/13/19 10:30 80 20 102/58 99 03/13/19 09:30 16 108/67 92 L 03/13/19 08:45 78 03/13/19 08:35 77 03/13/19 07:56 97.5 F L 85 20 120/74 94 L Intake and Output 03/12/19 03/13/19 03/13/19 22:59 06:59 14:59 Other: Weight 54.431 kg Thin and frail elderly female patient, nonacute this with her distress. Not using excessive muscle breathing. Head exam was generally normal. There was no scleral icterus or corneal arcus. Mucous membranes were moist. Neck was supple and without jugular venous distension, thyromegaly, or carotid bruits. Carotids were easily palpable bilaterally. There was no adenopathy. Lungs sounds are diminished and the patient has coarse crackles in the lung bases bilaterally more so on the right. The patient also has few scattered expiratory wheezes. The patient has severe thoracolumbar kyphoscoliosis. Cardiac exam revealed the PMI to be normally situated and sized. The rhythm was regular and no extrasystoles were noted during several minutes of auscultation. The first and second heart sounds were normal and physiologic splitting of the second heart sound was noted. There were no murmurs, rubs, clicks, or gallops. Abdominal exam revealed normal bowel sounds. The abdomen was soft, non-tender, a nd without masses, organomegaly, or appreciable enlargement of the abdominal aorta. Examination of the extremities revealed easily palpable radial, femoral and pedal pulses. There was no cyanosis, clubbing or edema. Examination of the skin revealed no evidence of significant rashes, suspicious appearing nevi or other concerning lesions. Neurologically awake and alert and there is no focal neurological deficits. Results - Laboratory Findings CBC and BMP: 03/13/19 08:15 03/13/19 08:15 ABG WBC 8.0 k/uL (3.8-10.6) 03/13/19 08:15 RBC 4.31 m/uL (3.80-5.40) 03/13/19 08:15 Hgb 10.7 gm/dL (11.4-16.0) L 03/13/19 08:15 Hct 34.8 % (34.0-46.0) 03/13/19 08:15 MCV 80.8 fL (80.0-100.0) 03/13/19 08:15 MCH 24.7 pg (25.0-35.0) L 03/13/19 08:15 MCHC 30.6 g/dL (31.0-37.0) L 03/13/19 08:15 RDW 17.8 % (11.5-15.5) H 03/13/19 08:15 Plt Count 299 k/uL (150-450) 03/13/19 08:15 Neutrophils % 72 % 03/13/19 08:15 Lymphocytes % 15 % 03/13/19 08:15 Monocytes % 5 % 03/13/19 08:15 Eosinophils % 6 % 03/13/19 08:15 Basophils % 1 % 03/13/19 08:15 Neutrophils # 5.8 k/uL (1.3-7.7) 03/13/19 08:15 Lymphocytes # 1.2 k/uL (1.0-4.8) 03/13/19 08:15 Monocytes # 0.4 k/uL (0-1.0) 03/13/19 08:15 Eosinophils # 0.4 k/uL (0-0.7) 03/13/19 08:15 Basophils # 0.1 k/uL (0-0.2) 03/13/19 08:15 Hypochromasia Marked 03/13/19 08:15 Anisocytosis Slight 03/13/19 08:15 Microcytosis Slight 03/13/19 08:15 PT 10.6 sec (9.0-12.0) 03/13/19 08:15 INR 1.0 (<1.2) 03/13/19 08:15 APTT 28.1 sec (22.0-30.0) 03/13/19 08:15 Sodium 138 mmol/L (137-145) 03/13/19 08:15 Potassium 3.9 mmol/L (3.5-5.1) 03/13/19 08:15 Chloride 100 mmol/L (98-107) 03/13/19 08:15 Carbon Dioxide 29 mmol/L (22-30) 03/13/19 08:15 Anion Gap 9 mmol/L 03/13/19 08:15 BUN 25 mg/dL (7-17) H 03/13/19 08:15 Creatinine 0.92 mg/dL (0.52-1.04) 03/13/19 08:15 Est GFR (CKD-EPI)AfAm 68 (>60 ml/min/1.73 sqM) 03/13/19 08:15 Est GFR (CKD-EPI)NonAf 59 (>60 ml/min/1.73 sqM) 03/13/19 08:15 Glucose 68 mg/dL (74-99) L 03/13/19 08:15 Calcium 9.1 mg/dL (8.4-10.2) 03/13/19 08:15 Magnesium 1.8 mg/dL (1.6-2.3) 03/13/19 08:15 Total Bilirubin 0.8 mg/dL (0.2-1.3) 03/13/19 08:15 AST 30 U/L (14-36) 03/13/19 08:15 ALT 20 U/L (9-52) 03/13/19 08:15 Alkaline Phosphatase 97 U/L (38-126) 03/13/19 08:15 Troponin I 0.016 ng/mL (0.000-0.034) 03/13/19 08:15 NT-Pro-B Natriuret Pep 1520 pg/mL 03/13/19 08:15 Total Protein 6.4 g/dL (6.3-8.2) 03/13/19 08:15 Albumin 3.4 g/dL (3.5-5.0) L 03/13/19 08:15 PT/INR, D-dimer PT 10.6 sec (9.0-12.0) 03/13/19 08:15 INR 1.0 (<1.2) 03/13/19 08:15 Abnormal lab findings: Abnormal Labs 03/13/19 03/13/19 08:15 08:15 Hgb 10.7 L MCH 24.7 L MCHC 30.6 L RDW 17.8 H BUN 25 H Glucose 68 L Albumin 3.4 L - Diagnostic Findings Chest x-ray: image reviewed Assessment and Plan Plan: 1 Acute on chronic shortness of breath likely on the basis of COPD/pulmonary fibrosis exacerbation. Chest x-ray shows chronic findings related to pulmonary fibrosis without any acute abnormalities. No signs of any pneumonia. No signs of any decompensated heart failure. Pulmonary embolism is highly doubtful. 2 chronic hypoxic respiratory failure patient is on oxygen at 2 and half liters per minute nasal cannula 3 bilateral pulmonary fibrosis with coarse crackles in fibrotic changes and honeycombing, consistent with IPF 4 COPD, Patient carries [id number] smoking history 5 large hiatal hernia 6 severe thoracolumbar kyphoscoliosis 7 Irritable bowel syndrome 8 history of atrial fibrillation currently patient is sinus rhythm and she is on long-term and to coagulation with Eliquis 9 a gram-negative septicemia secondary to cholangitis and biliary stones post- ERCP and extraction of kidney stone back in November. Plan Agree on the current management. Superimposed pneumonia is felt to be doubtful at this stage. The patient's primary status is stable and the findings are essentially chronic. The patient is subjected to IV Solu-Medrol. The patient has been maintained on Trelegy addition to oxygen on outpatient basis. She has a large hiatal hernia. Instructions need to be given to this patient regarding her feeding habits. Not a candidate for repair of the hiatal hernia. We'll continue to follow. She'll follow-up regarding her chronic lung disease
[2019-03-13 14:03] VITALS: BMI 21.9
[2019-03-13] MEDS: IPRATROPIUM-ALBUTEROL 3 ML NEB INHALATION SCH ×2 (17:24→20:54)
[2019-03-13] MEDS: methylPREDNISolone SOD SUCCI 125 MG/2 ML VIAL IV SCH ×2 (18:11→23:54)
[2019-03-13] MEDS: METOPROLOL TARTRATE 25 MG TAB PO SCH (21:03)
[2019-03-13] MEDS: APIXABAN 2.5 MG TABLET PO SCH (21:03)
[2019-03-14] MEDS: methylPREDNISolone SOD SUCCI 125 MG/2 ML VIAL IV SCH (06:02)
[2019-03-14] MEDS: IPRATROPIUM-ALBUTEROL 3 ML NEB INHALATION SCH ×4 (08:30→19:48)
[2019-03-14] MEDS: PANTOPRAZOLE 40 MG TABLET PO SCH (09:14)
[2019-03-14] MEDS: FUROSEMIDE 20 MG TAB PO SCH (09:14)
[2019-03-14] MEDS: CHOLECALCIFEROL 1,000 UNIT TAB PO SCH (09:14)
[2019-03-14] MEDS: SERTRALINE 100 MG TAB PO SCH (09:14)
[2019-03-14] MEDS: METOPROLOL TARTRATE 25 MG TAB PO SCH ×2 (09:14→21:21)
[2019-03-14] MEDS: APIXABAN 2.5 MG TABLET PO SCH ×2 (09:14→21:21)
[2019-03-14] MEDS: traMADol 50 MG TAB PO PRN ×2 (09:36→21:27)
--- NOTE | 2019-03-14 10:00 | P.PN ---
Subjective Patient sitting in chair at bedside. Lung volumes improved. Patient states she's having problems at home with ambulation and standing. Requesting evaluation for rehab was in Center in [place] in the past Objective - Vital Signs Vital signs: Vital Signs Temp 97.6 F 03/14/19 05:00 Pulse 80 03/14/19 08:40 Resp 20 03/14/19 05:00 BP 138/72 03/14/19 05:00 Pulse Ox 100 03/14/19 05:00 Intake & Output 03/13/19 03/14/19 03/14/19 18:59 06:59 18:59 Intake Total 540 300 Balance 540 300 Weight 54.431 kg Intake: Intake, IV Titration 300 Amount Azithromycin 500 mg In 250 Sodium Chloride 0.9% 250 ml @ 250 mls/hr IVPB ONCE STA Rx#:[id number] cefTRIAXone 1 gm In 50 Sodium Chloride 0.9% 50 ml @ 100 mls/hr IVPB ONCE STA Rx#:[id number] Oral 540 Other: Voiding Method Toilet # Voids 1 2 # Bowel Movements 2 - Constitutional General appearance: Present: mild distress - EENT Eyes: Present: PERRLA Ears: bilateral: normal - Neck Neck: Present: normal ROM - Respiratory Respiratory: bilateral: diminished - Cardiovascular Rhythm: irregularly irregular Abnormal Heart Sounds: Present: systolic murmur - Gastrointestinal General gastrointestinal: Present: soft - Integumentary Integumentary: Present: normal - Neurologic Neurologic: Present: CNII-XII intact - Musculoskeletal Musculoskeletal: Present: generalized weakness - Psychiatric Psychiatric: Present: A&O x's 3, appropriate affect, intact judgment & insight - Labs CBC & Chem 7: 03/13/19 08:15 03/13/19 08:15 Assessment and Plan Plan: Assessment Acute exacerbation of chronic COPD on home O2 Hypoxic respiratory failure chronic Dysphagia History of IBS Hiatal hernia Muscle weakness Pulmonary fibrosis History of intermittent atrial fibrillation Hypertension Osteoarthritis Anxiety/depression Plan Continue consultation with pulmonology Evaluation by physical therapy for possible placement to rehab center in [place] Swallow evaluation
--- NOTE | 2019-03-14 16:14 | P.PN ---
Subjective Progress Note Date: 03/14/19 Principal diagnosis: Dyspnea, COPD, pulmonary fibrosis Is an 83-year-old female patient with COPD and pulmonary fibrosis and chronic hypoxic respiratory failure maintained on oxygen at 2-1/2 L per minute nasal cannula. The patient also has severe kyphoscoliosis of the thoracolumbar spine, a large hiatal hernia with difficulties with swallowing and episodic reflux and she has been gradually losing weight. At other medical problems and comorbidities include chronic atrial fibrillation, hypertension, and chronic anxiety/depression. Patient was also in the hospital back in November 2018 for a biliary stone that was unable to be extracted by gastroenterology and based on that the patient was transferred to [facility] with the procedure was done successfully. At that time the patient was also septic with gram-negative bacillus. Following that she has been hospitalization back in January 2019 for an acute worsening of her chronic shortness of breath attributed to be related to exacerbation of COPD/pulmonary fibrosis. Her echocardiogram showed a moderate LVH with an ejection fraction of 55% and there is no significant valvular abnormalities During this current admission, the patient become progressively more weak, her oral intake has diminished and the patient has been losing weight. She has been having exertional dyspnea. No chest pain. No pleurisy. No hemoptysis. She has a chronic cough without any significant sputum production. No fever. No chills. The renal function is stable. No significant leukocytosis. Correlation profile is within normal limits. EKG showing a normal sinus rhythm. The chest x-ray is showing chronic parenchymal fibrotic changes without any acute cardio pulmonary process. On 03/14/2019 patient seen in follow-up on medical surgical floor. She is doing well, less dyspneic, no significant cough or congestion, no wheezing, lung sounds are positive for a few scattered rhonchi, otherwise good air entry noted bilaterally, no wheezes, vital signs are stable. On 2 L of oxygen her pulse ox of 96%, no fever or chills, she sits up in the chair, has been no new labs, no new chest x-ray today, her only complaint is that of mild back pain, she remains on IV steroids, 40 mg every 12 hours, nebulized bronchodilators, and antibiotics with Zithromax and Rocephin, no fever or chills Objective - Vital Signs Vital signs: Vital Signs Temp 97.6 F 03/14/19 13:50 Pulse 88 03/14/19 15:20 Resp 16 03/14/19 15:43 BP 116/66 03/14/19 13:50 Pulse Ox 96 03/14/19 13:50 Intake & Output 03/13/19 03/14/19 03/14/19 18:59 06:59 18:59 Intake Total 540 300 540 Balance 540 300 540 Weight 54.431 kg Intake: Intake, IV Titration 300 Amount Azithromycin 500 mg In 250 Sodium Chloride 0.9% 250 ml @ 250 mls/hr IVPB ONCE STA Rx#:[id number] cefTRIAXone 1 gm In 50 Sodium Chloride 0.9% 50 ml @ 100 mls/hr IVPB ONCE STA Rx#:[id number] Oral 540 540 Other: Voiding Method Toilet # Voids 1 2 3 # Bowel Movements 2 - Exam GENERAL EXAM: Alert, very pleasant, 83-year-old white female, sitting up in the chair, currently on 2 L of oxygen with a pulse ox of 96% comfortable in no apparent distress. HEAD: Normocephalic/atraumatic. EYES: Normal reaction of pupils, equal size. Conjunctiva pink, sclera white. NOSE: Clear with pink turbinates. THROAT: No erythema or exudates. NECK: No masses, no JVD, no thyroid enlargement, no adenopathy. CHEST: No chest wall deformity. Symmetrical expansion. LUNGS: Equal air entry with a few scattered rhonchi, no wheeze, rhonchi or dullness. CVS: Regular rate and rhythm, normal S1 and S2, no gallops, no murmurs, no rubs ABDOMEN: Soft, nontender. No hepatosplenomegaly, normal bowel sounds, no guarding or rigidity. EXTREMITIES: No clubbing, no edema, no cyanosis, 2+ pulses and upper and lower extremities. MUSCULOSKELETAL: Muscle strength and tone normal. SPINE: No scoliosis or deformity SKIN: No rashes CENTRAL NERVOUS SYSTEM: Alert and oriented -3. No focal deficits, tone is normal in all 4 extremities. PSYCHIATRIC: Alert and oriented -3. Appropriate affect. Intact judgment and insight. - Labs CBC & Chem 7: 03/13/19 08:15 03/13/19 08:15 Assessment and Plan Plan: Assessment: 1 Acute on chronic shortness of breath likely on the basis of COPD/pulmonary fibrosis exacerbation. Chest x-ray shows chronic findings related to pulmonary fibrosis without any acute abnormalities. No signs of any pneumonia. No signs of any decompensated heart failure. Pulmonary embolism is highly doubtful. 2 chronic hypoxic respiratory failure patient is on oxygen at 2 and half liters per minute nasal cannula 3 bilateral pulmonary fibrosis with coarse crackles in fibrotic changes and honeycombing, consistent with IPF 4 COPD, Patient carries [id number] smoking history 5 large hiatal hernia 6 severe thoracolumbar kyphoscoliosis 7 Irritable bowel syndrome 8 history of atrial fibrillation currently patient is sinus rhythm and she is on long-term and to coagulation with Eliquis 9 a gram-negative septicemia secondary to cholangitis and biliary stones post-ERCP and extraction of kidney stone back in November. Plan: Continue current medical treatment, continue IV steroids, antibiotics, and breathing treatments, patient is doing well, no acute events overnight, no fever no chills, breathing is improving, less bronchospastic on today's exam, increase activity as tolerated, possible discharge home in the next 24 hours I performed a history & physical examination of the patient and discussed their management with my nurse practitioner, Marisela Yee. I reviewed the nurse practitioner's note and agree with the documented findings and plan of care. Lung sounds are positive for a few scattered rhonchi. The findings and the impression was discussed with the patient. I attest to the documentation by the nurse practitioner. Time with Patient: Less than 30
[2019-03-14] MEDS: AZITHROMYCIN 500 MG TAB PO SCH (16:53)
[2019-03-14] MEDS: methylPREDNISolone SOD SUCCI 40 MG/ML 1 ML VIAL IV SCH (21:22)
[2019-03-15] MEDS: traMADol 50 MG TAB PO PRN (06:02)
[2019-03-15] MEDS: IPRATROPIUM-ALBUTEROL 3 ML NEB INHALATION SCH ×2 (07:25→11:16)
[2019-03-15] MEDS: CHOLECALCIFEROL 1,000 UNIT TAB PO SCH (09:38)
[2019-03-15] MEDS: methylPREDNISolone SOD SUCCI 40 MG/ML 1 ML VIAL IV SCH (09:38)
[2019-03-15] MEDS: FUROSEMIDE 20 MG TAB PO SCH (09:38)
[2019-03-15] MEDS: AZITHROMYCIN 500 MG TAB PO SCH (09:38)
[2019-03-15] MEDS: PANTOPRAZOLE 40 MG TABLET PO SCH (09:38)
[2019-03-15] MEDS: SERTRALINE 100 MG TAB PO SCH (09:38)
[2019-03-15] MEDS: APIXABAN 2.5 MG TABLET PO SCH (09:39)
[2019-03-15] MEDS: METOPROLOL TARTRATE 25 MG TAB PO SCH (09:39)
[2019-03-15 14:22] VITALS: BP 114/76; PULSE 87; RESP 16; TEMP 97.9
--- NOTE | 2019-03-15 17:47 | P.DS ---
Providers Date of admission: 03/14/19 12:52 Expected date of discharge: 03/15/19 Attending physician: Candido Chappell Consults: 03/13/19 10:17 Consult Physician Routine Consulting Provider: Demian Poon Consult Reason/Comments: Dyspnea, pulmonary fibrosis Do you want consulting provider notified?: Yes Primary care physician: Candido Chappell Hospital Course: 83-year-old female was admitted to the emergency room with complaints of shortness of breath increasing last 2 days. Patient was evaluated by pulmonology and stabilized and cleared for discharge Assessment Acute and chronic COPD with exacerbation home O2 Hypoxic respiratory failure chronic Dysphasia IBS Hiatal hernia Weakness Pulmonary fibrosis History of intermittent atrial fibrillation Hypertension Osteoarthritis Anxiety/depression Plan Follow-up with family physician Dr. Candido Chappell and pulmonology Patient Condition at Discharge: Good Plan - Discharge Summary Discharge Rx Participant: No New Discharge Prescriptions: New predniSONE 10 mg PO DAILY #40 tab Azithromycin [Zithromax] 500 mg PO DAILY #3 tab Continue Omeprazole 20 mg PO DAILY Cholecalciferol [Vitamin D3 (25 Mcg = 1000 Iu)] 1,000 unit PO DAILY traMADol HCL [Ultram] 50 mg PO Q6HR PRN PRN Reason: Pain Metoprolol Tartrate [Lopressor] 25 mg PO BID Apixaban [Eliquis] 2.5 mg PO BID Furosemide [Lasix] 20 mg PO DAILY #30 tab Sertraline HCl [Zoloft] 100 mg PO DAILY Ipratropium [place] 0.06%Nasal [Atrovent Nasal 0.06%] 1 spray EA NOSTRIL DAILY Albuterol Inhaler [Ventolin Hfa Inhaler] 2 puff INHALATION RT-Q6H PRN PRN Reason: Shortness Of Breath Fluticasone/Umeclidin/Vilanter [Trelegy Ellipta 100-62.5-25] 1 puff INHALATION RT-BID Discharge Medication List Cholecalciferol [Vitamin D3 (25 Mcg = 1000 Iu)] 1,000 unit PO DAILY 01/14/15 [History] Omeprazole 20 mg PO DAILY 01/14/15 [History] traMADol HCL [Ultram] 50 mg PO Q6HR PRN 09/05/16 [History] Apixaban [Eliquis] 2.5 mg PO BID 01/23/19 [History] Metoprolol Tartrate [Lopressor] 25 mg PO BID 01/23/19 [History] Furosemide [Lasix] 20 mg PO DAILY #30 tab 01/28/19 [Rx] Albuterol Inhaler [Ventolin Hfa Inhaler] 2 puff INHALATION RT-Q6H PRN 03/13/19 [History] Fluticasone/Umeclidin/Vilanter [Trelegy Ellipta 100-62.5-25] 1 puff INHALATION RT-BID 03/13/19 [History] Ipratropium [place] 0.06%Nasal [Atrovent Nasal 0.06%] 1 spray EA NOSTRIL DAILY 03/13/19 [History] Sertraline HCl [Zoloft] 100 mg PO DAILY 03/13/19 [History] Azithromycin [Zithromax] 500 mg PO DAILY #3 tab 03/15/19 [Rx] predniSONE 10 mg PO DAILY #40 tab 03/15/19 [Rx] Follow up Appointment(s)/Referral(s): Candido Chappell MD [Primary Care Provider] - 03/20/19 10:40 am [facility]FF] - Emily Tim MD [STAFF PHYSICIAN] - 03/30/19 2:45 pm Patient Instructions/Handouts: COPD (Chronic Obstructive Pulmonary Disease) (DC) Activity/Diet/Wound Care/Special Instructions: continue Home O2 activity as tolerated heart healthy diet as tolerated Discharge Disposition: HOME WITH HOME HEALTH SERVICES
== END 2019-03-15 14:52 | disposition home health service (06) | DRG 191 ==
LOC: EC 07:54 → 4MS4W 10:21 → OBSVTOIN 03-14 12:52
PROVIDERS: ADMIT Family Medicine; ATTEND Family Medicine
DX: J44.1 Chronic obstructive pulmonary disease with (acute) exacerbation (principal); I48.20 Chronic atrial fibrillation, unspecified; J96.11 Chronic respiratory failure with hypoxia; F32.9 Major depressive disorder, single episode, unspecified; F41.9 Anxiety disorder, unspecified; I10 Essential (primary) hypertension; I48.0 Paroxysmal atrial fibrillation; J84.10 Pulmonary fibrosis, unspecified; K21.9 Gastro-esophageal reflux disease without esophagitis; K44.9 Diaphragmatic hernia without obstruction or gangrene; K58.9 Irritable bowel syndrome, unspecified; M19.90 Unspecified osteoarthritis, unspecified site; M41.9 Scoliosis, unspecified; R13.10 Dysphagia, unspecified; R47.02 Dysphasia; Z79.01 Long term (current) use of anticoagulants; Z79.899 Other long term (current) drug therapy; Z82.3 Family history of stroke; Z82.49 Family history of ischemic heart disease and other diseases of the circulatory system; Z83.3 Family history of diabetes mellitus; Z87.01 Personal history of pneumonia (recurrent); Z87.442 Personal history of urinary calculi; Z87.891 Personal history of nicotine dependence; Z96.651 Presence of right artificial knee joint; Z99.81 Dependence on supplemental oxygen; J30.2 Other seasonal allergic rhinitis; Z88.2 Allergy status to sulfonamides; G89.29 Other chronic pain; Z87.440 Personal history of urinary (tract) infections
CPT/HCPCS: 36415; 71046; 80053; 83735; 83880; 84484; 85025; 85610; 85730; 90686; 93005; 94640; 96374; 99285

== ENCOUNTER 2019-04-16 23:36 | Inpatient (IN) | payer MEDICARE, BC ==
[2019-04-16] MEDS ORDERED: SODIUM CHLORIDE 0.9% 1,000 ML IV STA (23:42)
--- NOTE | 2019-04-16 23:44 | ED ---
Weakness HPI - General Stated complaint: weakness Time Seen by Provider: 04/16/19 23:41 Source: RN notes reviewed, old records reviewed Limitations: no limitations - History of Present Illness Initial comments: This is a 83 year old female. She presents for evaluation of weakness and not feeling well for a few days now. No nausea no vomiting no diarrhea. She has a chronic pain chronic back pain and is also complaining of generalized body aches. Patient also complains of overall generalized illness, nothing all but denies fevers. No recent change in medications. She does not know of any sick contacts or is unsure most recent hospitalization MD Complaint: generalized weakness, lack of energy -: days(s) Location: generalized Severity: moderate Severity scale (1-10): 5 Quality: tingling Consistency: constant Improves with: none Worsens with: none Context: recent illness, history of similar Associated Symptoms: loss of appetite, nausea/vomiting - Related Data Home Medications Medication Instructions Recorded Confirmed Cholecalciferol [Vitamin D3 (25 1,000 unit PO DAILY 01/14/15 03/13/19 Mcg = 1000 Iu)] Omeprazole 20 mg PO DAILY 01/14/15 03/13/19 traMADol HCL [Ultram] 50 mg PO Q6HR PRN 09/05/16 03/13/19 Apixaban [Eliquis] 2.5 mg PO BID 01/23/19 03/13/19 Metoprolol Tartrate [Lopressor] 25 mg PO BID 01/23/19 03/13/19 Albuterol Inhaler [Ventolin Hfa 2 puff INHALATION RT-Q6H PRN 03/13/19 03/13/19 Inhaler] Fluticasone/Umeclidin/Vilanter 1 puff INHALATION RT-BID 03/13/19 03/13/19 [Trelegy Ellipta 100-62.5-25] Ipratropium [place] 0.06%Nasal 1 spray EA NOSTRIL DAILY 03/13/19 03/13/19 [Atrovent Nasal 0.06%] Sertraline HCl [Zoloft] 100 mg PO DAILY 03/13/19 03/13/19 Previous Rx's Medication Instructions Recorded Furosemide [Lasix] 20 mg PO DAILY #30 tab 01/28/19 Azithromycin [Zithromax] 500 mg PO DAILY #3 tab 03/15/19 predniSONE 10 mg PO DAILY #40 tab 03/15/19 Allergies Allergy/AdvReac Type Severity Reaction Status Date / Time Sulfa (Sulfonamide Allergy Rash/Hives Verified 04/16/19 23:49 Antibiotics) Review of Systems ROS Statement: Those systems with pertinent positive or pertinent negative responses have been documented in the HPI. ROS Other: All systems not noted in ROS Statement are negative. Past Medical History Past Medical History: Atrial Fibrillation, Chest Pain / Angina, COPD, GERD/Reflux, Hypertension, Osteoarthritis (OA), Pneumonia Additional Past Medical History / Comment(s): Paroxysmal Afib, echo 01/2019 showed EF 50-55%, chronic respiratory failure with home oxygen at 2.5L/NC ATC, pulmonary fibrosis, chronic entire back pain, scoliosis, DDD, IBS, UTIs, seasonal allergies. History of Any Multi-Drug Resistant Organisms: None Reported Past Surgical History: Cholecystectomy, Joint Replacement Additional Past Surgical History / Comment(s): 11/2018 biliary stent at [facility], ovarian cyst removed, right knee replacement, colonoscopy-normal. Past Anesthesia/Blood Transfusion Reactions: No Reported Reaction Additional Past Anesthesia/Blood Transfusion Reaction / Comment(s): Pt has never recieved blood. Smoking Status: Former smoker - Past Family History Sister(s) Family Medical History: Diabetes Mellitus Father Family Medical History: Congestive Heart Failure (CHF), Myocardial Infarction ([place]) Additional Family Medical History / Comment(s): Father of CHF at 68yrs of age. Mother Family Medical History: CVA/TIA Additional Family Medical History / Comment(s): Mother of a massive CVA and of it at the age of 76yrs. General Exam General appearance: alert, in no apparent distress, anxious, lethargic, cachectic Head exam: Present: atraumatic, normocephalic, normal inspection Eye exam: Present: normal appearance, PERRL, EOMI. Absent: scleral icterus, conjunctival injection, periorbital swelling ENT exam: Present: normal exam, mucous membranes moist Neck exam: Present: normal inspection. Absent: tenderness, meningismus, lym phadenopathy Respiratory exam: Present: normal lung sounds bilaterally. Absent: respiratory distress, wheezes, rales, rhonchi, stridor Cardiovascular Exam: Present: normal rhythm, tachycardia, normal heart sounds. Absent: systolic murmur, diastolic murmur, rubs, gallop, clicks GI/Abdominal exam: Present: soft, normal bowel sounds. Absent: distended, tenderness, guarding, rebound, rigid Extremities exam: Present: normal inspection, full ROM, normal capillary refill. Absent: tenderness, pedal edema, joint swelling, calf tenderness Back exam: Present: normal inspection Neurological exam: Present: alert, oriented X3, CN II-XII intact Psychiatric exam: Present: normal affect, normal mood Skin exam: Present: warm, dry, intact, normal color. Absent: rash Course Vital Signs 04/16/19 23:46 Temperature 98.3 F Pulse Rate 107 H Respiratory 20 Rate Blood Pressure 101/61 O2 Sat by Pulse 97 Oximetry - Reevaluation(s) Reevaluation #1: 04/17/19 00:35 medical record is reviewed EKG Findings - EKG Comments: EKG Findings:: EKG shows sinus tachycardia rate of 119, by mouth 160, QRS 80, QTC 452 Medical Decision Making - Medical Decision Making Normal female de-air present with weakness persistent nausea and vomiting dehydration. Will admit for fluid resuscitation, symptom management and pain control - Lab Data Result diagrams: 04/17/19 00:15 04/17/19 00:15 Lab Results 04/17/19 04/17/19 04/17/19 Range/Units 00:15 00:15 00:15 WBC 4.2 (3.8-10.6) k/uL RBC 4.94 (3.80-5.40) m/uL Hgb 12.3 (11.4-16.0) gm/dL Hct 39.4 (34.0-46.0) % MCV 79.8 L (80.0-100.0) fL MCH 24.8 L (25.0-35.0) pg MCHC 31.1 (31.0-37.0) g/dL RDW 19.2 H (11.5-15.5) % Plt Count 235 (150-450) k/uL Neutrophils % 92 % Lymphocytes % 5 % Monocytes % 1 % Eosinophils % 1 % Basophils % 0 % Neutrophils # 3.9 (1.3-7.7) k/uL Lymphocytes # 0.2 L (1.0-4.8) k/uL Monocytes # 0.1 (0-1.0) k/uL Eosinophils # 0.1 (0-0.7) k/uL Basophils # 0.0 (0-0.2) k/uL Hypochromasia Slight Anisocytosis Slight Microcytosis Slight PT (9.0-12.0) sec INR (<1.2) APTT (22.0-30.0) sec Sodium 141 (137-145) mmol/L Potassium 3.6 (3.5-5.1) mmol/L Chloride 104 (98-107) mmol/L Carbon Dioxide 31 H (22-30) mmol/L Anion Gap 6 mmol/L BUN 22 H (7-17) mg/dL Creatinine 0.99 (0.52-1.04) mg/dL Est GFR (CKD-EPI)AfAm 62 (>60 ml/min/1.73 sqM) Est GFR (CKD-EPI)NonAf 54 (>60 ml/min/1.73 sqM) Glucose 85 (74-99) mg/dL Plasma Lactic Acid Kenny 1.4 (0.7-2.0) mmol/L Calcium 9.2 (8.4-10.2) mg/dL Phosphorus 2.6 (2.5-4.5) mg/dL Magnesium 1.6 (1.6-2.3) mg/dL Total Bilirubin 0.8 (0.2-1.3) mg/dL AST 29 (14-36) U/L ALT 22 (9-52) U/L Alkaline Phosphatase 109 (38-126) U/L Troponin I (0.000-0.034) ng/mL NT-Pro-B Natriuret Pep pg/mL Total Protein 6.3 (6.3-8.2) g/dL Albumin 3.5 (3.5-5.0) g/dL TSH 2.210 (0.465-4.680) mIU/L 04/17/19 04/17/19 04/17/19 Range/Units 00:15 00:15 00:15 WBC (3.8-10.6) k/uL RBC (3.80-5.40) m/uL Hgb (11.4-16.0) gm/dL Hct (34.0-46.0) % MCV (80.0-100.0) fL MCH (25.0-35.0) pg MCHC (31.0-37.0) g/dL RDW (11.5-15.5) % Plt Count (150-450) k/uL Neutrophils % % Lymphocytes % % Monocytes % % Eosinophils % % Basophils % % Neutrophils # (1.3-7.7) k/uL Lymphocytes # (1.0-4.8) k/uL Monocytes # (0-1.0) k/uL Eosinophils # (0-0.7) k/uL Basophils # (0-0.2) k/uL Hypochromasia Anisocytosis Microcytosis PT 10.9 (9.0-12.0) sec INR 1.0 (<1.2) APTT 22.4 (22.0-30.0) sec Sodium (137-145) mmol/L Potassium (3.5-5.1) mmol/L Chloride (98-107) mmol/L Carbon Dioxide (22-30) mmol/L Anion Gap mmol/L BUN (7-17) mg/dL Creatinine (0.52-1.04) mg/dL Est GFR (CKD-EPI)AfAm (>60 ml/min/1.73 sqM) Est GFR (CKD-EPI)NonAf (>60 ml/min/1.73 sqM) Glucose (74-99) mg/dL Plasma Lactic Acid Kenny (0.7-2.0) mmol/L Calcium (8.4-10.2) mg/dL Phosphorus (2.5-4.5) mg/dL Magnesium (1.6-2.3) mg/dL Total Bilirubin (0.2-1.3) mg/dL AST (14-36) U/L ALT (9-52) U/L Alkaline Phosphatase (38-126) U/L Troponin I 0.017 (0.000-0.034) ng/mL NT-Pro-B Natriuret Pep 1130 pg/mL Total Protein (6.3-8.2) g/dL Albumin (3.5-5.0) g/dL TSH (0.465-4.680) mIU/L - Radiology Data Radiology results: report reviewed (Chest x-ray is negative for acute disease), image reviewed Disposition Clinical Impression: Dehydration, Nausea & vomiting, Weakness Disposition: ADMITTED IP TO THIS [facility] Condition: Fair Is patient prescribed a controlled substance at d/c from ED?: No Referrals: Candiod Chappell MD [Primary Care Provider] - 1-2 days
--- NOTE | 2019-04-17 00:03 | XR ---
EXAMINATION TYPE: XR chest 2V DATE OF EXAM: 04/16/2019 COMPARISON: 03/13/2019 HISTORY: Weakness TECHNIQUE: Frontal and lateral views of the chest are obtained. FINDINGS: There is general coarsening interstitial density throughout the lungs. Heart size is jovita l. There is no heart failure. Thoracic aorta is atheromatous. There are no hilar masses. There is no pleural effusion. IMPRESSION: Moderate pulmonary fibrosis. Hiatal hernia noted. No significant change.
[2019-04-17 00:37] LABS: Anisocytosis Slight; Basophils % (A) 0 %; Eosinophils # (A) 0.1 k/uL (0-0.7); Eosinophils % (A) 1 %; HCT 39.4 % (34.0-46.0); HGB 12.3 gm/dL (11.4-16.0); Hypochromasia Slight; Lymphocytes # (A) 0.2 k/uL (1.0-4.8); Lymphocytes % (A) 5 %; MCH 24.8 pg (25.0-35.0); MCHC 31.1 g/dL (31.0-37.0); MCV 79.8 fL (80.0-100.0); Mean Platelet Volume 7.7; Microcytosis Slight; Monocytes # (A) 0.1 k/uL (0-1.0); Monocytes % (A) 1 %; Neutrophils # (A) 3.9 k/uL (1.3-7.7); Neutrophils % (A) 92 %; Platelet Count 235 k/uL (150-450); RBC 4.94 m/uL (3.80-5.40); RDW 19.2 % (11.5-15.5); WBC 4.2 k/uL (3.8-10.6)
[2019-04-17 00:43] LABS: Albumin 3.5 g/dL (3.5-5.0); Calcium 9.2 mg/dL (8.4-10.2); Magnesium 1.6 mg/dL (1.6-2.3); Partial Thromboplastin Time 22.4 sec (22.0-30.0); Phosphorus 2.6 mg/dL (2.5-4.5); Potassium 3.6 mmol/L (3.5-5.1); Prothrombin Time 10.9 sec (9.0-12.0); Total Bilirubin 0.8 mg/dL (0.2-1.3); Total Protein 6.3 g/dL (6.3-8.2)
[2019-04-17] MEDS ORDERED: ASPIRIN 81 MG PO STA (01:24)
[2019-04-17] MEDS: SODIUM CHLORIDE 0.9% 1,000 ML IV SCH ×3 (02:37→22:47)
--- NOTE | 2019-04-17 11:31 | P.HPIM ---
History of Present Illness 83-year-old female presented to the emergency room with complaints of poor appetite weakness constipation. States she was with her son and states that her son is not well and not happy in this situation she's in. Have requested family welfare social work professor OT PT for evaluation for possible rehab placement. Patient has history of atrial fibrillation paroxysmal COPD with chronic respiratory failure from fibrosis. GERD hypertension osteoarthritis Review of Systems Constitutional: Reports malaise, Reports weakness Gastrointestinal: Reports constipation, Reports loss of appetite, Reports nausea, Reports vomiting Past Medical History Past Medical History: Atrial Fibrillation, Chest Pain / Angina, COPD, GERD/Reflux, Hypertension, Osteoarthritis (OA), Pneumonia Additional Past Medical History / Comment(s): Paroxysmal Afib, echo 01/2019 showed EF 50-55%, chronic respiratory failure with home oxygen at 2.5L/NC ATC, pulmonary fibrosis, chronic entire back pain, scoliosis, DDD, IBS, UTIs, seasonal allergies. History of Any Multi-Drug Resistant Organisms: None Reported Past Surgical History: Cholecystectomy, Joint Replacement Additional Past Surgical History / Comment(s): 11/[address] [facility], ovarian cyst removed, right knee replacement, colonoscopy-normal. Past Anesthesia/Blood Transfusion Reactions: No Reported Reaction Additional Past Anesthesia/Blood Transfusion Reaction / Comment(s): Pt has never recieved blood. Past Psychological History: Anxiety, Depression Additional Psychological History / Comment(s): Pt resides with her son. She is independent. She has home oxygen and a nebulizer. She uses a walker or cane prn. She has Residential home care. Smoking Status: Former smoker Past Alcohol Use History: None Reported Additional Past Alcohol Use History / Comment(s): Pt smoked less than a ppd for about 15-20 yrs. She quit smoking in 1987. Past Drug Use History: None Reported - Past Family History Sister(s) Family Medical History: Diabetes Mellitus Father Family Medical History: Congestive Heart Failure (CHF), Myocardial Infarction (VT) Additional Family Medical History / Comment(s): Father of CHF at 68yrs of age. Mother Family Medical History: CVA/TIA Additional Family Medical History / Comment(s): Mother of a massive CVA and of it at the age of 76yrs. Medications and Allergies Home Medications Medication Instructions Recorded Confirmed Type Omeprazole 20 mg PO DAILY 01/14/15 04/17/19 History traMADol HCL [Ultram] 50 mg PO Q6HR PRN 09/05/16 04/17/19 History Apixaban [Eliquis] 2.5 mg PO BID 01/23/19 04/17/19 History Metoprolol Tartrate [Lopressor] 25 mg PO BID 01/23/19 04/17/19 History Furosemide [Lasix] 20 mg PO DAILY #30 tab 01/28/19 04/17/19 Rx Albuterol Inhaler [Ventolin Hfa 2 puff INHALATION RT-Q6H PRN 03/13/19 04/17/19 History Inhaler] Ipratropium [place] 0.06%Nasal 1 spray EA NOSTRIL DAILY 03/13/19 04/17/19 History [Atrovent Nasal 0.06%] Sertraline HCl [Zoloft] 100 mg PO DAILY 03/13/19 04/17/19 History Ferrous Sulfate [Feosol] 325 mg PO DAILY 04/17/19 04/17/19 History Nystatin 100,000 Unit/ml Susp 5 ml PO QID 04/17/19 04/17/19 History [Mycostatin Oral Susp] Allergies Allergy/AdvReac Type Severity Reaction Status Date / Time Sulfa (Sulfonamide Allergy Rash/Hives Verified 04/17/19 08:10 Antibiotics) Physical Exam Vitals: Vital Signs Temp Pulse Pulse Resp BP BP Pulse Ox 04/17/19 07:10 97.5 F L 95 18 97/60 94 L 04/17/19 02:29 97.7 F 87 22 124/76 90 L 04/17/19 01:44 98.4 F 89 20 102/51 100 04/16/19 23:46 98.3 F 107 H 20 101/61 97 Intake and Output 04/16/19 04/17/19 04/17/19 22:59 06:59 14:59 Other: Voiding Method Toilet Toilet # Voids 1 # Bowel Movements 1 Weight 50.349 kg - Constitutional General appearance: mild distress, thin - EENT Eyes: PERRLA Ears: bilateral: normal - Neck Neck: normal ROM - Respiratory Respiratory: bilateral: diminished - Cardiovascular Rhythm: irregularly irregular Abnormal Heart Sounds: systolic murmur - Gastrointestinal General gastrointestinal: soft - Integumentary Integumentary: normal - Neurologic Neurologic: CNII-XII intact - Musculoskeletal Musculoskeletal: generalized weakness - Psychiatric Psychiatric: A&O x's 3, appropriate affect, intact judgment & insight Results CBC & Chem 7: 04/17/19 00:15 04/17/19 00:15 Labs: Abnormal Lab Results - Last 24 Hours (Table) 04/17/19 04/17/19 Range/Units 00:15 00:15 MCV 79.8 L (80.0-100.0) fL MCH 24.8 L (25.0-35.0) pg RDW 19.2 H (11.5-15.5) % Lymphocytes # 0.2 L (1.0-4.8) k/uL Carbon Dioxide 31 H (22-30) mmol/L BUN 22 H (7-17) mg/dL Chest x-ray: report reviewed (Pulmonary fibrosis unchanged) Thrombosis Risk Factor Assmnt - Choose All That Apply Other Risk Factors: Yes Each Risk Factor Represents 3 Points: Age 75 years or older Thrombosis Risk Factor Assessment Total Risk Factor Score: 3 Thrombosis Risk Factor Assessment Level: Moderate Risk Assessment and Plan Plan: Assessment Dehydration nausea vomiting Weakness generalized Atrial fibrillation paroxysmal controlled rate COPD with chronic Crestor he failure pulmonary fibrosis GERD Hypertension Osteoarthritis Plan Needs urinalysis Consult family welfare social work professor PT OT for possible rehab placement
[2019-04-17 13:36] VITALS: BMI 20.2
[2019-04-17 14:36] LABS: Appearance,Urine Clear (Clear); Bilirubin,Urine Negative (Negative); Blood,Urine Negative (Negative); Color,Urine Yellow; Glucose,Urine (UA) Negative (Negative); Hyaline Casts,Urine 3 /lpf (0-2); Ketones,Urine Negative (Negative); Leukocyte Esterase,Urine Trace (Negative); Mucus,Urine Few /hpf; Nitrite,Urine Negative (Negative); Protein,Urine Trace (Negative); RBC,Urine 2 /hpf (0-5); Urobilinogen,Urine <2.0 mg/dL (<2.0); WBC,Urine 4 /hpf (0-5)
[2019-04-17] MEDS: traMADol 50 MG TAB PO PRN (15:16)
[2019-04-17] MEDS: NYSTATIN 100,000 UNIT/ML SUSP 500,000 UNIT/5 ML CUP PO SCH ×3 (16:18→22:47)
[2019-04-17] MEDS: METOPROLOL TARTRATE 25 MG TAB PO SCH (20:19)
[2019-04-17] MEDS: APIXABAN 2.5 MG TABLET PO SCH (20:19)
[2019-04-18] MEDS: traMADol 50 MG TAB PO PRN ×3 (01:22→23:49)
[2019-04-18 06:23] LABS: Cholesterol 150 mg/dL (<200); HDL Cholesterol 36 mg/dL (40-60); LDL Cholesterol,Calculated 96 mg/dL (0-99); Triglycerides 91 mg/dL (<150)
[2019-04-18] MEDS: SODIUM CHLORIDE 0.9% 1,000 ML IV SCH ×3 (07:45→23:05)
[2019-04-18] MEDS: IPRATROPIUM BROMIDE 0.06% NASAL SPRAY (15 ML) EA NOSTRIL SCH (08:35)
[2019-04-18] MEDS: ASPIRIN 325 MG TAB PO SCH (08:35)
[2019-04-18] MEDS: FERROUS SULFATE 325 MG TAB PO SCH (08:35)
[2019-04-18] MEDS: METOPROLOL TARTRATE 25 MG TAB PO SCH ×2 (08:35→23:02)
[2019-04-18] MEDS: FUROSEMIDE 20 MG TAB PO SCH (08:35)
[2019-04-18] MEDS: PANTOPRAZOLE 40 MG TABLET PO SCH (08:35)
[2019-04-18] MEDS: NYSTATIN 100,000 UNIT/ML SUSP 500,000 UNIT/5 ML CUP PO SCH ×4 (08:36→23:04)
[2019-04-18] MEDS: APIXABAN 2.5 MG TABLET PO SCH ×2 (08:36→23:04)
[2019-04-18] MEDS: SERTRALINE 100 MG TAB PO SCH (08:36)
--- NOTE | 2019-04-18 10:17 | P.PN ---
Subjective Placement discussed with case management manager. Patient states she's not thriving at home would like to be in no rehab and possible placement in extended care facility Objective - Vital Signs Vital signs: Vital Signs Temp 98.3 F 04/18/19 07:55 Pulse 62 04/18/19 07:55 Resp 18 04/18/19 07:55 BP 131/65 04/18/19 07:55 Pulse Ox 100 04/18/19 07:55 Intake & Output 04/17/19 04/18/19 04/18/19 18:59 06:59 18:59 Intake Total 1040 224 Output Total 400 500 Balance 640 -276 Weight 50.349 kg Intake: Intake, IV Titration 800 Amount Sodium Chloride 0.9% 1, 800 000 ml @ 100 mls/hr IV . Q10H ALLIE Rx#:[id number] Oral 240 224 Output: Urine 400 500 Other: Voiding Method Toilet Indwelling Catheter Indwelling Catheter # Voids 1 # Bowel Movements 1 - Constitutional General appearance: Present: mild distress - EENT Eyes: Present: PERRLA Ears: bilateral: normal - Neck Neck: Present: normal ROM - Respiratory Respiratory: bilateral: CTA - Cardiovascular Rhythm: regular Abnormal Heart Sounds: Present: systolic murmur - Gastrointestinal General gastrointestinal: Present: soft - Integumentary Integumentary: Present: normal - Neurologic Neurologic: Present: CNII-XII intact - Musculoskeletal Musculoskeletal: Present: generalized weakness - Psychiatric Psychiatric: Present: A&O x's 3, appropriate affect, intact judgment & insight - Labs CBC & Chem 7: 04/17/19 00:15 04/17/19 00:15 Labs: Abnormal Lab Results - Last 24 Hours (Table) 04/16/19 04/18/19 Range/Units 14:09 05:34 HDL Cholesterol 36 L (40-60) mg/dL Urine Protein Trace H (Negative) Ur Leukocyte Esterase Trace H (Negative) Hyaline Casts 3 H (0-2) /lpf Urine Mucus Few H (None) /hpf Assessment and Plan Plan: Assessment Dehydration Nausea vomiting resolved Generalized weakness Urinary tract infection with urinary retention Atrial fib paroxysmal controlled rate COPD chronic respiratory failure pulmonary fibrosis GERD Hypertension Osteoarthritis Plan Treat urinary tract infection Evaluation for rehab and possible extended care facility placement
[2019-04-18] MEDS ORDERED: ONDANSETRON 4 MG/2 ML VIAL IVP PRN (15:10)
--- NOTE | 2019-04-18 16:23 | CT ---
EXAMINATION TYPE: CT chest angio for PE DATE OF EXAM: 04/18/2019 COMPARISON: 01/23/2019 HISTORY: elevated d-dimer CT DLP: 241.2 mGycm CONTRAST: CT chest with contrast and 3D reconstruction with MIP imaging is performed with IV Contrast, patient injected with 80 mL of Isovue 370. Contrast-enhanced CT of the chest was performed through the course of the pulmonary arteries with kaylie g and mediastinal window settings submitted. 3D reconstruction with MIP imaging was also performed. PULMONARY ARTERIES: The pulmonary arteries and their major tributaries are patent. I do not see deven dence for sizable filling defect to suggest pulmonary embolic process. LUNGS small bilateral pleural effusions. Scattered fibrosis bilaterally moderate in degree. No distin ct mass or nodule. No consolidation at this time. MEDIASTINUM: Thoracic aorta is of normal caliber,however, evaluation is limited given timing of the contrast bolus. If there is concern for thoracic aortic pathology consider NAILA. Correlate clinicall y . The heart is enlarged. No evidence for mediastinal mass. No mediastinal lymph nodes greater scott n 1cm. HILAR STRUCTURES: No evidence for mass. No hilar lymph nodes greater than 1 cm. UPPER ABDOMEN: The stomach is virtually entirely intrathoracic in location. IMPRESSION: 1. No evidence for Pulmonary embolism at this time.
--- NOTE | 2019-04-18 16:33 | P.CNPUL ---
History of Present Illness Consult date: 04/18/19 Reason for consult: dyspnea Chief complaint: Dyspnea, chills, acute on chronic hypoxemia History of present illness: This is a 83-year-old white female patient with past medical history of IPF with chronic hypoxemic respiratory failure on the 2-1/2 L of oxygen per nasal cannula, severe kyphoscoliosis of thoracolumbar spine, a large hiatal hernia, chronic dysphagia related to large hiatal hernia, chronic atrial fibrillation on Eliquis, hypertension, chronic anxiety/depression, and COPD. We had recently seen the patient in consultation in March,, for acute exacerbation of COPD/pulmonary fibrosis. Patient had improved, and was discharged home. On 04/16/2019 patient presented to the emergency department or evaluation of increased weakness, sudden onset shortness of breath, hypoxemia with a pulse ox of 70% on a usual amount of oxygen, she had not been feeling well for a few days, increasingly weak, and patient had a low-grade fever on presentation. Complained of generalized body aches, loss appetite, nausea, vomiting and dehydration. Chest x-ray was completed showing moderate pulmonary fibrosis, hiatal hernia, no significant change from her previous admission in March 2019. Lab work showed a white blood cell count of 4.2, hemoglobin of 12.3, INR of 1.0, d-dimer was 2.76, and CTA chest has been ordered and is pending at this time, electrolytes were unremarkable with the exception of CO2 which is at 31, BUN is 22, creatinine 0.99, sets of troponins were negative, proBNP was 1130. Urinalysis showed trace leuks, but no significant white blood cell count or RBCs, no clear evidence of urinary tract infection. Patient has a fever this afternoon, with a temp of 100.2F, she is on 3 L of oxygen her pulse ox of 95%, he is hemodynamically stable, she is short of breath at rest, no acute distress. Review of Systems All systems: negative Constitutional: Denies chills, Denies fever Eyes: denies blurred vision, denies pain Ears, nose, mouth and throat: Denies headache, Denies sore throat Cardiovascular: Denies chest pain, Denies shortness of breath Respiratory: Reports dyspnea, Reports home oxygen, Denies cough Gastrointestinal: Denies abdominal pain, Denies diarrhea, Denies nausea, Denies vomiting Genitourinary: Denies dysuria, Denies hematuria Musculoskeletal: Denies myalgias Integumentary: Denies pruritus, Denies rash Neurological: Denies numbness, Denies weakness Psychiatric: Denies anxiety, Denies depression Endocrine: Denies fatigue, Denies weight change Past Medical History Past Medical History: Atrial Fibrillation, Chest Pain / Angina, COPD, GERD/Reflux, Hypertension, Osteoarthritis (OA), Pneumonia Additional Past Medical History / Comment(s): Paroxysmal Afib, echo 01/2019 showed EF 50-55%, chronic respiratory failure with home oxygen at 2.5L/NC ATC, pulmonary fibrosis, chronic entire back pain, scoliosis, DDD, IBS, UTIs, seasonal allergies. History of Any Multi-Drug Resistant Organisms: None Reported Past Surgical History: Cholecystectomy, Joint Replacement Additional Past Surgical History / Comment(s): 11/2018 biliary stent at [facility], ovarian cyst removed, right knee replacement, colonoscopy-normal. Past Anesthesia/Blood Transfusion Reactions: No Reported Reaction Additional Past Anesthesia/Blood Transfusion Reaction / Comment(s): Pt has never recieved blood. Past Psychological History: Anxiety, Depression Additional Psychological History / Comment(s): Pt resides with her son. She is independent. She has home oxygen and a nebulizer. She uses a walker or cane p rn. She has Residential home care. Smoking Status: Former smoker Past Alcohol Use History: None Reported Additional Past Alcohol Use History / Comment(s): Pt smoked less than a ppd for about 15-20 yrs. She quit smoking in 1987. Past Drug Use History: None Reported - Past Family History Sister(s) Family Medical History: Diabetes Mellitus Father Family Medical History: Congestive Heart Failure (CHF), Myocardial Infarction (ME) Additional Family Medical History / Comment(s): Father of CHF at 68yrs of age. Mother Family Medical History: CVA/TIA Additional Family Medical History / Comment(s): Mother of a massive CVA and of it at the age of 76yrs. Medications and Allergies Home Medications Medication Instructions Recorded Confirmed Type Omeprazole 20 mg PO DAILY 01/14/15 04/17/19 History traMADol HCL [Ultram] 50 mg PO Q6HR PRN 09/05/16 04/17/19 History Apixaban [Eliquis] 2.5 mg PO BID 01/23/19 04/17/19 History Metoprolol Tartrate [Lopressor] 25 mg PO BID 01/23/19 04/17/19 History Furosemide [Lasix] 20 mg PO DAILY #30 tab 01/28/19 04/17/19 Rx Albuterol Inhaler [Ventolin Hfa 2 puff INHALATION RT-Q6H PRN 03/13/19 04/17/19 History Inhaler] Ipratropium [place] 0.06%Nasal 1 spray EA NOSTRIL DAILY 03/13/19 04/17/19 History [Atrovent Nasal 0.06%] Sertraline HCl [Zoloft] 100 mg PO DAILY 03/13/19 04/17/19 History Ferrous Sulfate [Feosol] 325 mg PO DAILY 04/17/19 04/17/19 History Nystatin 100,000 Unit/ml Susp 5 ml PO QID 04/17/19 04/17/19 History [Mycostatin Oral Susp] Allergies Allergy/AdvReac Type Severity Reaction Status Date / Time Sulfa (Sulfonamide Allergy Rash/Hives Verified 04/17/19 08:10 Antibiotics) Physical Exam Vitals: Vital Signs Temp Pulse Pulse Pulse Resp BP Pulse Ox 04/18/19 15:06 100.2 F H 87 21 119/68 95 04/18/19 07:55 98.3 F 62 18 131/65 100 04/18/19 00:00 98.1 F 60 16 111/65 96 04/17/19 19:39 98.3 F 76 18 121/72 99 Intake and Output 04/18/19 04/18/19 04/18/19 06:59 14:59 22:59 Intake Total 224 Output Total 500 Balance -276 Intake: Oral 224 Output: Urine 500 Other: Voiding Method Indwelling Catheter Indwelling Catheter GENERAL EXAM: Alert, pleasant, 83-year-old white female, on 2 L of oxygen, with a pulse ox of 95% mildly short of breath at rest, with increased shortness of breath with any activity. HEAD: Normocephalic/atraumatic. EYES: Normal reaction of pupils, equal size. Conjunctiva pink, sclera white. NOSE: Clear with pink turbinates. THROAT: No erythema or exudates. NECK: No masses, no JVD, no thyroid enlargement, no adenopathy. CHEST: No chest wall deformity. Symmetrical expansion. LUNGS: Diminished air entry with no crackles, wheeze, rhonchi or dullness. CVS: Regular rate and rhythm, normal S1 and S2, no gallops, no murmurs, no rubs ABDOMEN: Soft, nontender. No hepatosplenomegaly, normal bowel sounds, no guarding or rigidity. EXTREMITIES: No clubbing, no edema, no cyanosis, 2+ pulses and upper and lower extremities. MUSCULOSKELETAL: Muscle strength and tone normal. SPINE: No scoliosis or deformity SKIN: No rashes CENTRAL NERVOUS SYSTEM: Alert and oriented -3. No focal deficits, tone is normal in all 4 extremities. PSYCHIATRIC: Alert and oriented -3. Appropriate affect. Intact judgment and insight. Results - Laboratory Findings CBC and BMP: 04/17/19 00:15 04/17/19 00:15 PT/INR, D-dimer PT 10.9 sec (9.0-12.0) 04/17/19 00:15 INR 1.0 (<1.2) 04/17/19 00:15 D-Dimer 2.76 mg/L FEU (<0.60) H 04/18/19 14:01 Abnormal lab findings: Abnormal Labs 04/16/19 04/17/19 04/17/19 14:09 00:15 00:15 MCV 79.8 L MCH 24.8 L RDW 19.2 H Lymphocytes # 0.2 L D-Dimer Carbon Dioxide 31 H BUN 22 H HDL Cholesterol Urine Protein Trace H Ur Leukocyte Esterase Trace H Hyaline Casts 3 H Urine Mucus Few H 04/18/19 04/18/19 05:34 14:01 MCV MCH RDW Lymphocytes # D-Dimer 2.76 H Carbon Dioxide BUN HDL Cholesterol 36 L Urine Protein Ur Leukocyte Esterase Hyaline Casts Urine Mucus - Diagnostic Findings Chest x-ray: report reviewed, image reviewed Assessment and Plan Plan: Assessment: #1. Shortness of breath, acute on chronic hypoxic respiratory failure, elevated d-dimer, rule out pulmonary embolism, with the patient is already on oral anticoagulation for history of A. fib #2. Chronic IPF, with chronic hypoxemic respiratory failure #3. Hx of Afib on oral anticoagulation in the form of Eliquis #4. COPD #5. /Reflux #6. Hypertension #7. Osteoarthritis #8. History of a IBS #9. History of nicotine dependence, currently in remission Plan: CT angios chest has been reviewed, showing no evidence of pulmonary embolism. Chest x-ray has been reviewed, showing chronic changes of pulmonary fibrosis. Continue with nebulized bronchodilators, continue gentle IV hydration, and empiric antibiotics. No rhonchi, no wheezing noted on physical exam. Check influenza screen. I performed a history & physical examination of the patient and discussed their management with my nurse practitioner, Marisela Yee. I reviewed the nurse practitioner's note and agree with the documented findings and plan of care. Lung sounds are positive for diminished breath sounds. The findings and the i mpression was discussed with the patient. I attest to the documentation by the nurse practitioner. Time with Patient: Greater than 30
[2019-04-18] MEDS: ALBUTEROL NEBULIZED 2.5 MG/3 ML INHALATION PRN (19:19)
[2019-04-18] MEDS ORDERED: SODIUM CHLORIDE 0.9% 250 ML IV ONE (20:45)
[2019-04-18 20:59] LABS: Anisocytosis Slight; Basophils % (A) 0 %; Eosinophils # (A) 0.1 k/uL (0-0.7); Eosinophils % (A) 1 %; HCT 29.5 % (34.0-46.0); Hypochromasia Slight; Lymphocytes # (A) 0.3 k/uL (1.0-4.8); Lymphocytes % (A) 5 %; MCH 24.7 pg (25.0-35.0); MCHC 30.5 g/dL (31.0-37.0); MCV 80.9 fL (80.0-100.0); Mean Platelet Volume 10.6; Microcytosis Slight; Monocytes # (A) 0.1 k/uL (0-1.0); Monocytes % (A) 2 %; Neutrophils # (A) 6.2 k/uL (1.3-7.7); Neutrophils % (A) 92 %; Platelet Count 146 k/uL (150-450); RBC 3.64 m/uL (3.80-5.40); RDW 19.8 % (11.5-15.5); WBC 6.8 k/uL (3.8-10.6)
[2019-04-18] MEDS ORDERED: CEPHALEXIN 500 MG CAP PO SCH (21:00)
[2019-04-18 21:08] LABS: ALT 17 U/L (9-52); AST 24 U/L (14-36); African American GFR (CKD) 83 (>60 ml/min/1.73 sqM); Albumin 2.1 g/dL (3.5-5.0); Alkaline Phosphatase 96 U/L (38-126); Anion Gap 5 mmol/L; Blood Urea Nitrogen 17 mg/dL (7-17); Calcium 7.8 mg/dL (8.4-10.2); Carbon Dioxide 24 mmol/L (22-30); Chloride 111 mmol/L (98-107); Creatine Kinase <20 U/L (30-135); Glucose 80 mg/dL (74-99); Non-African American GFR(CKD) 72 (>60 ml/min/1.73 sqM); Potassium 3.1 mmol/L (3.5-5.1); Sodium 140 mmol/L (137-145); Total Bilirubin 0.6 mg/dL (0.2-1.3); Total Protein 4.4 g/dL (6.3-8.2)
[2019-04-18 21:35] LABS: Glucose,Whole Blood 78 mg/dL (75-99)
[2019-04-18] MEDS ORDERED: Potassium Replacement Protocol 1 EACH MISC MISCELLANE PRN (22:35)
[2019-04-18] MEDS: POTASSIUM BICARBONATE/CIT AC 20 MEQ TABLET.EFF NG-TUBE SCH ×2 (23:06→23:07)
[2019-04-19 03:07] LABS: Anisocytosis Slight; Basophils % (A) 0 %; Eosinophils % (A) 0 %; HCT 29.2 % (34.0-46.0); HGB 8.9 gm/dL (11.4-16.0); Hypochromasia Moderate; Lymphocytes # (A) 0.7 k/uL (1.0-4.8); Lymphocytes % (A) 6 %; MCH 24.7 pg (25.0-35.0); MCHC 30.5 g/dL (31.0-37.0); MCV 80.9 fL (80.0-100.0); Mean Platelet Volume 9.2; Microcytosis Slight; Monocytes # (A) 0.4 k/uL (0-1.0); Monocytes % (A) 3 %; Neutrophils # (A) 10.4 k/uL (1.3-7.7); Neutrophils % (A) 90 %; Platelet Count 162 k/uL (150-450); RBC 3.61 m/uL (3.80-5.40); RDW 19.4 % (11.5-15.5); WBC 11.6 k/uL (3.8-10.6)
[2019-04-19 03:27] LABS: Calcium 7.6 mg/dL (8.4-10.2); Potassium 4.4 mmol/L (3.5-5.1)
[2019-04-19] MEDS ORDERED: SODIUM CHLORIDE 0.9% 500 ML 500 ML IV ONE (04:10)
[2019-04-19] MEDS: PANTOPRAZOLE 40 MG TABLET PO SCH (07:09)
[2019-04-19] MEDS: ASPIRIN 325 MG TAB PO SCH (08:07)
[2019-04-19] MEDS: FUROSEMIDE 20 MG TAB PO SCH (08:07)
[2019-04-19] MEDS: NYSTATIN 100,000 UNIT/ML SUSP 500,000 UNIT/5 ML CUP PO SCH ×4 (08:07→22:21)
[2019-04-19] MEDS: APIXABAN 2.5 MG TABLET PO SCH ×2 (08:07→20:31)
[2019-04-19] MEDS: SERTRALINE 100 MG TAB PO SCH (08:07)
[2019-04-19] MEDS: METOPROLOL TARTRATE 25 MG TAB PO SCH ×2 (08:07→20:31)
[2019-04-19] MEDS: FERROUS SULFATE 325 MG TAB PO SCH (08:07)
[2019-04-19] MEDS: IPRATROPIUM BROMIDE 0.06% NASAL SPRAY (15 ML) EA NOSTRIL SCH (08:08)
--- NOTE | 2019-04-19 08:36 | P.PN ---
Subjective Progress Note Date: 04/19/19 Principal diagnosis: Shortness of breath, dehydration, hypotension This is a 83-year-old white female patient with past medical history of IPF with chronic hypoxemic respiratory failure on the 2-1/2 L of oxygen per nasal cannula, severe kyphoscoliosis of thoracolumbar spine, a large hiatal hernia, chronic dysphagia related to large hiatal hernia, chronic atrial fibrillation on Eliquis, hypertension, chronic anxiety/depression, and COPD. We had recently seen the patient in consultation in March,, for acute exacerbation of COPD/pulmonary fibrosis. Patient had improved, and was discharged home. On 04/16/2019 patient presented to the emergency department or evaluation of increased weakness, sudden onset shortness of breath, hypoxemia with a pulse ox of 70% on a usual amount of oxygen, she had not been feeling well for a few days, increasingly weak, and patient had a low-grade fever on presentation. Complained of generalized body aches, loss appetite, nausea, vomiting and dehydration. Chest x-ray was completed showing moderate pulmonary fibrosis, hiatal hernia, no significant change from her previous admission in March 2019. Lab work showed a white blood cell count of 4.2, hemoglobin of 12.3, INR of 1.0, d-dimer was 2.76, and CTA chest has been ordered and is pending at this time, electrolytes were unremarkable with the exception of CO2 which is at 31, BUN is 22, creatinine 0.99, sets of troponins were negative, proBNP was 1130. Urinalysis showed trace leuks, but no significant white blood cell count or RBCs, no clear evidence of urinary tract infection. Patient has a fever this afternoon, with a temp of 100.2F, she is on 3 L of oxygen her pulse ox of 95%, he is hemodynamically stable, she is short of breath at rest, no acute distress. On 04/19/2019 patient seen in follow-up in the intensive care unit, overnight patient developed hypotension, requiring fluid bolus, patient received 750 mL fluid bolus, and his IV fluids are infusing at a rate of 100 ML per hour, patient responded well to IV fluids, did not require vasopressor support. No further vomiting or diarrhea, her oral Lasix was put on hold, this morning she i s awake and alert, in no acute distress, she denies any worsening shortness of breath she remains up-to-date as of oxygen with a pulse ox of 90%, she is afebrile, hemodynamically stable, will check influenza screen which was negative, today's labs have been reviewed, going with blood cell count of 11.6, hemoglobin of 8.9, sodium is 139, potassium is 4.4, chloride is 110, the rest of the left was in renal profile were within normal limits. Plasma lactic acid was normal at 1.3 and 1.6, troponin today is 0.019, and 0.060, patient denied any chest pain. Yesterday CTA chest showed no evidence of pulmonary embolism. Did show small bilateral pleural effusions, and scattered fibrosis bilaterally moderate in degree, no distinct mass or nodule. No pulmonary consolidation. Patient has an indwelling catheter in, and she is nonoliguric, she produced 1050 ML of urine overnight, he is on empiric antibiotics in the form of Rocephin. Objective - Vital Signs Vital signs: Vital Signs Temp 97.8 F 04/19/19 04:00 Pulse 70 04/19/19 07:00 Resp 20 04/19/19 07:00 BP 107/71 04/19/19 07:00 Pulse Ox 99 04/19/19 05:00 Intake & Output 04/18/19 04/19/19 04/19/19 18:59 06:59 18:59 Intake Total 800 100 Output Total 900 150 Balance -100 -50 Intake: IV 100 Sodium Chloride 0.9% 1, 50 000 ml @ 100 mls/hr IV . Q10H [facility] Rx#:[id number] cefTRIAXone 1 gm In 50 Sodium Chloride 0.9% 50 ml @ 100 mls/hr IVPB Q24HR [facility] Rx#:[id number] Intake, IV Titration 800 Amount Sodium Chloride 0.9% 1, 800 000 ml @ 100 mls/hr IV . Q10H [facility] Rx#:[id number] Output: Urine 900 150 Other: Voiding Method Indwelling Catheter Indwelling Catheter - Exam GENERAL EXAM: Alert, pleasant, 83-year-old white female, on 3 L of oxygen, with a pulse ox of 95% fairly comfortable, no acute distress, does have exertional dyspnea HEAD: Normocephalic/atraumatic. EYES: Normal reaction of pupils, equal size. Conjunctiva pink, sclera white. NOSE: Clear with pink turbinates. THROAT: No erythema or exudates. NECK: No masses, no JVD, no thyroid enlargement, no adenopathy. CHEST: No chest wall deformity. Symmetrical expansion. LUNGS: Diminished air entry with basilar crackles, but no wheeze, rhonchi or dullness. CVS: Regular rate and rhythm, normal S1 and S2, no gallops, no murmurs, no rubs ABDOMEN: Soft, nontender. No hepatosplenomegaly, normal bowel sounds, no guarding or rigidity. EXTREMITIES: No clubbing, no edema, no cyanosis, 2+ pulses and upper and lower extremities. MUSCULOSKELETAL: Muscle strength and tone normal. SPINE: No scoliosis or deformity SKIN: No rashes CENTRAL NERVOUS SYSTEM: Alert and oriented -3. No focal deficits, tone is normal in all 4 extremities. PSYCHIATRIC: Alert and oriented -3. Appropriate affect. Intact judgment and insight. - Labs CBC & Chem 7: 04/19/19 02:16 04/19/19 02:16 Labs: Abnormal Lab Results - Last 24 Hours (Table) 04/18/19 04/18/19 04/18/19 Range/Units 14:01 20:46 20:46 WBC (3.8-10.6) k/uL RBC 3.64 L (3.80-5.40) m/uL Hgb 9.0 L D (11.4-16.0) gm/dL Hct 29.5 L (34.0-46.0) % MCH 24.7 L (25.0-35.0) pg MCHC 30.5 L (31.0-37.0) g/dL RDW 19.8 H (11.5-15.5) % Plt Count 146 L (150-450) k/uL Neutrophils # (1.3-7.7) k/uL Lymphocytes # 0.3 L (1.0-4.8) k/uL D-Dimer 2.76 H (<0.60) mg/L FEU Potassium 3.1 L (3.5-5.1) mmol/L Chloride 111 H (98-107) mmol/L Glucose (74-99) mg/dL Calcium 7.8 L (8.4-10.2) mg/dL Creatine Kinase <20 L (30-135) U/L Troponin I (0.000-0.034) ng/mL Total Protein 4.4 L (6.3-8.2) g/dL Albumin 2.1 L (3.5-5.0) g/dL 04/19/19 04/19/19 04/19/19 Range/Units 02:16 02:16 02:16 WBC 11.6 H (3.8-10.6) k/uL RBC 3.61 L (3.80-5.40) m/uL Hgb 8.9 L (11.4-16.0) gm/dL Hct 29.2 L (34.0-46.0) % MCH 24.7 L (25.0-35.0) pg MCHC 30.5 L (31.0-37.0) g/dL RDW 19.4 H (11.5-15.5) % Plt Count (150-450) k/uL Neutrophils # 10.4 H (1.3-7.7) k/uL Lymphocytes # 0.7 L (1.0-4.8) k/uL D-Dimer (<0.60) mg/L FEU Potassium (3.5-5.1) mmol/L Chloride 110 H (98-107) mmol/L Glucose 111 H (74-99) mg/dL Calcium 7.6 L (8.4-10.2) mg/dL Creatine Kinase (30-135) U/L Troponin I 0.060 H* (0.000-0.034) ng/mL Total Protein (6.3-8.2) g/dL Albumin (3.5-5.0) g/dL Assessment and Plan Plan: Assessment: #1. Hypotension related to hypovolemic state, secondary to nausea, vomiting and diarrhea, patient has received 0.75 L of IV fluid bolus responded well #2. Shortness of breath, acute on chronic hypoxic respiratory failure, elevated d-dimer, rule out pulmonary embolism, with the patient is already on oral anticoagulation for history of A. fib #3. Nausea, vomiting, diarrhea, improved #4. Low-grade fever, rule out infectious process, patient is on empiric antibiotics. CT chest did not show pulmonary consolidation, urinalysis was negative #5. Elevated troponin, patient denies any chest pain, we'll obtain an EKG #6. Chronic IPF, with chronic hypoxemic respiratory failure #7. Hx of Afib on oral anticoagulation in the form of Eliquis #8. COPD #9. /Reflux #10. Hypertension #11. Osteoarthritis #12. History of a IBS #13. History of nicotine dependence, currently in remission Plan: She has been fluid resuscitated, continue maintenance IV fluids at 100 ML per hour, we'll stop the Lasix for now, patient has had no further nausea vomiting or diarrhea, she is tolerating oral intake, any breathing treatments, empiric antibiotics, no fever or chills overnight, patient is feeling better, hemodynamically stable, continue oral anticoagulation, we'll obtain the EKG, patient has had no complaints of chest pain. We'll obtain a follow-up troponin. CODE STATUS was discussed with the patient, and patient wants to be DO NOT RE SUSCITATE and DO NOT INTUBATE CODE STATUS, we will continue supportive care. She is stable for transfer out of the intensive care unit today to general medical floor. I performed a history & physical examination of the patient and discussed their management with my nurse practitioner, Marisela Yee. I reviewed the nurse practitioner's note and agree with the documented findings and plan of care. Lung sounds are positive for diminished breath sounds. The findings and the impression was discussed with the patient. I attest to the documentation by the nurse practitioner. Time with Patient: Less than 30
[2019-04-19] MEDS: ALBUTEROL NEBULIZED 2.5 MG/3 ML INHALATION PRN (08:57)
--- NOTE | 2019-04-19 12:43 | P.PN ---
Subjective 3 the night the patient developed hypotension was transferred to the intensive care unit fluid resuscitated. Was evaluated by pulmonology. Patient is now a no code. Orders received for transfer to regular medical floor. Patient had positive d-dimer CT the chest performed and found to have stomach entirely in the chest surgeries consult for evaluation. Patient had positive troponins 2 cardiology consult did Objective - Vital Signs Vital signs: Vital Signs Temp 98.3 F 04/19/19 11:52 Pulse 87 04/19/19 11:52 Resp 22 04/19/19 11:52 BP 118/57 04/19/19 11:52 Pulse Ox 97 04/19/19 11:52 Intake & Output 04/18/19 04/19/19 04/19/19 18:59 06:59 18:59 Intake Total 800 100 200 Output Total 900 150 125 Balance -100 -50 75 Weight 50.349 kg Intake: IV 100 200 Sodium Chloride 0.9% 1, 50 200 000 ml @ 100 mls/hr IV . Q10H [facility] Rx#:[id number] cefTRIAXone 1 gm In 50 Sodium Chloride 0.9% 50 ml @ 100 mls/hr IVPB Q24HR [facility] Rx#:[id number] Intake, IV Titration 800 Amount Sodium Chloride 0.9% 1, 800 000 ml @ 100 mls/hr IV . Q10H [facility] Rx#:[id number] Output: Urine 900 150 125 Other: Voiding Method Indwelling Catheter Indwelling Catheter Indwelling Catheter - Constitutional General appearance: Present: mild distress - EENT Eyes: Present: PERRLA Ears: bilateral: normal - Neck Neck: Present: normal ROM - Respiratory Respiratory: bilateral: diminished - Cardiovascular Rhythm: regular Abnormal Heart Sounds: Present: systolic murmur - Gastrointestinal General gastrointestinal: Present: soft - Integumentary Integumentary: Present: normal - Neurologic Neurologic: Present: CNII-XII intact - Musculoskeletal Musculoskeletal: Present: generalized weakness - Psychiatric Psychiatric: Present: A&O x's 3, appropriate affect, intact judgment & insight - Labs CBC & Chem 7: 04/19/19 02:16 04/19/19 02:16 Labs: Abnormal Lab Results - Last 24 Hours (Table) 04/18/19 04/18/19 04/18/19 Range/Units 14:01 20:46 20:46 WBC (3.8-10.6) k/uL RBC 3.64 L (3.80-5.40) m/uL Hgb 9.0 L D (11.4-16.0) gm/dL Hct 29.5 L (34.0-46.0) % MCH 24.7 L (25.0-35.0) pg MCHC 30.5 L (31.0-37.0) g/dL RDW 19.8 H (11.5-15.5) % Plt Count 146 L (150-450) k/uL Neutrophils # (1.3-7.7) k/uL Lymphocytes # 0.3 L (1.0-4.8) k/uL D-Dimer 2.76 H (<0.60) mg/L FEU Potassium 3.1 L (3.5-5.1) mmol/L Chloride 111 H (98-107) mmol/L Glucose (74-99) mg/dL Calcium 7.8 L (8.4-10.2) mg/dL Creatine Kinase <20 L (30-135) U/L Troponin I (0.000-0.034) ng/mL Total Protein 4.4 L (6.3-8.2) g/dL Albumin 2.1 L (3.5-5.0) g/dL 04/19/19 04/19/19 04/19/19 Range/Units 02:16 02:16 02:16 WBC 11.6 H (3.8-10.6) k/uL RBC 3.61 L (3.80-5.40) m/uL Hgb 8.9 L (11.4-16.0) gm/dL Hct 29.2 L (34.0-46.0) % MCH 24.7 L (25.0-35.0) pg MCHC 30.5 L (31.0-37.0) g/dL RDW 19.4 H (11.5-15.5) % Plt Count (150-450) k/uL Neutrophils # 10.4 H (1.3-7.7) k/uL Lymphocytes # 0.7 L (1.0-4.8) k/uL D-Dimer (<0.60) mg/L FEU Potassium (3.5-5.1) mmol/L Chloride 110 H (98-107) mmol/L Glucose 111 H (74-99) mg/dL Calcium 7.6 L (8.4-10.2) mg/dL Creatine Kinase (30-135) U/L Troponin I 0.060 H* (0.000-0.034) ng/mL Total Protein (6.3-8.2) g/dL Albumin (3.5-5.0) g/dL 04/19/19 Range/Units 07:58 WBC (3.8-10.6) k/uL RBC (3.80-5.40) m/uL Hgb (11.4-16.0) gm/dL Hct (34.0-46.0) % MCH (25.0-35.0) pg MCHC (31.0-37.0) g/dL RDW (11.5-15.5) % Plt Count (150-450) k/uL Neutrophils # (1.3-7.7) k/uL Lymphocytes # (1.0-4.8) k/uL D-Dimer (<0.60) mg/L FEU Potassium (3.5-5.1) mmol/L Chloride (98-107) mmol/L Glucose (74-99) mg/dL Calcium (8.4-10.2) mg/dL Creatine Kinase (30-135) U/L Troponin I 0.054 H* (0.000-0.034) ng/mL Total Protein (6.3-8.2) g/dL Albumin (3.5-5.0) g/dL Assessment and Plan Plan: Assessment Dehydration Hypotension secondary to dehydration Urinary tract infection with urinary retention Hiatal hernia History of atrial failure paroxysmal controlled rate COPD with chronic rest for a failure secondary to pulmonary fibrosis GERD Hypertension Osteoarthritis Plan Continue consultation with pulmonology surgery and cardiology Transfer to regular medical surgical
[2019-04-19] MEDS: SODIUM CHLORIDE 0.9% 1,000 ML IV SCH (14:02)
--- NOTE | 2019-04-19 14:36 | P.GSCN ---
<Hedii Bassett - Last Filed: 04/19/19 14:31> History of Present Illness Consult date: 04/19/19 Reason for Consult: hiatal hernia Requesting physician: Viki Elena History of present illness: CHIEF COMPLAINT: Hiatal hernia HISTORY OF PRESENT ILLNESS: 83-year-old female who initially presented to the emergency room with nausea, vomiting, and weakness. Patient was found to have elevated troponins. Patient is on long-term anticoagulation with Eliquis. She also had shortness of breath. Patient underwent a CTA which was negative for pulmonary embolism. It did reveal patient's stomach is virtually entirely intrathoracic in location. General surgery was consulted for evaluation. Patient examined at the bedside in the intensive care unit. Patient states her nausea and vomiting has resolved. She denies abdominal pain. Passing flatus and having bowel movements. She is tolerating regular diet. Patient states she has known about her hiatal hernia for approximately one year. She states he normally does not give her any difficulty. She does report early satiety occasionally. She denies having nausea or vomiting regularly at home. PAST MEDICAL HISTORY: See list. PAST SURGICAL HISTORY: See list. MEDICATIONS: See list. ALLERGIES: See list. SOCIAL HISTORY: No illicit drug use. REVIEW OF SYSTEMS: CONSTITUTIONAL: Denies fever or chills. HEENT: Denies blurred vision, vision changes, or eye pain. Denies hemoptysis ENDOCRINE: Denies heat or cold intolerance. CARDIOVASCULAR: Denies chest pain or pressure. RESPIRATORY: Reports shortness of breath prior to hospitalization. History of COPD and pulmonary fibrosis. GASTROINTESTINAL: See HPI for pertinent findings. NEURO: Denies history of seizures. PSYCH: No depression or suicidal ideation HEMATOLOGIC: Denies bleeding disorders. LYMPHATIC: The patient denies any lumps and bumps around the neck. GENITOURINARY: Denies any blood in urine or increased urinary frequency. MUSCULOSKELETAL: Denies myalgias. Denies joint swelling. Denies decreased range of motion beyond patients baseline. SKIN: Denies pruitis. Denies rash. PHYSICAL EXAM: VITAL SIGNS: Reviewed. GENERAL: Well-developed in no acute distress. HEENT: No sclera icterus. Extraocular movements grossly intact. Moist buccal mucosa. Head is atraumatic, normocephalic. Hears conversational speech. No nasal drainage. NECK: Supple without lymphadenopathy. CHEST: Non-labored respirations and equal bilateral excursions. CARDIOVASCULAR: Regular rate with regular rhythm. Palpable 2+ radial pulses. ABDOMEN: Soft. Nondistended. Nontender. MUSCULOSKELETAL: No clubbing or cyanosis. NEUROLOGIC: No focal or lateralizing signs. Cranial nerves II through XII grossly intact. PSYCH: Appropriate affect. Alert and oriented to person, place and time. SKIN: Well perfused. Good skin turgor. LABORATORY DATA: WBC 11.6. Hemoglobin 9.8. Platelet count 162. Sodium 139. Potassium 4.4. BUN 17. Creatinine 0.73. IMAGING: CTA which was negative for pulmonary embolism. It did reveal patient's stomach is virtually entirely intrathoracic in location. ASSESSMENT: 1. Nausea and vomiting, resolved 2. Hiatal hernia 3. History of atrial fibrillation, on long-term anticoagulation with Eliquis PLAN: Patient states she has known about her hiatal hernia for approximately one year and does not report having much difficulty in regards to it. She states she does not want to have surgery for hiatal hernia and loss of sepsis necessary. She would like to continue with nonsurgical management and diet modification as needed. Dr. Lazo will re-evaluate patient this evening and make further recommendations. Nurse practitioner note has been reviewed by physician. Signing provider agrees with the documented findings, assessment, and plan of care. Past Medical History Past Medical History: Atrial Fibrillation, Chest Pain / Angina, COPD, GE RD/Reflux, Hypertension, Osteoarthritis (OA), Pneumonia Additional Past Medical History / Comment(s): Paroxysmal Afib, echo 01/2019 showed EF 50-55%, chronic respiratory failure with home oxygen at 2.5L/NC ATC, pulmonary fibrosis, chronic entire back pain, scoliosis, DDD, IBS, UTIs, seasonal allergies. History of Any Multi-Drug Resistant Organisms: None Reported Past Surgical History: Cholecystectomy, Joint Replacement Additional Past Surgical History / Comment(s): 11/2018 biliary stent at [facility], ov sapphire cyst removed, right knee replacement, colonoscopy-normal. Past Anesthesia/Blood Transfusion Reactions: No Reported Reaction Additional Past Anesthesia/Blood Transfusion Reaction / Comm: Pt has never recieved blood. Past Psychological History: Anxiety, Depression Additional Psychological History / Comment(s): Pt resides with her son. She is independent. She has home oxygen and a nebulizer. She uses a walker or cane prn. She has Residential home care. Smoking Status: Former smoker Past Alcohol Use History: None Reported Additional Past Alcohol Use History / Comment(s): Pt smoked less than a ppd for about 15-20 yrs. She quit smoking in 1987. Past Drug Use History: None Reported - Past Family History Sister(s) Family Medical History: Diabetes Mellitus Father Family Medical History: Congestive Heart Failure (CHF), Myocardial Infarction (NH) Additional Family Medical History / Comment(s): Father of CHF at 68yrs of age. Mother Family Medical History: CVA/TIA Additional Family Medical History / Comment(s): Mother of a massive CVA and of it at the age of 76yrs. Medications and Allergies Home Medications Medication Instructions Recorded Confirmed Type Omeprazole 20 mg PO DAILY 01/14/15 04/17/19 History traMADol HCL [Ultram] 50 mg PO Q6HR PRN 09/05/16 04/17/19 History Apixaban [Eliquis] 2.5 mg PO BID 01/23/19 04/17/19 History Metoprolol Tartrate [Lopressor] 25 mg PO BID 01/23/19 04/17/19 History Furosemide [Lasix] 20 mg PO DAILY #30 tab 01/28/19 04/17/19 Rx Albuterol Inhaler [Ventolin Hfa 2 puff INHALATION RT-Q6H PRN 03/13/19 04/17/19 History Inhaler] Ipratropium [place] 0.06%Nasal 1 spray EA NOSTRIL DAILY 03/13/19 04/17/19 History [Atrovent Nasal 0.06%] Sertraline HCl [Zoloft] 100 mg PO DAILY 03/13/19 04/17/19 History Ferrous Sulfate [Feosol] 325 mg PO DAILY 04/17/19 04/17/19 History Nystatin 100,000 Unit/ml Susp 5 ml PO QID 04/17/19 04/17/19 History [Mycostatin Oral Susp] Allergies Allergy/AdvReac Type Severity Reaction Status Date / Time Sulfa (Sulfonamide Allergy Rash/Hives Verified 04/17/19 08:10 Antibiotics) Surgical - Exam Vital Signs Temp Pulse Resp BP Pulse Ox 98.3 F 107 H 20 101/61 97 04/16/19 23:46 04/16/19 23:46 04/16/19 23:46 04/16/19 23:46 04/16/19 23:46 Results - Labs 04/19/19 02:16 04/19/19 02:16 Abnormal Lab Results - Last 24 Hours (Table) 04/18/19 04/18/19 04/18/19 Range/Units 14:01 20:46 20:46 WBC (3.8-10.6) k/uL RBC 3.64 L (3.80-5.40) m/uL Hgb 9.0 L D (11.4-16.0) gm/dL Hct 29.5 L (34.0-46.0) % MCH 24.7 L (25.0-35.0) pg MCHC 30.5 L (31.0-37.0) g/dL RDW 19.8 H (11.5-15.5) % Plt Count 146 L (150-450) k/uL Neutrophils # (1.3-7.7) k/uL Lymphocytes # 0.3 L (1.0-4.8) k/uL D-Dimer 2.76 H (<0.60) mg/L FEU Potassium 3.1 L (3.5-5.1) mmol/L Chloride 111 H (98-107) mmol/L Glucose (74-99) mg/dL Calcium 7.8 L (8.4-10.2) mg/dL Creatine Kinase <20 L (30-135) U/L Troponin I (0.000-0.034) ng/mL Total Protein 4.4 L (6.3-8.2) g/dL Albumin 2.1 L (3.5-5.0) g/dL 04/19/19 04/19/19 04/19/19 Range/Units 02:16 02:16 02:16 WBC 11.6 H (3.8-10.6) k/uL RBC 3.61 L (3.80-5.40) m/uL Hgb 8.9 L (11.4-16.0) gm/dL Hct 29.2 L (34.0-46.0) % MCH 24.7 L (25.0-35.0) pg MCHC 30.5 L (31.0-37.0) g/dL RDW 19.4 H (11.5-15.5) % Plt Count (150-450) k/uL Neutrophils # 10.4 H (1.3-7.7) k/uL Lymphocytes # 0.7 L (1.0-4.8) k/uL D-Dimer (<0.60) mg/L FEU Potassium (3.5-5.1) mmol/L Chloride 110 H (98-107) mmol/L Glucose 111 H (74-99) mg/dL Calcium 7.6 L (8.4-10.2) mg/dL Creatine Kinase (30-135) U/L Troponin I 0.060 H* (0.000-0.034) ng/mL Total Protein (6.3-8.2) g/dL Albumin (3.5-5.0) g/dL 04/19/19 Range/Units 07:58 WBC (3.8-10.6) k/uL RBC (3.80-5.40) m/uL Hgb (11.4-16.0) gm/dL Hct (34.0-46.0) % MCH (25.0-35.0) pg MCHC (31.0-37.0) g/dL RDW (11.5-15.5) % Plt Count (150-450) k/uL Neutrophils # (1.3-7.7) k/uL Lymphocytes # (1.0-4.8) k/uL D-Dimer (<0.60) mg/L FEU Potassium (3.5-5.1) mmol/L Chloride (98-107) mmol/L Glucose (74-99) mg/dL Calcium (8.4-10.2) mg/dL Creatine Kinase (30-135) U/L Troponin I 0.054 H* (0.000-0.034) ng/mL Total Protein (6.3-8.2) g/dL Albumin (3.5-5.0) g/dL Diabetes panel 04/18/19 04/19/19 Range/Units 20:46 02:16 Sodium 140 139 (137-145) mmol/L Potassium 3.1 L 4.4 (3.5-5.1) mmol/L Chloride 111 H 110 H (98-107) mmol/L Carbon Dioxide 24 24 (22-30) mmol/L BUN 17 17 (7-17) mg/dL Creatinine 0.78 0.73 (0.52-1.04) mg/dL Glucose 80 111 H (74-99) mg/dL Calcium 7.8 L 7.6 L (8.4-10.2) mg/dL AST 24 (14-36) U/L ALT 17 (9-52) U/L Alkaline Phosphatase 96 (38-126) U/L Total Protein 4.4 L (6.3-8.2) g/dL Albumin 2.1 L (3.5-5.0) g/dL Calcium panel 04/18/19 04/19/19 Range/Units 20:46 02:16 Calcium 7.8 L 7.6 L (8.4-10.2) mg/dL Albumin 2.1 L (3.5-5.0) g/dL Pituitary panel 04/18/19 04/19/19 Range/Units 20:46 02:16 Sodium 140 139 (137-145) mmol/L Potassium 3.1 L 4.4 (3.5-5.1) mmol/L Chloride 111 H 110 H (98-107) mmol/L Carbon Dioxide 24 24 (22-30) mmol/L BUN 17 17 (7-17) mg/dL Creatinine 0.78 0.73 (0.52-1.04) mg/dL Glucose 80 111 H (74-99) mg/dL Calcium 7.8 L 7.6 L (8.4-10.2) mg/dL Adrenal panel 04/18/19 04/19/19 Range/Units 20:46 02:16 Sodium 140 139 (137-145) mmol/L Potassium 3.1 L 4.4 (3.5-5.1) mmol/L Chloride 111 H 110 H (98-107) mmol/L Carbon Dioxide 24 24 (22-30) mmol/L BUN 17 17 (7-17) mg/dL Creatinine 0.78 0.73 (0.52-1.04) mg/dL Glucose 80 111 H (74-99) mg/dL Calcium 7.8 L 7.6 L (8.4-10.2) mg/dL Total Bilirubin 0.6 (0.2-1.3) mg/dL AST 24 (14-36) U/L ALT 17 (9-52) U/L Alkaline Phosphatase 96 (38-126) U/L Total Protein 4.4 L (6.3-8.2) g/dL Albumin 2.1 L (3.5-5.0) g/dL <Estrella Lazo N - Last Filed: 04/19/19 20:57> History of Present Illness History of present illness: Patient seen and evaluated. With her baseline history of pulmonary fibrosis including overall generalized debility, patient is extremely high risk for any surgical intervention. Likely, this hiatal hernia has been present for decades over 30+ years. She has learned how to manage with her hernia including eating small meals. Should she re-consider for surgical intervention, she would need at minimum pulmonary including cardiac clearances. Any surgical intervention will be evaluated as an outpatient basis. Overall, patient agrees with conservative management given her age and multiple medical comorbidities. Surgical - Exam Vital Signs Temp Pulse Resp BP Pulse Ox 98.3 F 107 H 20 101/61 97 04/16/19 23:46 04/16/19 23:46 04/16/19 23:46 04/16/19 23:46 04/16/19 23:46 Results - Labs 04/19/19 02:16 04/19/19 02:16 Abnormal Lab Results - Last 24 Hours (Table) 04/18/19 04/18/19 04/19/19 Range/Units 20:46 20:46 02:16 WBC (3.8-10.6) k/uL RBC 3.64 L (3.80-5.40) m/uL Hgb 9.0 L D (11.4-16.0) gm/dL Hct 29.5 L (34.0-46.0) % MCH 24.7 L (25.0-35.0) pg MCHC 30.5 L (31.0-37.0) g/dL RDW 19.8 H (11.5-15.5) % Plt Count 146 L (150-450) k/uL Neutrophils # (1.3-7.7) k/uL Lymphocytes # 0.3 L (1.0-4.8) k/uL Potassium 3.1 L (3.5-5.1) mmol/L Chloride 111 H (98-107) mmol/L Glucose (74-99) mg/dL Calcium 7.8 L (8.4-10.2) mg/dL Creatine Kinase <20 L (30-135) U/L Troponin I 0.060 H* (0.000-0.034) ng/mL Total Protein 4.4 L (6.3-8.2) g/dL Albumin 2.1 L (3.5-5.0) g/dL 04/19/19 04/19/19 04/19/19 Range/Units 02:16 02:16 07:58 WBC 11.6 H (3.8-10.6) k/uL RBC 3.61 L (3.80-5.40) m/uL Hgb 8.9 L (11.4-16.0) gm/dL Hct 29.2 L (34.0-46.0) % MCH 24.7 L (25.0-35.0) pg MCHC 30.5 L (31.0-37.0) g/dL RDW 19.4 H (11.5-15.5) % Plt Count (150-450) k/uL Neutrophils # 10.4 H (1.3-7.7) k/uL Lymphocytes # 0.7 L (1.0-4.8) k/uL Potassium (3.5-5.1) mmol/L Chloride 110 H (98-107) mmol/L Glucose 111 H (74-99) mg/dL Calcium 7.6 L (8.4-10.2) mg/dL Creatine Kinase (30-135) U/L Troponin I 0.054 H* (0.000-0.034) ng/mL Total Protein (6.3-8.2) g/dL Albumin (3.5-5.0) g/dL Diabetes panel 04/18/19 04/19/19 Range/Units 20:46 02:16 Sodium 140 139 (137-145) mmol/L Potassium 3.1 L 4.4 (3.5-5.1) mmol/L Chloride 111 H 110 H (98-107) mmol/L Carbon Dioxide 24 24 (22-30) mmol/L BUN 17 17 (7-17) mg/dL Creatinine 0.78 0.73 (0.52-1.04) mg/dL Glucose 80 111 H (74-99) mg/dL Calcium 7.8 L 7.6 L (8.4-10.2) mg/dL AST 24 (14-36) U/L ALT 17 (9-52) U/L Alkaline Phosphatase 96 (38-126) U/L Total Protein 4.4 L (6.3-8.2) g/dL Albumin 2.1 L (3.5-5.0) g/dL Calcium panel 04/18/19 04/19/19 Range/Units 20:46 02:16 Calcium 7.8 L 7.6 L (8.4-10.2) mg/dL Albumin 2.1 L (3.5-5.0) g/dL Pituitary panel 04/18/19 04/19/19 Range/Units 20:46 02:16 Sodium 140 139 (137-145) mmol/L Potassium 3.1 L 4.4 (3.5-5.1) mmol/L Chloride 111 H 110 H (98-107) mmol/L Carbon Dioxide 24 24 (22-30) mmol/L BUN 17 17 (7-17) mg/dL Creatinine 0.78 0.73 (0.52-1.04) mg/dL Glucose 80 111 H (74-99) mg/dL Calcium 7.8 L 7.6 L (8.4-10.2) mg/dL Adrenal panel 04/18/19 04/19/19 Range/Units 20:46 02:16 Sodium 140 139 (137-145) mmol/L Potassium 3.1 L 4.4 (3.5-5.1) mmol/L Chloride 111 H 110 H (98-107) mmol/L Carbon Dioxide 24 24 (22-30) mmol/L BUN 17 17 (7-17) mg/dL Creatinine 0.78 0.73 (0.52-1.04) mg/dL Glucose 80 111 H (74-99) mg/dL Calcium 7.8 L 7.6 L (8.4-10.2) mg/dL Total Bilirubin 0.6 (0.2-1.3) mg/dL AST 24 (14-36) U/L ALT 17 (9-52) U/L Alkaline Phosphatase 96 (38-126) U/L Total Protein 4.4 L (6.3-8.2) g/dL Albumin 2.1 L (3.5-5.0) g/dL
--- NOTE | 2019-04-19 15:20 | P.CRDCN ---
History of Present Illness Consult date: 04/19/19 Requesting physician: Candido Chappell Chief complaint: Weakness, shortness of breath History of present illness: This is an 83-year-old female with past medical history significant for chronic atrial fibrillation, on Eliquis for anticoagulation, hypertension, anxiety and depression, COPD, idiopathic pulmonary fibrosis with chronic hypoxemic respiratory failure on home O2, severe kyphoscoliosis of the thoracic oh, lumbar spine, chronic dysphagia secondary to large hiatal hernia, she was recently in the hospital in March for COPD and pulmonary fibrosis exacerbation and was discharged home. On the she presented back to the emergency room with symptoms of increased weakness, sudden onset of shortness of breath, she was found to be hypoxemic with a pulse ox of 70% on her usual home O2. Patient states she's been incredibly weak, and had a low-grade fever with chills. Complained of generalized body aches, loss of appetite with 30 pounds of weight loss in the past 6 months, nausea vomiting and dehydration. Her chest x-ray on presentation here showed moderate pulmonary fibrosis, hiatal hernia, no significant change from previous admission in March. Laboratory data was reviewed, white blood cell count 4.2, hemoglobin 12.3, d-dimer 2.76, CT of the chest was requested, came back negative for pulmonary embolism. Laboratory data, white blood cell count yesterday 6.8, 11.6 this morning, hemoglobin 8.9, platelet count 162. Sodium yesterday 140 with a potassium of 3.1, BUN 17, creatinine 0.7. Today's electrolytes sodium is 139, potassium 4.4, BUN 17 and creatinine 0.7. Troponins 0.019, 0.060, 0.050. Albumin 2.1. Influenza A and B were negative. EKG shows a sinus tachycardia with PACs. CTA that was performed revealed that the patient's stomach was virtually entirely intrathoracic in location and there was a consult obtained with general surgery. At the time of my examination her nausea and vomiting have completely resolved. She denied any chest discomfort, mild shortness of breath. Throughout the night last night, patient developed hypotension requiring a fluid bolus, she received 750 mils fluid bolus and IV steroids continue to infuse at 100 mL per hour. She resp onded well to IV fluids, did not require vasopressor support. No further vomiting or diarrhea. Her oral Lasix has been placed on hold. Hemodynamically she is stable. Past Medical History Past Medical History: Atrial Fibrillation, Chest Pain / Angina, COPD, GERD/Reflux, Hypertension, Osteoarthritis (OA), Pneumonia Additional Past Medical History / Comment(s): Paroxysmal Afib, echo 01/2019 showed EF 50-55%, chronic respiratory failure with home oxygen at 2.5L/NC ATC, pulmonary fibrosis, chronic entire back pain, scoliosis, DDD, IBS, UTIs, seasonal allergies. History of Any Multi-Drug Resistant Organisms: None Reported Past Surgical History: Cholecystectomy, Joint Replacement Additional Past Surgical History / Comment(s): 11/2018 biliary stent at [facility], ovarian cyst removed, right knee replacement, colonoscopy-normal. Past Anesthesia/Blood Transfusion Reactions: No Reported Reaction Additional Past Anesthesia/Blood Transfusion Reaction / Comment(s): Pt has never recieved blood. Past Psychological History: Anxiety, Depression Additional Psychological History / Comment(s): Pt resides with her son. She is independent. She has home oxygen and a nebulizer. She uses a walker or cane prn. She has Residential home care. Smoking Status: Former smoker Past Alcohol Use History: None Reported Additional Past Alcohol Use History / Comment(s): Pt smoked less than a ppd for about 15-20 yrs. She quit smoking in 1987. Past Drug Use History: None Reported - Past Family History Sister(s) Family Medical History: Diabetes Mellitus Father Family Medical History: Congestive Heart Failure (CHF), Myocardial Infarction (NH) Additional Family Medical History / Comment(s): Father of CHF at 68yrs of age. Mother Family Medical History: CVA/TIA Additional Family Medical History / Comment(s): Mother of a massive CVA and of it at the age of 76yrs. Medications and Allergies Home Medications Medication Instructions Recorded Confirmed Type Omeprazole 20 mg PO DAILY 01/14/15 04/17/19 History traMADol HCL [Ultram] 50 mg PO Q6HR PRN 09/05/16 04/17/19 History Apixaban [Eliquis] 2.5 mg PO BID 01/23/19 04/17/19 History Metoprolol Tartrate [Lopressor] 25 mg PO BID 01/23/19 04/17/19 History Furosemide [Lasix] 20 mg PO DAILY #30 tab 01/28/19 04/17/19 Rx Albuterol Inhaler [Ventolin Hfa 2 puff INHALATION RT-Q6H PRN 03/13/19 04/17/19 History Inhaler] Ipratropium [place] 0.06%Nasal 1 spray EA NOSTRIL DAILY 03/13/19 04/17/19 History [Atrovent Nasal 0.06%] Sertraline HCl [Zoloft] 100 mg PO DAILY 03/13/19 04/17/19 History Ferrous Sulfate [Feosol] 325 mg PO DAILY 04/17/19 04/17/19 History Nystatin 100,000 Unit/ml Susp 5 ml PO QID 04/17/19 04/17/19 History [Mycostatin Oral Susp] Allergies Allergy/AdvReac Type Severity Reaction Status Date / Time Sulfa (Sulfonamide Allergy Rash/Hives Verified 04/17/19 08:10 Antibiotics) Physical Exam Vitals: Vital Signs Temp Pulse Pulse Pulse Resp BP BP 04/19/19 11:52 98.3 F 87 22 118/57 04/19/19 09:09 80 04/19/19 08:57 76 04/19/19 08:20 98.7 F 75 17 114/75 04/19/19 07:00 70 20 107/71 04/19/19 06:30 67 22 103/53 04/19/19 06:00 65 15 103/53 04/19/19 05:30 63 16 99/49 04/19/19 05:00 67 14 98/59 04/19/19 04:30 67 13 103/45 04/19/19 04:00 97.8 F 64 18 91/45 04/19/19 03:30 66 17 92/44 04/19/19 03:00 66 12 97/48 04/19/19 02:30 69 21 97/45 04/19/19 02:00 70 18 97/49 04/19/19 01:30 72 17 04/19/19 01:00 80 17 91/56 04/19/19 00:30 72 16 93/43 04/19/19 00:00 98 F 86 23 108/95 04/18/19 23:30 79 23 98/48 04/18/19 23:00 95 21 97/57 04/18/19 22:47 97.8 F 95 23 04/18/19 21:15 18 93/42 04/18/19 21:09 18 90/43 04/18/19 20:53 67/36 04/18/19 20:48 20 73/43 04/18/19 20:43 70/38 04/18/19 20:35 57/49 04/18/19 20:01 20 73/45 04/18/19 19:49 20 68/45 04/18/19 19:43 20 67/46 04/18/19 19:36 20 74/39 04/18/19 19:31 86 04/18/19 19:30 122 H 04/18/19 19:23 99.3 F 75 16 78/46 04/18/19 19:20 99 Pulse Ox 04/19/19 11:52 97 04/19/19 09:09 04/19/19 08:57 04/19/19 08:20 99 04/19/19 07:00 04/19/19 06:30 04/19/19 06:00 04/19/19 05:30 04/19/19 05:00 99 04/19/19 04:30 04/19/19 04:00 99 04/19/19 03:30 04/19/19 03:00 99 04/19/19 02:30 99 04/19/19 02:00 100 04/19/19 01:30 04/19/19 01:00 100 04/19/19 00:30 04/19/19 00:00 94 L 04/18/19 23:30 93 L 04/18/19 23:00 99 04/18/19 22:47 04/18/19 21:15 97 04/18/19 21:09 98 04/18/19 20:53 04/18/19 20:48 100 04/18/19 20:43 04/18/19 20:35 04/18/19 20:01 100 04/18/19 19:49 99 04/18/19 19:43 99 04/18/19 19:36 98 04/18/19 19:31 04/18/19 19:30 04/18/19 19:23 97 04/18/19 19:20 Intake and Output 04/19/19 04/19/19 04/19/19 06:59 14:59 22:59 Intake Total 100 200 Output Total 150 125 Balance -50 75 Intake: IV 100 200 Sodium Chloride 0.9% 1, 50 200 000 ml @ 100 mls/hr IV . Q10H [facility] Rx#:[id number] cefTRIAXone 1 gm In 50 Sodium Chloride 0.9% 50 ml @ 100 mls/hr IVPB Q24HR [facility] Rx#:[id number] Output: Urine 150 125 Other: Voiding Method Indwelling Catheter Indwelling Catheter Weight 50.349 kg GENERAL EXAM: Alert, pleasant, 83-year-old white female, on 2 L of oxygen, with a pulse ox of 95% mildly short of breath at rest, with increased shortness of breath with any activity. HEAD: Normocephalic/atraumatic. EYES: Normal reaction of pupils, equal size. Conjunctiva pink, sclera white. NOSE: Clear with pink turbinates. THROAT: No erythema or exudates. NECK: No masses, no JVD, no thyroid enlargement, no adenopathy. CHEST: No chest wall deformity. Symmetrical expansion. LUNGS: Diminished air entry with no crackles, wheeze, rhonchi or dullness. CVS: Regular rate and rhythm, normal S1 and S2, no gallops, no murmurs, no rubs ABDOMEN: Soft, nontender. No hepatosplenomegaly, normal bowel sounds, no guard ing or rigidity. EXTREMITIES: No clubbing, no edema, no cyanosis, 2+ pulses and upper and lower extremities. MUSCULOSKELETAL: Muscle strength and tone normal. SPINE: No scoliosis or deformity SKIN: No rashes CENTRAL NERVOUS SYSTEM: Alert and oriented -3. No focal deficits, tone is normal in all 4 extremities. PSYCHIATRIC: Alert and oriented -3. Appropriate affect. Intact judgment and insight. Results 04/19/19 02:16 04/19/19 02:16 Cardiac Enzymes 04/18/19 04/18/19 04/19/19 Range/Units 20:46 20:46 02:16 AST 24 (14-36) U/L Troponin I 0.019 0.060 H* (0.000-0.034) ng/mL 04/19/19 Range/Units 07:58 AST (14-36) U/L Troponin I 0.054 H* (0.000-0.034) ng/mL CBC 04/18/19 04/19/19 Range/Units 20:46 02:16 WBC 6.8 11.6 H (3.8-10.6) k/uL RBC 3.64 L 3.61 L (3.80-5.40) m/uL Hgb 9.0 L D 8.9 L (11.4-16.0) gm/dL Hct 29.5 L 29.2 L (34.0-46.0) % Plt Count 146 L 162 (150-450) k/uL Comprehensive Metabolic Panel 04/18/19 04/19/19 Range/Units 20:46 02:16 Sodium 140 139 (137-145) mmol/L Potassium 3.1 L 4.4 (3.5-5.1) mmol/L Chloride 111 H 110 H (98-107) mmol/L Carbon Dioxide 24 24 (22-30) mmol/L BUN 17 17 (7-17) mg/dL Creatinine 0.78 0.73 (0.52-1.04) mg/dL Glucose 80 111 H (74-99) mg/dL Calcium 7.8 L 7.6 L (8.4-10.2) mg/dL AST 24 (14-36) U/L ALT 17 (9-52) U/L Alkaline Phosphatase 96 (38-126) U/L Total Protein 4.4 L (6.3-8.2) g/dL Albumin 2.1 L (3.5-5.0) g/dL Current Medications Generic Name Dose Route Start Last Admin Trade Name Freq PRN Reason Stop Dose Admin Albuterol Sulfate 2.5 mg 04/17/19 10:04 04/19/19 08:57 Ventolin Nebulized INHALATION 2.5 mg RT-Q6H PRN Administration Shortness Of Breath Apixaban 2.5 mg 04/17/19 21:00 04/19/19 08:07 Eliquis PO 2.5 mg BID ALLIE Administration Aspirin 81 mg 04/20/19 09:00 Aspirin PO DAILY ALLIE Ferrous Sulfate 325 mg 04/18/19 09:00 04/19/19 08:07 Feosol PO 325 mg DAILY ALLIE Administration Sodium Chloride 1,000 mls @ 100 mls/hr 04/17/19 01:30 04/19/19 14:02 Saline 0.9% IV 100 mls/hr .Q10H [facility] Administration Ceftriaxone Sodium 1 gm/ 50 mls @ 100 mls/hr 12/11/19 20:45 04/19/19 08:08 Sodium Chloride IVPB 100 mls/hr Q24HR [facility] Administration Ipratropium [place] 1 spray 04/18/19 09:00 04/19/19 08:08 Atrovent Nasal EA NOSTRIL 1 spray DAILY [facility] Administration Metoprolol Tartrate 25 mg 04/17/19 21:00 04/19/19 08:07 Lopressor PO 25 mg BID ALLIE Administration Miscellaneous Information 1 each 04/18/19 22:35 Potassium Per Protocol MISCELLANE DAILY PRN Per Protocol Protocol Nystatin 500,000 unit 04/17/19 13:00 04/19/19 14:02 Mycostatin Oral Susp PO 500,000 unit QID ALLIE Administration Ondansetron HCl 4 mg 04/18/19 15:10 04/18/19 15:21 Zofran IVP 4 mg Q6HR PRN Administration Nausea And Vomiting Pantoprazole Sodium 40 mg 04/18/19 07:30 04/19/19 07:09 Protonix PO 40 mg AC-BRKFST ALLIE Administration Sertraline HCl 100 mg 04/18/19 09:00 04/19/19 08:07 Zoloft PO 100 mg DAILY ALLIE Administration Tramadol HCl 50 mg 04/18/19 17:20 04/18/19 23:49 Ultram PO 50 mg Q4H PRN Administration Mild to Moderate Pain Intake and Output 04/19/19 04/19/19 04/19/19 06:59 14:59 22:59 Intake Total 100 200 Output Total 150 125 Balance -50 75 Intake: IV 100 200 Sodium Chloride 0.9% 1, 50 200 000 ml @ 100 mls/hr IV . Q10H [facility] Rx#:[id number] cefTRIAXone 1 gm In 50 Sodium Chloride 0.9% 50 ml @ 100 mls/hr IVPB Q24HR [facility] Rx#:[id number] Output: Urine 150 125 Other: Voiding Method Indwelling Catheter Indwelling Catheter Weight 50.349 kg Patient Weight 04/20/19 06:59 Weight 50.349 kg 04/19/19 02:16 04/19/19 02:16 EKG Interpretations (text) EKG shows a sinus tachycardia with occasional PACs. Assessment and Plan Plan: Assessment and plan: #1. Shortness of breath, acute on chronic hypoxic respiratory failure, possible COPD exacerbation #2. Chronic IPF, with chronic hypoxemic respiratory failure #3. Hx of persistent Afib on oral anticoagulation in the form of Eliquis #4. COPD #5. Gerd #6. Hypertension #7. Osteoarthritis #8. History of a IBS #9. History of nicotine dependence, currently in remission #10 abnormal troponin, likely secondary to hypotension #11 hypokalemia, replaced #12 persistent nausea and vomiting, on IV fluids, #13 hiatal hernia, surgical consultation requested Plan We will obtain an echocardiogram with Doppler study. Continue Eliquis. Obtain BNP level. Continue metoprolol. Further recommendations to follow. DNP note has been reviewed, I agree with a documented findings and plan of care. Patient was seen and examined.
[2019-04-19] MEDS: traMADol 50 MG TAB PO PRN ×2 (15:55→22:21)
[2019-04-20] MEDS: SODIUM CHLORIDE 0.9% 1,000 ML IV SCH ×2 (01:04→08:13)
[2019-04-20 05:19] VITALS: BP 122/73; PULSE 63; RESP 15; TEMP 98.1
[2019-04-20] MEDS: PANTOPRAZOLE 40 MG TABLET PO SCH (08:13)
[2019-04-20] MEDS: NYSTATIN 100,000 UNIT/ML SUSP 500,000 UNIT/5 ML CUP PO SCH ×2 (08:13→14:54)
[2019-04-20] MEDS: APIXABAN 2.5 MG TABLET PO SCH (08:13)
[2019-04-20] MEDS: FERROUS SULFATE 325 MG TAB PO SCH (08:13)
[2019-04-20] MEDS: SERTRALINE 100 MG TAB PO SCH (08:13)
[2019-04-20] MEDS: METOPROLOL TARTRATE 25 MG TAB PO SCH (08:13)
[2019-04-20] MEDS ORDERED: ASPIRIN 81 MG PO SCH (09:00)
--- NOTE | 2019-04-20 09:54 | ECHOF ---
Referral Reason:abn trop MEASUREMENTS -------- HEIGHT: 157.5 cm WEIGHT: 50.3 kg BP: 150/83 RVIDd: 2.7 cm (< 3.3) IVSd: 1.3 cm (0.6 - 1.1) LVIDd: 3.7 cm (3.9 - 5.3) LVPWd: 1.2 cm (0.6 - 1.1) IVSs: 1.7 cm LVIDs: 2.4 cm LVPWs: 1.2 cm LA Diam: 2.6 cm (2.7 - 3.8) LAESV Index (A-L): 27.72 ml/m Ao Diam: 3.1 cm (2.0 - 3.7) AV Cusp: 2.2 cm (1.5 - 2.6) MV EXCURSION: 12.408 mm (> 18.000) MV EF SLOPE: 55 mm/s (70 - 150) EPSS: 0.7 cm MV E Jayden: 1.04 m/s MV DecT: 158 ms MV A Jayden: 0.77 m/s MV E/A Ratio: 1.35 RAP: 15.00 mmHg RVSP: 52.27 mmHg FINDINGS -------- Sinus rhythm. This was a technically adequate study. The left ventricular size is normal. There is mild concentric left ventricular hypertrophy. Overa ll left ventricular systolic function is mildly impaired with, an EF between 45 - 50 %. Mid inferio r LV wall motion is hypokinetic. Mid inferoseptal LV wall motion is hypokinetic. Apical inferio r LV wall motion is hypokinetic. Apical septum LV wall motion is hypokinetic. The right ventricle is normal in size. Normal LA size by volume 22+/-6 ml/m2. The right atrium is normal in size. Interatrial and interventricular septum intact. There is mild aortic valve sclerosis. The mitral valve leaflets are mildly thickened. Mild mitral annular calcification present. There is trace mitral regurgitation. Moderate tricuspid regurgitation present. There is moderate pulmonary hypertension. The right narda tricular systolic pressure, as measured by Doppler, is 52.27mmHg. There is no pulmonic regurgitation present. The aortic root size is normal. The inferior vena cava is dilated with no significant inspiratory collapse which is consistent estima jake right atrial pressure of >15 mmHg. There is no pericardial effusion. CONCLUSIONS -------- 1. Sinus rhythm. 2. This was a technically adequate study. 3. The left ventricular size is normal. 4. There is mild concentric left ventricular hypertrophy. 5. Overall left ventricular systolic function is mildly impaired with, an EF between 45 - 50 %. 6. Mid inferior LV wall motion is hypokinetic. 7. Mid inferoseptal LV wall motion is hypokinetic. 8. Apical inferior LV wall motion is hypokinetic. 9. Apical septum LV wall motion is hypokinetic. 10. The right ventricle is normal in size. 11. Normal LA size by volume 22+/-6 ml/m2. 12. The right atrium is normal in size. 13. Interatrial and interventricular septum intact. 14. There is mild aortic valve sclerosis. 15. The mitral valve leaflets are mildly thickened. 16. Mild mitral annular calcification present. 17. There is trace mitral regurgitation. 18. Moderate tricuspid regurgitation present. 19. There is moderate pulmonary hypertension. 20. The right ventricular systolic pressure, as measured by Doppler, is 52.27mmHg. 21. There is no pulmonic regurgitation present. 22. The aortic root size is normal. 23. The inferior vena cava is dilated with no significant inspiratory collapse which is consistent es timated right atrial pressure of >15 mmHg. 24. There is no pericardial effusion. SALES DEVELOPMENT EXECUTIVE: Carolyn Boykin RDCS
--- NOTE | 2019-04-20 11:40 | P.PN ---
Subjective Progress Note Date: 04/20/19 Principal diagnosis: Shortness of breath, dehydration, hypotension This is a 83-year-old white female patient with past medical history of IPF with chronic hypoxemic respiratory failure on the 2-1/2 L of oxygen per nasal cannula, severe kyphoscoliosis of thoracolumbar spine, a large hiatal hernia, chronic dysphagia related to large hiatal hernia, chronic atrial fibrillation on Eliquis, hypertension, chronic anxiety/depression, and COPD. We had recently seen the patient in consultation in March,, for acute exacerbation of COPD/pulmonary fibrosis. Patient had improved, and was discharged home. On 04/16/2019 patient presented to the emergency department or evaluation of increased weakness, sudden onset shortness of breath, hypoxemia with a pulse ox of 70% on a usual amount of oxygen, she had not been feeling well for a few days, increasingly weak, and patient had a low-grade fever on presentation. Complained of generalized body aches, loss appetite, nausea, vomiting and dehydration. Chest x-ray was completed showing moderate pulmonary fibrosis, hiatal hernia, no significant change from her previous admission in March 2019. Lab work showed a white blood cell count of 4.2, hemoglobin of 12.3, INR of 1.0, d-dimer was 2.76, and CTA chest has been ordered and is pending at this time, electrolytes were unremarkable with the exception of CO2 which is at 31, BUN is 22, creatinine 0.99, sets of troponins were negative, proBNP was 1130. Urinalysis showed trace leuks, but no significant white blood cell count or RBCs, no clear evidence of urinary tract infection. Patient has a fever this afternoon, with a temp of 100.2F, she is on 3 L of oxygen her pulse ox of 95%, he is hemodynamically stable, she is short of breath at rest, no acute distress. On 04/19/2019 patient seen in follow-up in the intensive care unit, overnight patient developed hypotension, requiring fluid bolus, patient received 750 mL fluid bolus, and his IV fluids are infusing at a rate of 100 ML per hour, patient responded well to IV fluids, did not require vasopressor support. No further vomiting or diarrhea, her oral Lasix was put on hold, this morning she i s awake and alert, in no acute distress, she denies any worsening shortness of breath she remains up-to-date as of oxygen with a pulse ox of 90%, she is afebrile, hemodynamically stable, will check influenza screen which was negative, today's labs have been reviewed, going with blood cell count of 11.6, hemoglobin of 8.9, sodium is 139, potassium is 4.4, chloride is 110, the rest of the left was in renal profile were within normal limits. Plasma lactic acid was normal at 1.3 and 1.6, troponin today is 0.019, and 0.060, patient denied any chest pain. Yesterday CTA chest showed no evidence of pulmonary embolism. Did show small bilateral pleural effusions, and scattered fibrosis bilaterally moderate in degree, no distinct mass or nodule. No pulmonary consolidation. Patient has an indwelling catheter in, and she is nonoliguric, she produced 1050 ML of urine overnight, he is on empiric antibiotics in the form of Rocephin. On 04/20/2019 patient seen in follow-up on medical surgical floor. She is awake and alert, she is in no acute distress. Lung sounds are clear on today's exam, no wheezing, no rhonchi, patient looks and feels good, vital signs are stable, she is on 2 L of oxygen with a pulse ox of 95%, she has had no further episodes of hypotension. She has been afebrile, hemodynamically stable, blood culture has shown no growth so far, patient did have elevated troponins, with the second and third one at 0.060, and 0.054, and cardiology is evaluating the patient. Objective - Vital Signs Vital signs: Vital Signs Temp 98.1 F 04/20/19 05:10 Pulse 63 04/20/19 05:10 Resp 15 04/20/19 05:10 BP 122/73 04/20/19 05:10 Pulse Ox 95 04/20/19 05:10 Intake & Output 04/19/19 04/20/19 04/20/19 18:59 06:59 18:59 Intake Total 400 1180 Output Total 250 900 Balance 150 280 Weight 50.349 kg Intake: IV 400 700 Sodium Chloride 0.9% 1, 400 700 000 ml @ 100 mls/hr IV . Q10H [facility] Rx#:[id number] Oral 480 Output: Urine 250 900 Other: Voiding Method Indwelling Catheter Indwelling Catheter - Exam GENERAL EXAM: Alert, pleasant, 83-year-old white female, on 3 L of oxygen, with a pulse ox of 95% fairly comfortable, no acute distress, does have exertional dyspnea HEAD: Normocephalic/atraumatic. EYES: Normal reaction of pupils, equal size. Conjunctiva pink, sclera white. NOSE: Clear with pink turbinates. THROAT: No erythema or exudates. NECK: No masses, no JVD, no thyroid enlargement, no adenopathy. CHEST: No chest wall deformity. Symmetrical expansion. LUNGS: Diminished air entry with basilar crackles, but no wheeze, rhonchi or dullness. CVS: Regular rate and rhythm, normal S1 and S2, no gallops, no murmurs, no rubs ABDOMEN: Soft, nontender. No hepatosplenomegaly, normal bowel sounds, no guarding or rigidity. EXTREMITIES: No clubbing, no edema, no cyanosis, 2+ pulses and upper and lower extremities. MUSCULOSKELETAL: Muscle strength and tone normal. SPINE: No scoliosis or deformity SKIN: No rashes CENTRAL NERVOUS SYSTEM: Alert and oriented -3. No focal deficits, tone is normal in all 4 extremities. PSYCHIATRIC: Alert and oriented -3. Appropriate affect. Intact judgment and insight. - Labs CBC & Chem 7: 04/19/19 02:16 04/19/19 02:16 Labs: Microbiology - Last 24 Hours (Table) 04/18/19 20:46 Blood Culture - Preliminary Blood No Growth after 24 hours Assessment and Plan Plan: Assessment: #1. Hypotension related to hypovolemic state, secondary to nausea, vomiting and diarrhea, patient has received 0.75 L of IV fluid bolus responded well #2. Shortness of breath, acute on chronic hypoxic respiratory failure, elevated d-dimer, rule out pulmonary embolism, with the patient is already on oral anticoagulation for history of A. fib #3. Nausea, vomiting, diarrhea, improved #4. Low-grade fever, rule out infectious process, patient is on empiric antibiotics. CT chest did not show pulmonary consolidation, urinalysis was negative #5. Elevated troponin, patient denies any chest pain, we'll obtain an EKG #6. Chronic IPF, with chronic hypoxemic respiratory failure #7. Hx of Afib on oral anticoagulation in the form of Eliquis #8. COPD #9. /Reflux #10. Hypertension #11. Osteoarthritis #12. History of a IBS #13. History of nicotine dependence, currently in remission Plan: Patient remains stable from pulmonary perspective, no hypotension, no nausea, vomiting. Continue incentive worsening shortness of breath, breathing is stable, improving. No cough or congestion, patient is being considered for discharge to subacute rehab in [place] sometime today. She stable for discharge from pulmonary perspective. I performed a history & physical examination of the patient and discussed their management with my nurse practitioner, Marisela Yee. I reviewed the nurse practitioner's note and agree with the documented findings and plan of care. Lung sounds are positive for diminished breath sounds. The findings and the impression was discussed with the patient. I attest to the documentation by the nurse practitioner. Time with Patient: Less than 30
--- NOTE | 2019-04-20 13:54 | P.DS ---
Providers Date of admission: 04/17/19 11:17 Expected date of discharge: 04/20/19 Attending physician: Candido Chappell Consults: 04/18/19 15:17 Consult Physician Urgent Consulting Provider: Emily Tim Consult Reason/Comments: + dimer fever Do you want consulting provider notified?: Yes 04/18/19 16:37 Consult Physician Urgent Consulting Provider: Estrella Lazo Consult Reason/Comments: hiatal hernia Do you want consulting provider notified?: Yes 04/19/19 08:32 Consult Physician Urgent Consulting Provider: Edwin Daniels Consult Reason/Comments: chest pain +troponin Do you want consulting provider notified?: Yes Primary care physician: Candido Chappell Hospital Course: 83-year-old white female patient with past medical history of IPF with chronic hypoxemic respiratory failure on the 2-1/2 L of oxygen per nasal cannula, severe kyphoscoliosis of thoracolumbar spine, a large hiatal hernia, chronic dysphagia related to large hiatal hernia, chronic atrial fibrillation on Eliquis, hypertension, chronic anxiety/depression, and COPD. We had recently seen the patient in consultation in March,, for acute exacerbation of COPD/pulmonary fibrosis. Patient had improved, and was discharged home. On 04/16/2019 patient presented to the emergency department or evaluation of increased weakness, sudden onset shortness of breath, hypoxemia with a pulse ox of 70% on a usual amount of oxygen, she had not been feeling well for a few days, increasingly weak, and patient had a low-grade fever on presentation. Complained of generalized body aches, loss appetite, nausea, vomiting and dehydration. Chest x-ray was completed showing moderate pulmonary fibrosis, hiatal hernia, no significant change from her previous admission in March 2019. Lab work showed a white blood cell count of 4.2, hemoglobin of 12.3, INR of 1.0, d-dimer was 2.76, and CTA chest has been ordered and is pending at this time, electrolytes were unremarkable with the exception of CO2 which is at 31, BUN is 22, creatinine 0.99, sets of troponins were negative, proBNP was 1130. Urinalysis showed trace leuks, but no significant white blood cell count or RBCs, no clear evidence of urinary tract infection. Patient has a fever this afternoon, with a temp of 100.2F, she is on 3 L of oxygen her pulse ox of 95%, he is hemodynamically stable, she is short of breath at rest, no acute distress. On 04/19/2019 patient seen in follow-up in the intensive care unit, overnight patient developed hypotension, requiring fluid bolus, patient received 750 mL fluid bolus, and his IV fluids are infusing at a rate of 100 ML per hour, patient responded well to IV fluids, did not require vasopressor support. No further vomiting or diarrhea, her oral Lasix was put on hold, this morning she is awake and alert, in no acute distress, she denies any worsening shortness of breath she remains up-to-date as of oxygen with a pulse ox of 90%, she is afebrile, hemodynamically stable, will check influenza screen which was negative, today's labs have been reviewed, going with blood cell count of 11.6, hemoglobin of 8.9, sodium is 139, potassium is 4.4, chloride is 110, the rest of the left was in renal profile were within normal limits. Plasma lactic acid was normal at 1.3 and 1.6, troponin today is 0.019, and 0.060, patient denied any chest pain. Yesterday CTA chest showed no evidence of pulmonary embolism. Did show small bilateral pleural effusions, and scattered fibrosis bilaterally moderate in degree, no distinct mass or nodule. No pulmonary consolidation. Patient has an indwelling catheter in, and she is nonoliguric, she produced 1050 ML of urine overnight, he is on empiric antibiotics in the form of Rocephin. On 04/20/2019 patient seen in follow-up on medical surgical floor. She is awake and alert, she is in no acute distress. Lung sounds are clear on today's exam, no wheezing, no rhonchi, patient looks and feels good, vital signs are stable, she is on 2 L of oxygen with a pulse ox of 95%, she has had no further episodes of hypotension. She has been afebrile, hemodynamically stable, blood culture has shown no growth so far, patient did have elevated troponins, with the second and third one at 0.060, and 0.054, and cardiology is evaluating the patient. Patient's blood cultures have been negative and remains afebrile with normal white blood count; we will discontinue IV antibiotics; [facility] Patient Condition at Discharge: Fair Plan - Discharge Summary New Discharge Prescriptions: New Aspirin 81 mg PO DAILY chew traMADol HCl [Ultram] 50 mg PO Q4H PRN 3 Days #15 tab PRN Reason: Mild To Moderate Pain Continue Omeprazole 20 mg PO DAILY traMADol HCL [Ultram] 50 mg PO Q6HR PRN PRN Reason: Pain Metoprolol Tartrate [Lopressor] 25 mg PO BID Apixaban [Eliquis] 2.5 mg PO BID Furosemide [Lasix] 20 mg PO DAILY #30 tab Sertraline HCl [Zoloft] 100 mg PO DAILY Ipratropium [place] 0.06%Nasal [Atrovent Nasal 0.06%] 1 spray EA NOSTRIL DAILY Albuterol Inhaler [Ventolin Hfa Inhaler] 2 puff INHALATION RT-Q6H PRN PRN Reason: Shortness Of Breath Ferrous Sulfate [Iron (65 MG Elemental)] 325 mg PO DAILY Nystatin 100,000 Unit/ml Susp [Mycostatin Oral Susp] 5 ml PO QID Discharge Medication List Omeprazole 20 mg PO DAILY 01/14/15 [History] traMADol HCL [Ultram] 50 mg PO Q6HR PRN 09/05/16 [History] Apixaban [Eliquis] 2.5 mg PO BID 01/23/19 [History] Metoprolol Tartrate [Lopressor] 25 mg PO BID 01/23/19 [History] Furosemide [Lasix] 20 mg PO DAILY #30 tab 01/28/19 [Rx] Albuterol Inhaler [Ventolin Hfa Inhaler] 2 puff INHALATION RT-Q6H PRN 03/13/19 [History] Ipratropium [place] 0.06%Nasal [Atrovent Nasal 0.06%] 1 spray EA NOSTRIL DAILY 03/13/19 [History] Sertraline HCl [Zoloft] 100 mg PO DAILY 03/13/19 [History] Ferrous Sulfate [Iron (65 MG Elemental)] 325 mg PO DAILY 04/17/19 [History] Nystatin 100,000 Unit/ml Susp [Mycostatin Oral Susp] 5 ml PO QID 04/17/19 [History] Aspirin 81 mg PO DAILY chew 04/20/19 [Rx] traMADol HCl [Ultram] 50 mg PO Q4H PRN 3 Days #15 tab 04/20/19 [Rx] Follow up Appointment(s)/Referral(s): Candido Chappell MD [Primary Care Provider] - 1-2 days Discharge Disposition: TRANSFER TO SNF/ECF
--- NOTE | 2019-04-20 13:59 | P.PN ---
Subjective This is a pleasant 83-year-old female past medical history significant for chronic atrial fibrillation on traffic assistant anti-coagulation, hypertension, COPD, idiopathic pulmonary fibrosis and COPD. She does not follow with a loan auditor regularly. She is seen and examined sitting up in bed in no acute distress. She denies chest pain, shortness of breath, dizziness, palpitations or weakness. Echocardiogram obtained reveals mildly impaired LV systolic function with EF 45-50% with mid inferior, mid inferior septal, apical inferior and api nirmal septal wall motion hypokinesia, moderate tricuspid regurgitation and pulmonary hypertension with an RVSP of 52 mmHg.blood pressure 124/76 heart rate 87 afebrile maintaining oxygen saturation on nasal cannula.currently maintained on Eliquis 2.5 mg twice a day, aspirin 81 mg daily and Lopressor 25 mg twice a day. ASSESSMENT Acute hypoxic respiratory failure, pulse ox 70% at home on oxygen Shortness of breath Abnormal troponin, secondary to hypoxia and hypotension. Supply-demand mismatch. Type II event. Paroxysmal atrial fibrillation on traffic assistant anti-coagulation Hiatal hernia Hypertension COPD Pulmonary fibrosis PLAN Continue current medical regimen. Wall motion abnormalities present in 2014, no acute changes. Follow up in the office with Dr. Abbott upon discharge. Nurse Practitioner note has been reviewed, I agree with a documented findings and plan of care. Patient was seen and examined. Objective - Vital Signs Vital signs: Vital Signs Temp 98.1 F 04/20/19 05:10 Pulse 63 04/20/19 05:10 Resp 15 04/20/19 05:10 BP 122/73 04/20/19 05:10 Pulse Ox 95 04/20/19 05:10 Intake & Output 04/19/19 04/20/19 04/20/19 18:59 06:59 18:59 Intake Total 400 1180 Output Total 250 900 Balance 150 280 Weight 50.349 kg Intake: IV 400 700 Sodium Chloride 0.9% 1, 400 700 000 ml @ 100 mls/hr IV . Q10H [facility] Rx#:[id number] Oral 480 Output: Urine 250 900 Other: Voiding Method Indwelling Catheter Indwelling Catheter - Labs CBC & Chem 7: 04/19/19 02:16 04/19/19 02:16 Labs: Microbiology - Last 24 Hours (Table) 04/18/19 20:46 Blood Culture - Preliminary Blood No Growth after 24 hours
[2019-04-20] MEDS: IPRATROPIUM BROMIDE 0.06% NASAL SPRAY (15 ML) EA NOSTRIL SCH (14:53)
== END 2019-04-20 14:59 | DRG 189 ==
LOC: EC 23:36 → 1SOBS 04-17 01:25 → OBSVTOIN 04-17 11:17 → 2SICU 04-18 21:40 → 4MS4W 04-19 22:16
PROVIDERS: ADMIT Family Medicine; ATTEND Family Medicine
DX: J96.21 Acute and chronic respiratory failure with hypoxia (principal); I48.19 Other persistent atrial fibrillation; J44.1 Chronic obstructive pulmonary disease with (acute) exacerbation; J90 Pleural effusion, not elsewhere classified; E86.0 Dehydration; E86.1 Hypovolemia; E87.6 Hypokalemia; F32.9 Major depressive disorder, single episode, unspecified; F41.9 Anxiety disorder, unspecified; G89.29 Other chronic pain; I07.1 Rheumatic tricuspid insufficiency; I95.9 Hypotension, unspecified; I10 Essential (primary) hypertension; I27.20 Pulmonary hypertension, unspecified; J84.112 Idiopathic pulmonary fibrosis; K21.9 Gastro-esophageal reflux disease without esophagitis; K44.9 Diaphragmatic hernia without obstruction or gangrene; R13.10 Dysphagia, unspecified; K59.00 Constipation, unspecified; M19.90 Unspecified osteoarthritis, unspecified site; M41.9 Scoliosis, unspecified; Z79.01 Long term (current) use of anticoagulants; Z79.82 Long term (current) use of aspirin; Z79.899 Other long term (current) drug therapy; Z82.3 Family history of stroke; Z82.49 Family history of ischemic heart disease and other diseases of the circulatory system; Z83.3 Family history of diabetes mellitus; Z87.891 Personal history of nicotine dependence; Z96.651 Presence of right artificial knee joint; Z99.81 Dependence on supplemental oxygen; R00.0 Tachycardia, unspecified; R33.9 Retention of urine, unspecified; Z87.01 Personal history of pneumonia (recurrent); Z88.2 Allergy status to sulfonamides; I49.1 Atrial premature depolarization; R79.89 Other specified abnormal findings of blood chemistry
CPT/HCPCS: 36415; 71046; 71275; 80048; 80053; 80061; 81001; 82550; 83605; 83735; 83880; 84100; 84443; 84484; 85025; 85379; 85610; 85730; 87040; 87502; 93005; 93306; 94640; 96360; 99285